=== PATIENT | female | born 1950 | race Caucasian/White ===

== ENCOUNTER → 2024-01-26 10:58 | Outpatient (REF) | payer BC, SELFPAY | LOC: HWRAD 10:58 | PROVIDERS: ATTENDING PHYSICIAN Internal Medicine Hematology & Oncology; FAMILY PHYSICIAN Family Medicine | DX: C25.0 Malignant neoplasm of head of pancreas (principal); D64.9 Anemia, unspecified; D39.11 Neoplasm of uncertain behavior of right ovary | CPT/HCPCS: 71260; 74177; Q9967 ==

== ENCOUNTER → 2024-03-03 10:49 | Outpatient (REF) | payer BC, SELFPAY | LOC: PET 10:49 | PROVIDERS: ATTENDING PHYSICIAN Internal Medicine Hematology & Oncology | DX: C25.0 Malignant neoplasm of head of pancreas (principal) | CPT/HCPCS: 78815; A9552 ==

== ENCOUNTER → 2024-04-21 10:44 | Outpatient (REF) | payer BC, SELFPAY | LOC: HWRAD 10:44 | PROVIDERS: ATTENDING PHYSICIAN Internal Medicine Hematology & Oncology; FAMILY PHYSICIAN Family Medicine | DX: C25.0 Malignant neoplasm of head of pancreas (principal); D64.9 Anemia, unspecified; C79.61 Secondary malignant neoplasm of right ovary; C79.62 Secondary malignant neoplasm of left ovary | CPT/HCPCS: 71260; 74177; Q9967 ==

== ENCOUNTER → 2024-04-29 11:05 | Outpatient (REF) | payer BC, SELFPAY | LOC: RCS 11:05 | PROVIDERS: ATTENDING PHYSICIAN Internal Medicine Critical Care Medicine; FAMILY PHYSICIAN Family Medicine | DX: R01.1 Cardiac murmur, unspecified (principal) | CPT/HCPCS: 93306 ==

== ENCOUNTER 2024-05-15 06:35 | Day surgery (SDC) | payer BC, SELFPAY ==
[2024-05-04 14:04] VITALS: BMI 19.2
[2024-05-04 14:31] LABS: Hematocrit 33.7 % (37.0-47.0); Hemoglobin 11.1 g/dL (12.0-16.0); Mean Corp Hgb Conc. 32.9 g/dL (33.0-37.0); Mean Corpuscular Hgb 28.9 pg (27.0-31.0); Mean Corpuscular Volume 87.8 fL (81.0-99.0); Mean Platelet Volume 9.3 fL (7.4-10.4); Platelet Count 352 10^3/uL (130-400); Red Blood Cell Count 3.84 10^6/uL (4.20-5.40); Red Cell Dist. Width 14.8 % (11.5-14.5); White Blood Cell Count 5.3 10^3/uL (4.8-10.8)
[2024-05-04 14:40] LABS: INR 0.91; PT 12.3 Sec (11.4-14.6)
[2024-05-04 14:41] LABS: APTT 28.2 Sec (23.4-35.0)
[2024-05-04 14:52] LABS: Blood Urea Nitrogen 22 mg/dl (7-17); Calcium 9.5 mg/dl (8.4-10.2); Carbon Dioxide 25 mmol/L (22-30); Chloride 102 mmol/L (98-107); Estimated Creatinine Clearance 43 ml/min; Glucose 71 mg/dl (70-99); Potassium 4.5 mmol/L (3.5-5.1); Sodium 139 mmol/L (135-145); eGFR > 60.00
[2024-05-15] VITALS (10 sets, daily range): BP systolic 94–140; BP diastolic 54–101; BMI 19.2
[2024-05-15] MEDS: DUONEB 3 ML INH (08:22)
--- NOTE | 2024-05-15 11:46 | SUR.PHASEI ---
comfortable, Dr Caal visits in pacu - has reviewed CXR and okay for discharge. No SOB, no hemoptysis. Phase II started in pacu
== END 2024-05-15 11:43 | disposition home or self-care (01) ==
LOC: SDS 06:35
PROVIDERS: ATTENDING PHYSICIAN Internal Medicine Critical Care Medicine; FAMILY PHYSICIAN Nurse Practitioner Family
DX: R91.1 Solitary pulmonary nodule (principal)
CPT/HCPCS: 31629; 31623; 31627; 31654; 31624; 88172; 88173; 88305; 36415; 71045; 76000; 80048; 85027; 85610; 85730; 87015; 87070; 87102; 87116; 87205; 88112; 88333; 93005; 94640; C1887

== ENCOUNTER → 2024-06-09 08:48 | Outpatient (REF) | payer BC, SELFPAY | LOC: RAD 08:48 | PROVIDERS: ATTENDING PHYSICIAN Internal Medicine Hematology & Oncology; FAMILY PHYSICIAN Family Medicine | DX: D64.9 Anemia, unspecified (principal); C79.62 Secondary malignant neoplasm of left ovary; C79.61 Secondary malignant neoplasm of right ovary | CPT/HCPCS: 71250 ==

== ENCOUNTER → 2024-06-23 07:48 | Outpatient (REF) | payer BC, SELFPAY | LOC: PET 07:48 | PROVIDERS: ATTENDING PHYSICIAN Internal Medicine Hematology & Oncology | DX: C25.0 Malignant neoplasm of head of pancreas (principal) | CPT/HCPCS: 78815; A9552 ==

== ENCOUNTER → 2024-07-05 10:38 | Outpatient (REF) | payer BC, SELFPAY | LOC: WDC 10:38 | PROVIDERS: ATTENDING PHYSICIAN Family Medicine | DX: Z12.31 Encounter for screening mammogram for malignant neoplasm of breast (principal) | CPT/HCPCS: 77063; 77067 ==

== ENCOUNTER → 2024-08-31 08:45 | Outpatient (REF) | payer BC, SELFPAY | LOC: RSP 08:45 | PROVIDERS: REFERRING PHYSICIAN Internal Medicine Hematology & Oncology | DX: R91.1 Solitary pulmonary nodule (principal) | CPT/HCPCS: 94727; 94729; 88738; 93005; 94010 ==

== ENCOUNTER → 2024-10-02 07:25 | Outpatient (REF) | payer BC, SELFPAY ==
[2024-10-02 07:46] VITALS: BP 138/71; BP_SYST 77
[2024-10-02] MEDS: VANCOCIN 200 IV (08:10)
[2024-10-02 09:20] VITALS: BP 122/66; BP_SYST 68
[2024-10-02 09:48] VITALS: BP 115/64
== END ==
LOC: RADI 07:25
PROVIDERS: ATTENDING PHYSICIAN Internal Medicine Hematology & Oncology; FAMILY PHYSICIAN Family Medicine
DX: C25.0 Malignant neoplasm of head of pancreas (principal)
CPT/HCPCS: 36561; 76937; 77001; 99152; 99153; C1788

== ENCOUNTER → 2024-10-04 07:24 | Outpatient (REF) | payer BC, SELFPAY | LOC: RAD 07:24 | PROVIDERS: ATTENDING PHYSICIAN Internal Medicine Hematology & Oncology; FAMILY PHYSICIAN Family Medicine | DX: C78.02 Secondary malignant neoplasm of left lung (principal); C25.0 Malignant neoplasm of head of pancreas; D64.9 Anemia, unspecified; C79.62 Secondary malignant neoplasm of left ovary; C79.61 Secondary malignant neoplasm of right ovary; R91.1 Solitary pulmonary nodule | CPT/HCPCS: 71260; 74177; Q9967 ==

== ENCOUNTER → 2024-11-27 08:48 | Outpatient (REF) | payer BC, SELFPAY | LOC: RAD 08:48 | PROVIDERS: ATTENDING PHYSICIAN Internal Medicine Hematology & Oncology; FAMILY PHYSICIAN Family Medicine | DX: C25.0 Malignant neoplasm of head of pancreas (principal); C79.62 Secondary malignant neoplasm of left ovary; D64.9 Anemia, unspecified; C79.61 Secondary malignant neoplasm of right ovary; R91.1 Solitary pulmonary nodule; C79.02 Secondary malignant neoplasm of left kidney and renal pelvis | CPT/HCPCS: 71260; 74177; 93306; Q9967 ==

== ENCOUNTER 2024-12-22 12:54 | Inpatient (IN) | payer BC, MEDICARE, SELFPAY ==
[2024-12-22] VITALS (9 sets, daily range): BP systolic 103–172; BP diastolic 62–80; BMI 17.8; BMI 17.7
--- NOTE | 2024-12-22 07:30 | ED.GENMED ---
History of Present Illness
General
Chief Complaint: Abdominal Pain
Source: patient and spouse (Spouse reports patient follows with oncology)
Exam Limitations: none
Time Seen by Provider: 12/22/24 07:14
Nursing documentation reviewed up to this point in time: agreed with
History of Present Illness
History of Present Illness:
74-year-old female presents to the emergency department due to severe lower abdominal cramping since 2:30 AM, as well as nausea and vomiting. She took gabapentin but vomited it. No aggravating or relieving factors. She has a history of pancreatic
cancer.
Past History
Past History
ED Past Medical History: Cancer (Pancreatic)
ED Past Surgical History: Cholecystectomy and Other
Social History
Tobacco: Former smoker
Alcohol: None
Drug: None
Personal:
Living: with family
Review of Systems
Review of Systems
Allergies reviewed?: Yes
All Other Systems: Not applicable
Constitutional: Reports no symptoms
EENT: Reports no symptoms
Respiratory: Reports no symptoms
Cardiac: Reports no symptoms
ABD/GI: Reports abdominal pain, nausea and vomiting
: Reports no symptoms
Musculoskeletal: Reports no symptoms
Skin: Reports no symptoms
Neurological: Reports no symptoms
Endocrine: Reports no symptoms
Hematologic/Lymphatic: Reports no symptoms
Psychiatric: Reports no symptoms
Phy Exam
Physical Exam
Physical Exam:
Physical Exam
General: no apparent distress, not acutely ill
Neck: supple. no meningeal signs. normal posterior pharynx
Heart: s1/s2 regular rate and rhythm, no murmur. equal radial
pulses.
HEENT: Pupils equal round reactive to light, EOMI
Lungs: no acute respiratory distress. clear bilaterally
Abdomen: normal bowel sounds. Midline abdominal scarring, diffuse tenderness no rebound or guarding.
Neuro: alert and oriented. no focal neurological deficits cranial nerves II through XII intact
Skin: no rash
Psychiatric: well kept. interactive and cooperative
Extremities: no edema. no calf tenderness. negative homans. good distal pulses
Course
Orders/Labs/Results
Orders:
Orders
12/22/24 07:29
CT Abd/Pel (IV only)-DH only Urgent
Comment:
Reason For Exam: diffuse abd pain
Cardiac Monitoring- Treatment ONCE
IV Insert/Care/Rem.- Treatment PRN
HYDROmorphone [Dilaudid] 0.5 mg IV NOW STA
Ondansetron Injectable [Zofran] 4 mg IV NOW STA
12/22/24 07:30
Lactated Ringers [Lr] 1,000 ml IV BOLUS
12/22/24 08:09
Complete Blood Count/With Diff Urgent
Comprehensive Metabolic Panel Urgent
Lipase Urgent
12/22/24 09:11
HYDROmorphone [Dilaudid] 0.5 mg IV NOW STA
12/22/24 11:17
HYDROmorphone [Dilaudid] 0.5 mg IV NOW STA
12/22/24 11:51
Admit/Transfer Patient As Directed
Co-Sign Provider:
Level of Care: Inpatient admission
Assign to:: Medical/Surgical
Physician / Group: [place]
Diagnosis: SBO
Reason for Hospitalization: NPO, surgical consult
Expected length of stay greater than two midnights?: Yes
ELOS- Estimated Length of Stay in days: 3
I certify the patient meets the requirements for IP care: Yes
PRN Pain Medication Management As Directed
May give lesser potent ordered pain med per pt: Yes
preference::
Protocol:: Medication orders for pain may be administered in a
manner that supports deferring to patient preference
when the pt is:
- Requesting an ordered lesser potent pain medication.
Least to most potent pain medications are defined
as: acetaminophen < NSAID < tramadol < opioids
(morphine, oxycodone, hydromorphone).
- Requesting a lesser dose of the same medication IF
ORDERED.
- Requesting a less intrusive route of administration
if both routes are prescribed by the provider (PO <
IV).
12/22/24 11:52
Code Status As Directed
Resuscitation Status: Full Code
Abnormal Lab Results
12/22/24
08:09
RBC 3.92 L 10^6/uL
(4.20-5.40)
Hgb 10.3 L g/dL
(12.0-16.0)
Hct 31.3 L %
(37.0-47.0)
MCV 79.8 L fL
(81.0-99.0)
MCH 26.3 L pg
(27.0-31.0)
MCHC 32.9 L g/dL
(33.0-37.0)
RDW 16.6 H %
(11.5-14.5)
Absolute Lymphs (auto) 0.3 L 10^3/uL
(1.2-3.4)
Neutrophils % 90.8 H %
(42.2-75.2)
Lymphocytes % 4.5 L %
(20.5-51.1)
Sodium 133 L mmol/L
(135-145)
Creatinine 0.4 L mg/dL
(0.6-1.0)
Glucose 169 H mg/dl
(70-99)
12/22/24 08:09
12/22/24 08:09
Vital Signs
Initial and Last Documented VS:
Initial Vital Signs
Temp Pulse Resp BP Pulse Ox
97.6 F 64 18 162/78 99
12/22/24 07:08 12/22/24 07:08 12/22/24 07:08 12/22/24 07:08 12/22/24 07:08
Last Documented Vital Signs
Temp Pulse Resp BP Pulse Ox
97.6 F 71 19 149/62 96
12/22/24 07:08 12/22/24 11:00 12/22/24 11:00 12/22/24 11:00 12/22/24 11:00
MDM/Problems Addressed
Differential Diagnosis Includes:
Bowel obstruction, diverticulitis
MDM/Problems Addressed:
74-year-old female with small bowel obstruction. Admit to hospitalist. General surgery notified
Chronic conditions affecting care: Previous abdomnial surgery (Whipple) and Cancer (Pancreatic cancer)
Acute Exacerbation and/or Progression of Chronic Illness: Previous abdomnial surgery (Whipple) and Cancer (Pancreatic cancer)
*Radiology
Radiology exam reviewed: radiology read reviewed (CT abdomen pelvis shows small bowel obstruction)
*Pulse Oximetry
Patient hypoxic: no
*Critical Care Note
Total Time (30-74mins, 75-104mins- exclusive of procedures): Not Applicable
Patient Management
Social determinants of health affecting care: Living situation and Strong social support
Discussion with other providers: Hospitalist and Leadership Development Instructor (General surgery)
Escalation/DeEscalation of care consider admission/obs:
Admission indicated
ED Attending Note
-
Portions of this chart may have been created with voice recognition software.� Occasional wrong word or��sound alike� substitutions may have occurred due to the inherent limitations of voice recognition software.
Discharge Plan
Departure
Patient Disposition: Admit
Date of Disposition: 12/22/24
Time of Disposition: 10:21
Admit to: Med/Surg
Presentation/result/management discussed w/ accepting MD/DO: Hospitalist
Patient with high blood pressure during this ER visit?: Yes
Condition: Fair
Discharge Problem:
Small bowel obstruction
Prescriptions:
No Action
Centrum 1 EACH tablet
1 ea PO DAILY
ascorbic acid (vitamin C) 500 MG capsule
500 mg PO DAILY
lansoprazole 30 mg Capsule,Delayed Release(Dr/Ec)
30 mg PO DAILY
Creon 24,000-76,000 -120,000 unit Capsule,Delayed Release(Dr/Ec)
1 cap PO TID
gabapentin 300 mg Capsule
300 mg PO BID
polyethylene glycol 3350 [Miralax] 17 gram/dose Powder
17 g PO DAILY
Prolia 60 mg/mL Syringe
60 mg SC [id number]
lorazepam 0.5 mg Tablet
0.5 mg PO HSPRN PRN (Reason: SLEEP)
ibuprofen [Advil] 200 mg Tablet
600 mg PO DAILYPRN PRN (Reason: MILD PAIN)
Referrals:
Myesha Hall MD [Family Provider] -
Interventions
Interventions:
*Risk Screen - Suicide Last Done: 12/22/24 07:08
*General Assessment Last Done: 12/22/24 07:08
*Neglect/Abuse Screening Last Done: 12/22/24 07:08
IP-Uxqxdg-Pnalmzqidv Assessment Last Done: 12/22/24 08:30
Discharge Date and Time
Print Language: GUAMANIAN
[2024-12-22] MEDS: DILAUDID 0.5 MG IV ×6 (08:11→22:33)
[2024-12-22] MEDS: ZOFRAN 4 MG IV ×2 (08:11→14:41)
[2024-12-22] MEDS: LR 1000 IV ×2 (08:15→14:32)
[2024-12-22 08:25] LABS: % Basophils 0.5 % (0-2); % Eosinophils 0.2 % (0-6); % Immature Granulocytes 0.2 % (0-0.5); % Lymphocytes 4.5 % (20.5-51.1); % Monocytes 3.8 % (1.7-9.3); % Neutrophils 90.8 % (42.2-75.2); Absolute Lymphocytes 0.3 10^3/uL (1.2-3.4); Absolute Monocytes 0.2 10^3/uL (0.1-0.6); Absolute Neutrophils 5.3 10^3/uL (1.4-6.5); Hematocrit 31.3 % (37.0-47.0); Hemoglobin 10.3 g/dL (12.0-16.0); Mean Corp Hgb Conc. 32.9 g/dL (33.0-37.0); Mean Corpuscular Hgb 26.3 pg (27.0-31.0); Mean Corpuscular Volume 79.8 fL (81.0-99.0); Mean Platelet Volume 8.8 fL (7.4-10.4); Nucleated Red Blood Cells % 0 %; Platelet Count 330 10^3/uL (130-400); Red Blood Cell Count 3.92 10^6/uL (4.20-5.40); Red Cell Dist. Width 16.6 % (11.5-14.5); White Blood Cell Count 5.8 10^3/uL (4.8-10.8)
[2024-12-22 08:41] LABS: ALT (SGPT) 18 U/L (0-35); AST (SGOT) 20 U/L (14-36); Albumin 4.3 g/dl (3.5-5.0); Alkaline Phosphatase 65 U/L (38-126); Blood Urea Nitrogen 16 mg/dl (7-17); Carbon Dioxide 24 mmol/L (22-30); Chloride 103 mmol/L (98-107); Estimated Creatinine Clearance 59 ml/min; Glucose 169 mg/dl (70-99); Lipase 42 U/L (23-300); Potassium 4.3 mmol/L (3.5-5.1); Sodium 133 mmol/L (135-145); Total Bilirubin 0.3 mg/dl (0.2-1.3); Total Protein 6.7 g/dl (6.3-8.2); eGFR > 60.00
--- NOTE | 2024-12-22 11:03 | CON.GS ---
Addendum entered and electronically signed by Harry Allen MD 12/22/24 16:15:
Patient seen and examined.
Patient is a 74 yo F with a PMH of GERD, RA, h/o DVT, and stage IV pancreatic cancer s/p open Whipple procedure with known metastases to the ovaries s/p DELMAR/BSO in 2023 and lung s/p VATS procedure in 09/2024 currently on chemotherapy. Ms. Mercado
presents with abdominal discomfort and distention. She states that her symptoms began somewhat acutely yesterday evening. Associated nausea and vomiting. Pain mostly localized to the RLQ. She did note some mild reflux in the 24 hours preceding
her symptoms. Currently she states that her symptoms are mildly improved. She denies any current nausea or vomiting. Last episode of flatus was yesterday evening. She does report passing 2 normal nonbloody stools today. She denies any prior
issues with bowel obstructions. No clear dietary indiscretion. She follows with Dr. Myesha Hall for an Oncologist, currently on chemotherapy, last dose 12/06.
Gen: NAD
Abd: soft, moderate tenderness in lower abdomen, mild distension, no diffuse peritonitis, prior incisions well healed
Labs and CT scan imaging were reviewed
Patient is a 74 yo F p/w SBO
Cause of SBO likely adhesions versus malignancy. No worrisome signs or symptoms either clinically or radiographically for bowel ischemia or perforation. No indication or need for emergent operation. Recommend medical management with bowel rest.
All questions answered.
-- NPO, IVF, NGT decompression if nausea or emesis
-- SBFT if no improvement in 24-48 hours
-- Recommend Oncology consult given history, repeat CA19-9 ordered
Original Note:
Consultation
-
Date/Time Consultation Performed: 12/22/24 1100
Medical History
-
Chief Complaint: n/v/abd pain
History of Present Illness:
Ms Mercado is a 74 yo female with a h/o pancreatic cancer initially tx with chemo followed by Whipple procedure in 2021 with negative lymph nodes at that time subsequently diagnosis with metastasis to bilateral ovaries with DELMAR/BSO in 2023 and to the
lung with VATS 09/2024 and is currently on q3week chemotherapy with her last dose on December 06. She presents today with abdominal cramping, RLQ tenderness and nausea with vomiting. She notes that this morning she had 2 BM's quite early in the day
which were formed and then subsequently began vomiting bile around 5:30am causing her to present to the ED for evaluation. She notes no further nausea at this time although abdominal cramping persists. She is tender to the RLQ without significant
distention on exam.
Past Medical History
Past Medical History: Cancer (metastatic pancreatic cancer tx with chemo and surgery, actively on chemo), GERD and Other (RA, DVT)
Past Surgical History: Bowel Resection (Whipple 2021), Cholecystectomy (at time of whipple), Gynecological (DELMAR/BSO via midline incision 09/2023), Orthopedic (trigger finger) and Other (Colonoscopy 10/2022 with polyps, VATS procedure 09/2024,
[place])
Social History
Tobacco: Former Smoker (quit 09/2022)
Personal:
Living: With Family
Family History
Family History: Reviewed & Not Pertinent
Allergies / Home Medications
Allergy/AdvReac Type Severity Reaction Status Date / Time
hydroxychloroquine Allergy Rash Verified 12/22/24 07:08
Penicillins Allergy nausea/dizz Verified 12/22/24 07:08
iness
�Medication �Instructions �Recorded �Confirmed �Type
ascorbic acid (vitamin C) 500 mg 500 mg PO DAILY 05/01/21 12/22/24 History
capsule
multivitamin-ferrous 1 ea PO DAILY 05/01/21 12/22/24 History
fumarate-folic acid 18 mg-400 mcg
tablet (Centrum)
lansoprazole 30 mg capsule,delayed 30 mg PO DAILY 12/10/22 12/22/24 History
release
[id number]-[id number] 1 cap PO TID 05/11/24 12/22/24 History
24,000-76,000-120,000 unit
capsule,delayed rel (Creon)
denosumab 60 mg/mL subcutaneous 60 mg SC [id number] 09/28/24 12/22/24 History
syringe (Prolia)
gabapentin 300 mg capsule 300 mg PO BID 09/28/24 12/22/24 History
polyethylene glycol 3350 17 17 g PO DAILY 09/28/24 12/22/24 History
gram/dose oral powder (Miralax)
ibuprofen 200 mg tablet (Advil) 600 mg PO DAILYPRN PRN MILD PAIN 12/22/24 12/22/24 History
lorazepam 0.5 mg tablet 0.5 mg PO HSPRN PRN SLEEP 12/22/24 12/22/24 History
Review of Systems
-
History Source: Patient and Family
All other systems: Negative unless noted
A 10 point review of systems was completed, and was negative except as per HPI.
Physical Exam
Vital Signs
Temp Pulse Resp BP Pulse Ox
97.6 F 79 14 156/80 96
12/22/24 07:08 12/22/24 10:30 12/22/24 10:30 12/22/24 10:00 12/22/24 10:30
12/21/24 12/22/24 12/23/24
06:59 06:59 06:59
Actual Weight 44.2 kg
Body Mass Index (BMI) 17.8
Lab Results
12/22/24 08:09
12/22/24 08:09
WBC 5.8 10^3/uL (4.8-10.8) 12/22/24 08:09
Hgb 10.3 g/dL (12.0-16.0) L 12/22/24 08:09
Hct 31.3 % (37.0-47.0) L 12/22/24 08:09
Plt Count 330 10^3/uL (130-400) 12/22/24 08:09
Abs Immat Gran (auto) 0.0 10^3/uL (0-0.05) 12/22/24 08:09
Neutrophils % 90.8 % (42.2-75.2) H 12/22/24 08:09
Physical Exam
General: No Apparent Distress
HEENT: Moist Mucous Membranes
Respiratory: Non Labored Respirations
GI: Soft, Non Distended and Tender (RLQ)
Skin: Warm and Dry
Neuro: Awake, Alert and AO x 3
Psych: Calm
Data Reviewed
-
CT Scan: Image Personally Visualized and interpreted, Report Reviewed by me, Discussed with Physician, Discussed with Patient and Discussed with Family
Labs: Labs Reviewed by me, Discussed with Physician, Discussed with Patient and Discussed with Family
Old Records: Reviewed
Assessment / Plan
-
74 yo female with a h/o metastatic pancreatic cancer tx with chemo then Whipple in 2021, delmar/bso for mets in 2023 and VATS for pulm mets early this year with port placement and resumption of chemotherapy this spring (LD 12/06) presenting with
n/v/cramping abdominal pain with focal tenderness in the RLQ which began earlier this morning. She was able to pass 2 stools this am prior to onset of symptoms. No active nausea currently after 3 episodes of emesis this am. AFVSS. No leukocytosis.
CT imaging reviewed probable soft tissue implant along the anterior margin of the left hepatic lobe (known). SBO with transition point near the TI, suspect secondary to adhesions although metastatic dz remains in the differential.
--Place NGT if n/v continues
--Strict NPO
--IVF while NPO
Will review imaging with surgical attending and update surgical recommendations
--- NOTE | 2024-12-22 11:55 | HPS.HSE ---
Family Physician
-
Family Physician: Myesha Hall
Chief Complaint
-
Abdominal pain, vomiting
History of Present Illness
74-year-old female with pancreatic cancer here complaining of severe abdominal pain that started during the night with associated vomiting.
Currently on chemotherapy for pancreatic cancer.
Was in her usual state of health yesterday and actually went to work. Denies history of bowel obstruction.
Medical History
Past Medical History
Past Medical History: Reports Other
Additional Past Medical History:
Pancreatic cancer
Rheumatoid arthritis
Hyperlipidemia
Osteoporosis
GERD
DVT
Psoriasis
Severe protein calorie malnutrition
Internal hemorrhoids
Past Surgical History: Reports Orthopedic, Tonsilectomy and Other
Additional Past Surgical History:
Whipple procedure 2021
Cholecystectomy at time of Whipple
DELMAR/BSO 2023
Social History
Tobacco: Former Smoker
Alcohol: Daily
Drug: None
Personal:
Living: With Family
Employment: Employed
Family History
Family History: Not pertinent
Allergies / Home Medications
Allergies reflects when Allergies were last updated in [facility].
Home Medications with original date entered in [facility]
Allergy/Medication List:
Allergies
Allergy/AdvReac Type Severity Reaction Status Date / Time
hydroxychloroquine Allergy Rash Verified 12/22/24 07:08
Penicillins Allergy nausea/dizz Verified 12/22/24 07:08
iness
Home Medications
ascorbic acid (vitamin C) 500 mg capsule 500 mg PO DAILY 05/01/21
multivitamin-ferrous fumarate-folic acid 18 mg-400 mcg tablet (Centrum) 1 ea PO DAILY 05/01/21
lansoprazole 30 mg capsule,delayed release 30 mg PO DAILY 12/10/22
wzkaqp-[id number]-qkuwhgu 24,000-76,000-120,000 unit capsule,delayed rel (Creon) 1 cap PO TID 05/11/24
denosumab 60 mg/mL subcutaneous syringe (Prolia) 60 mg SC [id number] 09/28/24
gabapentin 300 mg capsule 300 mg PO BID 09/28/24
polyethylene glycol 3350 17 gram/dose oral powder (Miralax) 17 g PO DAILY 09/28/24
ibuprofen 200 mg tablet (Advil) 600 mg PO DAILYPRN PRN MILD PAIN 12/22/24
lorazepam 0.5 mg tablet 0.5 mg PO HSPRN PRN SLEEP 12/22/24
Review of Systems
-
History Source: Patient and Family
A 12 point ROS was completed and negative except as noted: Yes
Abdomen/GI: Reports Abdominal Pain, Nausea and Vomiting
Physical Exam
Vital Signs
Vital Signs
Temp Pulse Resp BP Pulse Ox
97.6 F 71 19 149/62 96
12/22/24 07:08 12/22/24 11:00 12/22/24 11:00 12/22/24 11:00 12/22/24 11:00
Physical Exam
General: No Apparent Distress, Comfortable and Cachectic
HEENT: NormoCephalic, Anicteric and Moist mucous membranes
Respiratory: Clear
Cardiac: S1/S2 and Regular Rhythm
GI: Soft, Non Distended and Tender
Musculoskeletal: No Clubbing, No Cyanosis, No Edema and Other (Ulnar deviation of fingers bilaterally)
Skin: Warm and Dry
Neuro: AO x 3
Hematologic/Lymphatic: No Lymphadenopathy
Psych: Calm
Laboratory Results
-
12/22/24 08:09
12/22/24 08:09
Laboratory Results
Total Bilirubin 0.3 mg/dl (0.2-1.3) 12/22/24 08:09
AST 20 U/L (14-36) 12/22/24 08:09
ALT 18 U/L (0-35) 12/22/24 08:09
Alkaline Phosphatase 65 U/L (38-126) 12/22/24 08:09
Lipase 42 U/L (23-300) 12/22/24 08:09
Impression/Plan
-
Small bowel obstruction -onset of symptoms last night. CT scan demonstrates several mildly dilated fluid-filled small bowel loops within the pelvis with questionable transition point in the area of the terminal ileum.
Admit to MedSurg. Keep NPO. Continue IV fluids, antiemetics. Consult general surgery.
This is her first episode of SBO. Suspect related to adhesions from prior abdominal surgery.
Metastatic pancreatic cancer -on chemotherapy. Followed by Dr. Hall. Has a port in place.
Hypovolemic hyponatremia -should correct with IV fluid support.
Rheumatoid arthritis -not on active treatment.
Chronic inflammatory anemia -hemoglobin stable.
Full code
updated at the bedside.
[2024-12-22] MEDS: HEPARIN 5000 UNITS SC ×2 (15:10→22:33)
--- NOTE | 2024-12-22 19:00 | PTCARENOTE ---
Pt received from ED. Walked to bed from stretcher with minimal assistance. Pt complaining of 7/10 pain in abdomen and nausea. PRN zofran and dilaudid administered. Admission completed by this RN. strict NPO at this time. Pt still having complaints
of pain. MD made aware. Dilaudid increased to Q3 hr. Medication administered. Call mathews within reach, will continue to monitor.
[2024-12-23] MEDS: DILAUDID 0.5 MG IV ×3 (01:57→08:27)
[2024-12-23] MEDS: LR 1000 IV ×2 (03:24→16:08)
[2024-12-23 05:20] LABS: % Eosinophils 0.3 % (0-6); % Immature Granulocytes 0.3 % (0-0.5); % Lymphocytes 10.6 % (20.5-51.1); % Monocytes 14.8 % (1.7-9.3); Absolute Lymphocytes 0.3 10^3/uL (1.2-3.4); Absolute Monocytes 0.5 10^3/uL (0.1-0.6); Absolute Neutrophils 2.3 10^3/uL (1.4-6.5); Hematocrit 30.4 % (37.0-47.0); Mean Corp Hgb Conc. 32.9 g/dL (33.0-37.0); Mean Corpuscular Hgb 26.3 pg (27.0-31.0); Mean Platelet Volume 8.9 fL (7.4-10.4); Nucleated Red Blood Cells % 0 %; Platelet Count 294 10^3/uL (130-400); Red Cell Dist. Width 16.5 % (11.5-14.5); White Blood Cell Count 3.1 10^3/uL (4.8-10.8)
[2024-12-23 05:38] LABS: Blood Urea Nitrogen 19 mg/dl (7-17); Calcium 8.2 mg/dl (8.4-10.2); Carbon Dioxide 26 mmol/L (22-30); Chloride 104 mmol/L (98-107); Estimated Creatinine Clearance 57 ml/min; Glucose 108 mg/dl (70-99); Potassium 4.3 mmol/L (3.5-5.1); Sodium 133 mmol/L (135-145); eGFR > 60.00
[2024-12-23 07:00] VITALS: BP 131/68
[2024-12-23] MEDS: HEPARIN 5000 UNITS SC ×3 (08:30→22:25)
[2024-12-23] MEDS: ZOFRAN 4 MG IV (08:32)
--- NOTE | 2024-12-23 09:42 | W.PN.GS2 ---
Addendum entered and electronically signed by Harry Allen MD 12/23/24 12:27:
Patient seen and examined.
Denies worsening abdominal pain. Does report issues with nausea and vomiting earlier this AM. No fevers. No further flatus or BM.
Gen: NAD
Abd: soft, stable tenderness and distension, non-peritoneal, prior incisions well healed
Patient is a 74 yo F p/w SBO secondary to adhesions or malignancy in the setting a h/o metastatic pancreatic cancer tx with chemo then Whipple in 2021, DELMAR/BSO for mets in 2023 and VATS for pulm mets early this year with port placement and
resumption of chemotherapy this spring (LD 12/06)
CT (12/22) with SBO with likely transition in RLQ, limited by lack of PO contrast
AFVSS
Leukopenia noted, labs otherwise stable
No clinical improvement with N/V this AM with pain. No passage of flatus. Given her issues recommend NGT placement for symptomatic relief as well as a more durable way of administering contrast. Tentative plan for SBFT later today versus tomorrow.
--Place NGT to LIWS
--Check SBFT later today versus tomorrow
--Continue antiemetics/analgesics. Added nonnarcotic analgesics: Ofirmev and Toradol prn
--NPO/IVF
--DVT: SQH
--GI: PPI
Original Note:
Today's Communication / Plan
-
Place NGT
Check SBFT
Assessment / Plan
-
74 yo female with a h/o metastatic pancreatic cancer tx with chemo then Whipple in 2021, delmar/bso for mets in 2023 and VATS for pulm mets early this year with port placement and resumption of chemotherapy this spring (LD 12/06) presenting with SBO
likely adhesions versus malignancy, CT limited by lack of PO contrast
AFVSS
Leukopenia noted, labs otherwise stable
N/V this am with pain. No passage of flatus
--Place NGT to LIWS
--Check SBFT
--Continue antiemetics/analgesics. Added nonnarcotic analgesics: Ofirmev and Toradol prn
--NPO/IVF
--VTE ppx with heparin sq
Subjective Data
-
Date of Service: December 23, 2024
Patient seen and examined at bedside with Dr. Allen. N/V this am with abdominal pain; feeling better after analgesic/antiemetic. Not passing flatus or stools.
Objective Data
-
Intake and Output
12/22/24 12/23/24 12/24/24
06:59 06:59 06:59
Intake Total 0 / 0
Balance 0 / 0
Intake:
Oral fluids 0 / 0
Other:
Number of approximated MODERATE 1
amounts of urine
Vital Signs
Temp Pulse Resp BP Pulse Ox
99.1 F 72 17 131/68 94
12/23/24 07:00 12/23/24 07:00 12/23/24 07:00 12/23/24 07:00 12/23/24 07:00
Lab Results
12/23/24 04:54
12/23/24 04:54
Calcium 8.2 mg/dl (8.4-10.2) L 12/23/24 04:54
Total Bilirubin 0.3 mg/dl (0.2-1.3) 12/22/24 08:09
AST 20 U/L (14-36) 12/22/24 08:09
ALT 18 U/L (0-35) 12/22/24 08:09
Alkaline Phosphatase 65 U/L (38-126) 12/22/24 08:09
Total Protein 6.7 g/dl (6.3-8.2) 12/22/24 08:09
Albumin 4.3 g/dl (3.5-5.0) 12/22/24 08:09
Physical Exam
-
NAD
ABD softly distended, tenderness to lower abd l>r
Patient has a gauthier catheter: No
Patient has a central line: Yes (port)
--- NOTE | 2024-12-23 12:04 | W.PN.HOSP.TC ---
Today's Communication/Plan
-
Continue supportive care
Small bowel follow-through
Assessment / Plan
Assessment / Plan
Gen-AAOx3, NAD
HEENT-NC, AT, anicteric, clear oral mm
Neck-supple
CV-reg, no M, +S1/S2
Lungs-clear B/L
Abd-soft, NT, ND
Ext-no edema
Musculoskeletal-no cyanosis, clubbing
Skin-warm and dry
Neuro-grossly non-focal
Psych-calm, cooperative
Small bowel obstruction - CT scan demonstrates several mildly dilated fluid-filled small bowel loops within the pelvis with questionable transition point in the area of the terminal ileum.
NG tube placed 12/23. Waiting for return of bowel function. Continue IV fluids, antiemetics. General surgery service following.
This is her first episode of SBO. Suspect related to adhesions from prior abdominal surgery.
Await small bowel follow-through x-ray today.
Metastatic pancreatic cancer -on chemotherapy. Followed by Dr. Hall. Has a port in place.
Hypovolemic hyponatremia -sodium stable.
Rheumatoid arthritis -not on active treatment.
Chronic inflammatory anemia -hemoglobin stable.
Leukopenia -unclear etiology. Monitor for now.
Full code
updated at the bedside.
Anticipated Discharge: > 48 hours
Subjective/Interval History
-
Date of Service: December 23, 2024
Patient seen and examined. Less abdominal pain today. Not passing gas or bowels.
Objective Data
-
Labs:
Laboratory Results
12/23/24
04:54
WBC 3.1 L
Hgb 10.0 L
Hct 30.4 L
Plt Count 294
Sodium 133 L
Potassium 4.3
Chloride 104
Carbon Dioxide 26
BUN 19 H
Creatinine 0.5 L
Glucose 108 H
Calcium 8.2 L
Vital Signs:
Vital Signs
Temp Pulse Resp BP Pulse Ox
99.1 F 72 17 131/68 94
12/23/24 07:00 12/23/24 07:00 12/23/24 07:00 12/23/24 07:00 12/23/24 07:00
I&O
12/22/24 12/23/24 12/24/24
06:59 06:59 06:59
Intake Total 0 / 0
Balance 0 / 0
Review of Systems
-
History Source: Patient
All other systems: Reviewed and negative
[2024-12-23] MEDS: COMPAZINE 10 MG IV (13:12)
[2024-12-23 15:00] VITALS: BP 139/81
--- NOTE | 2024-12-23 15:39 | CON.ONC ---
Consultation
-
Date Consultation Requested: 12/22/24
Date Consultation Performed: 12/23/24
Requesting Provider: pool
Performing Provider: guille hansen
Reason for Consultation: metastatic pancreatic cancer, SBO
Impression
Impression
- Small bowel obstruction
- stage IV pancreatic cancer
Plan
Plan
# SBO
- presenting with acute onset abdominal pain, n/v. imaging suspicious for small bowel obstruction with transition point at terminal ileum. no obvious metastatic disease in this region. high risk for adhesions with multiple prior bowel surgeries.
- surgery following, no plan for surgery at this time. NGT placed with improvement in symptoms. apprec recs.
- repeat CA19-9 ordered, last prior to starting this tx in sep was 76. Unclear if bowel obstruction will impact reliability of this study.
# Stage IV pancreatic cancer
- recurrence after whipple with ovarian lesion sp resection, lung lesions and possible peritoneal lesion near liver.
- on Enhertu since sep with HER2 expression 3+. recent restaging CT showed positive response with decrease of several lung lesions. no new disease. CT AP on this admission without obvious new disease, new pelvic ascites in setting of obstruction.
- follows with Dr mccarthy.
- next cycle 12/27. will adjust as needed.
will continue to follow
Patient History
History of Present Illness
- stage IV pancreatic adenocarcinoma
- lung metastases
- ovarian metastasis s/p resection
Past-Medical/Surgical History
Mariah is a 74-year-old female with hx of localized pancreatic cancer s/p neoadjuvant chemotherapy followed by whipple procedure with recurrence involving ovary, lungs not on Enhertu for HER2+ disease ( last 12/06) who presented to ER complaining of
severe abdominal pain that started during the night with associated vomiting. Her last bowel movement was last night. CT A/P showed several mildly dilated, fluid-filled small bowel loops within the pelvis with questionable transitional point in the
area of the terminal ileum, suspicious for small bowel obstruction. No pneumatosis. New small amount of pelvic ascites. Small amount of perihepatic and perisplenic fluid. NGT placed to suction. She notes improvement in pain however still with
nausea. Of note, she recently had restaging CT CAP 11/27 that showed positive response with decrease size of several lung lesions, stable lesion anterior to left hepatic lobe, no new disease.
Patient Medication
�Medication �Instructions �Recorded �Confirmed �Last Taken �Type
ascorbic acid (vitamin C) 500 mg 500 mg PO DAILY Supplement 05/01/21 12/22/24 12/21/24 History
capsule
multivitamin-ferrous 1 ea PO DAILY Supplement 05/01/21 12/22/24 12/21/24 History
fumarate-folic acid 18 mg-400 mcg
tablet (Centrum)
lansoprazole 30 mg capsule,delayed 30 mg PO DAILY Gastrointestinal 12/10/22 12/22/24 12/21/24 History
release Issue
ciccml-rvmqcyim-epnlyvq 1 cap PO TID Gastrointestinal Issue 05/11/24 12/22/24 12/21/24 History
24,000-76,000-120,000 unit
capsule,delayed rel (Creon)
denosumab 60 mg/mL subcutaneous 60 mg SC [id number] Anti-Inflammatory 09/28/24 12/22/24 08/16/24 History
syringe (Prolia)
gabapentin 300 mg capsule 300 mg PO BID Neurological 09/28/24 12/22/24 12/21/24 History
Condition
polyethylene glycol 3350 17 17 g PO DAILY Gastrointestinal 09/28/24 12/22/24 12/21/24 History
gram/dose oral powder (Miralax) Issue
ibuprofen 200 mg tablet (Advil) 600 mg PO DAILYPRN PRN MILD PAIN 12/22/24 12/22/24 12/21/24 History
lorazepam 0.5 mg tablet 0.5 mg PO HSPRN PRN SLEEP 12/22/24 12/22/24 Unknown History
Active Medications
Generic Name Dose Route Start Last Admin
Trade Name Freq PRN Reason Stop Dose Admin
Heparin Sodium 5,000 units 12/22/24 16:00 12/23/24 08:30
Heparin 5,000 Units/Ml 1 Ml Vial SC 01/19/25 15:59 5,000 units
Q8 GEOFF Administration
Hydromorphone HCl 0.5 mg 12/22/24 18:46 12/23/24 08:27
Hydromorphone 0.5 Mg/0.5 Ml Syringe IV 01/05/25 18:45 0.5 mg
Q3HPRN PRN Administration
severe pain
Acetaminophen 1,000 mg in 100 mls @ 400 mls/hr 12/23/24 09:46
Ofirmev IV 12/25/24 09:45
Q6HPRN PRN
mild pain
Protocol
Lactated Ringer's 1,000 mls @ 80 mls/hr 12/23/24 14:00
Lr IV 12/24/24 14:59
.[id number] GEOFF
Ketorolac Tromethamine 10 mg 12/23/24 09:46
Ketorolac 15 Mg/Ml Injection IV
Q6HPRN PRN
moderate pain
Ondansetron HCl 4 mg 12/22/24 14:05 12/23/24 08:32
Ondansetron 4 Mg/2 Ml Vial IV 01/19/25 14:04 4 mg
Q6HPRN PRN Administration
NAUSEA/VOMITING
Pantoprazole Sodium 40 mg 12/24/24 08:00
Pantoprazole Sodium 40 Mg/10 Ml Vial IV 01/21/25 07:59
DAILY GEOFF
Prochlorperazine Edisylate 10 mg 12/23/24 13:02 12/23/24 13:12
Prochlorperazine 10 Mg/2 Ml Vial IV 01/20/25 13:01 10 mg
Q6HPRN PRN Administration
nausea
Sodium Chloride 0 flush 12/22/24 15:00
Sodium Chloride 0.9% (Flush) Syringe IV 01/19/25 14:59
PER PROTOCOL GEOFF
Review of Systems
-
History Source: Patient
Constitutional: Reports Fatigue; Denies Fever
Respiratory: Denies Trouble Breathing
GI: Reports Abdominal Pain, Nausea and Constipated; Denies Vomiting or Hemetemesis
Physical Exam
-
General: No Apparent Distress and Cachetic
HEENT: Other (NGT to suction ); Negative Jaundice
Cardiology: Normal Sinus Rhythm
Pulmonary: Clear
GI: Soft and Distended; Negative Normal Bowel Sounds (decreased BS)
Musculoskeletal: No Edema
Extremities: Negative Edema
Neurology: Non Focal and No Lateralizing Symptoms
Psych: Calm
Labs
Lab Results
WBC 3.1 10^3/uL (4.8-10.8) L 12/23/24 04:54
RBC 3.80 10^6/uL (4.20-5.40) L 12/23/24 04:54
Hgb 10.0 g/dL (12.0-16.0) L 12/23/24 04:54
Hct 30.4 % (37.0-47.0) L 12/23/24 04:54
MCV 80.0 fL (81.0-99.0) L 12/23/24 04:54
MCH 26.3 pg (27.0-31.0) L 12/23/24 04:54
MCHC 32.9 g/dL (33.0-37.0) L 12/23/24 04:54
RDW 16.5 % (11.5-14.5) H 12/23/24 04:54
Plt Count 294 10^3/uL (130-400) 12/23/24 04:54
MPV 8.9 fL (7.4-10.4) 12/23/24 04:54
Abs Immat Gran (auto) 0.0 10^3/uL (0-0.05) 12/23/24 04:54
Absolute Neuts (auto) 2.3 10^3/uL (1.4-6.5) 12/23/24 04:54
Absolute Lymphs (auto) 0.3 10^3/uL (1.2-3.4) L 12/23/24 04:54
Absolute Monos (auto) 0.5 10^3/uL (0.1-0.6) 12/23/24 04:54
Absolute Eos (auto) 0.0 10^3/uL (0-0.7) 12/23/24 04:54
Absolute Basos (auto) 0.0 10^3/uL (0-0.2) 12/23/24 04:54
Immature Gran % 0.3 % (0-0.5) 12/23/24 04:54
Neutrophils % 73.0 % (42.2-75.2) 12/23/24 04:54
Lymphocytes % 10.6 % (20.5-51.1) L 12/23/24 04:54
Monocytes % 14.8 % (1.7-9.3) H 12/23/24 04:54
Eosinophils % 0.3 % (0-6) 12/23/24 04:54
Basophils % 1.0 % (0-2) 12/23/24 04:54
Creatinine 0.5 mg/dL (0.6-1.0) L 12/23/24 04:54
Vital Signs
Vital Signs
Temp Pulse Resp BP Pulse Ox
99.1 F 72 17 131/68 94
12/23/24 07:00 12/23/24 07:00 12/23/24 07:00 12/23/24 07:00 12/23/24 07:00
[2024-12-23 23:00] VITALS: BP 147/86
[2024-12-24] MEDS: LR 1000 IV ×2 (03:05→18:11)
[2024-12-24 07:15] VITALS: BP 142/89
[2024-12-24 08:14] LABS: Hematocrit 31.4 % (37.0-47.0); Hemoglobin 10.1 g/dL (12.0-16.0); Mean Corp Hgb Conc. 32.2 g/dL (33.0-37.0); Mean Corpuscular Hgb 26.4 pg (27.0-31.0); Mean Platelet Volume 8.8 fL (7.4-10.4); Platelet Count 315 10^3/uL (130-400); Red Blood Cell Count 3.83 10^6/uL (4.20-5.40); Red Cell Dist. Width 16.6 % (11.5-14.5); White Blood Cell Count 3.4 10^3/uL (4.8-10.8)
[2024-12-24 08:45] LABS: Blood Urea Nitrogen 18 mg/dl (7-17); Calcium 8.3 mg/dl (8.4-10.2); Carbon Dioxide 27 mmol/L (22-30); Chloride 103 mmol/L (98-107); Estimated Creatinine Clearance 57 ml/min; Glucose 97 mg/dl (70-99); Potassium 3.7 mmol/L (3.5-5.1); Sodium 136 mmol/L (135-145); eGFR > 60.00
--- NOTE | 2024-12-24 09:27 | W.PN.GS2 ---
Addendum entered and electronically signed by Harry Allen MD 12/24/24 13:40:
Patient seen and examined.
Feels improved - less pain. No flatus or BM. No nausea or vomiting. Afebrile.
Gen: NAD
Abd: soft, tender to palpation, distended, tympanitic, non-peritoneal, prior incisions well healed
Patient is a 74 yo F p/w SBO secondary to adhesions or malignancy in the setting a h/o metastatic pancreatic cancer tx with chemo then Whipple in 2021, DELMAR/BSO for mets in 2023 and VATS for pulm mets early this year with port placement and
resumption of chemotherapy this spring (LD 12/06)
CT (12/22) with SBO with likely transition in RLQ, limited by lack of PO contrast
AFVSS
Leukopenia noted, labs otherwise stable
Clinically patient feels improved, however no bowel movements or flatus and continued distention. Plan for SBFT later today.
--SBFT
--NPO, NGT to LIWS
--IVF
--Pain control: Ofirmev and Toradol prn
--DVT: SQH
--GI: PPI
Original Note:
Today's Communication / Plan
-
SBFT
NPO/NGT
Assessment / Plan
-
74 yo female with a h/o metastatic pancreatic cancer tx with chemo then Whipple in 2021, delmar/bso for mets in 2023 and VATS for pulm mets early this year with port placement and resumption of chemotherapy this spring (LD 12/06) presenting with SBO
likely adhesions versus malignancy, CT limited by lack of PO contrast
AFVSS
Leukopenia noted, labs otherwise stable
NGT placed on 12/23 given N/V
--Continue NGT to LIWS
--Check SBFT (discussed with radiology, will hopefully be able to do this today)
--Continue antiemetics/analgesics
--NPO with ice chips for comfort/IVF
--VTE ppx with heparin sq
Subjective Data
-
Date of Service: December 24, 2024
Patient seen and examined at bedside with Dr. Allen. No further nausea/vomiting since NGT placed. Pain still present and stable. No passage of flatus or stools.
Objective Data
-
Intake and Output
12/23/24 12/24/24 12/25/24
06:59 06:59 06:59
Intake Total 0 / 0
Output Total 1350 / 1350
Balance 0 / 0 -1350 / -1350
Intake:
Oral fluids 0 / 0
Output:
Gastrointestinal tube output ( 1350 / 1350
Total)
[place] Sump 1350 / 1350
Other:
Number of approximated MODERATE 1 1
amounts of urine
Number of approximated LARGE 3
amounts of urine
Vital Signs
Temp Pulse Resp BP Pulse Ox
98.5 F 95 18 142/89 94
12/24/24 07:15 12/24/24 07:15 12/24/24 07:15 12/24/24 07:15 12/24/24 07:15
Lab Results
12/24/24 07:54
12/24/24 07:54
Calcium 8.3 mg/dl (8.4-10.2) L 12/24/24 07:54
Total Bilirubin 0.3 mg/dl (0.2-1.3) 12/22/24 08:09
AST 20 U/L (14-36) 12/22/24 08:09
ALT 18 U/L (0-35) 12/22/24 08:09
Alkaline Phosphatase 65 U/L (38-126) 12/22/24 08:09
Total Protein 6.7 g/dl (6.3-8.2) 12/22/24 08:09
Albumin 4.3 g/dl (3.5-5.0) 12/22/24 08:09
Physical Exam
-
NAD
ABD, softly distended, tenderness to lower abd l>r
Patient has a gauthier catheter: No
Patient has a central line: Yes (port)
[2024-12-24] MEDS: PROTONIX IV 40 MG IV (09:41)
[2024-12-24] MEDS: HEPARIN 5000 UNITS SC ×3 (09:42→23:09)
--- NOTE | 2024-12-24 11:25 | W.PN.HOSP.TC ---
Today's Communication/Plan
-
Continue IV fluids
Small bowel follow-through x-ray
Assessment / Plan
Assessment / Plan
Gen-AAOx3, NAD
HEENT-NC, AT, anicteric, clear oral mm
Neck-supple
CV-reg, no M, +S1/S2
Lungs-clear B/L
Abd-soft, NT, ND
Ext-no edema
Musculoskeletal-no cyanosis, clubbing
Skin-warm and dry
Neuro-grossly non-focal
Psych-calm, cooperative
Small bowel obstruction - CT scan demonstrates several mildly dilated fluid-filled small bowel loops within the pelvis with questionable transition point in the area of the terminal ileum.
NG tube placed 12/23. Waiting for return of bowel function. Continue IV fluids, antiemetics. General surgery service following.
This is her first episode of SBO. Suspect related to adhesions from prior abdominal surgery.
Await small bowel follow-through x-ray.
Metastatic pancreatic cancer -on chemotherapy. Followed by Dr. Hall. Has a port in place.
Hypovolemic hyponatremia -sodium improved.
Rheumatoid arthritis -not on active treatment.
Chronic inflammatory anemia -hemoglobin stable.
Leukopenia -unclear etiology. Monitor for now.
Full code
updated at the bedside.
Anticipated Discharge: > 48 hours
Subjective/Interval History
-
Date of Service: December 24, 2024
Patient seen and examined. Still not passing gas or bowels. Pain controlled.
Objective Data
-
Labs:
Laboratory Results
12/24/24
07:54
WBC 3.4 L
Hgb 10.1 L
Hct 31.4 L
Plt Count 315
Sodium 136
Potassium 3.7
Chloride 103
Carbon Dioxide 27
BUN 18 H
Creatinine 0.5 L
Glucose 97
Calcium 8.3 L
Vital Signs:
Vital Signs
Temp Pulse Resp BP Pulse Ox
98.5 F 95 18 142/89 94
12/24/24 07:15 12/24/24 07:15 12/24/24 07:15 12/24/24 07:15 12/24/24 07:15
I&O
12/23/24 12/24/24 12/25/24
06:59 06:59 06:59
Intake Total 0 / 0
Output Total 1350 / 1350
Balance 0 / 0 -1350 / -1350
Review of Systems
-
History Source: Patient
All other systems: Reviewed and negative
--- NOTE | 2024-12-24 12:07 | W.PN.ONC2 ---
Today's Communication / Plan
-
- NGT to suction, slow improvement in symptoms.
- apprec surgery recs.
Impression
Impression
- Small bowel obstruction
- stage IV pancreatic cancer
Plan
Plan
# SBO
- presenting with acute onset abdominal pain, n/v. imaging suspicious for small bowel obstruction with transition point at terminal ileum. no obvious metastatic disease in this region. high risk for adhesions with multiple prior bowel surgeries.
- surgery following, no plan for surgery at this time. NGT placed with improvement in symptoms. apprec recs.
- repeat CA19-9 pending, last prior to starting this tx in sep was 76. Unclear if bowel obstruction will impact reliability of this study.
# Stage IV pancreatic cancer
- recurrence after whipple with ovarian lesion sp resection, lung lesions and possible peritoneal lesion near liver.
- on Enhertu since sep with HER2 expression 3+. recent restaging CT showed positive response with decrease of several lung lesions. no new disease. CT AP on this admission without obvious new disease, new pelvic ascites in setting of obstruction.
- follows with Dr mccarthy.
- next cycle 12/27. will adjust as needed.
will continue to follow
Subjective/Objective
Chief Complaint
SBO
Subjective
pt still with NGT to suction, pain still present but stable. She still has not had BM but feels bowel sounds picking up.
Vital Signs:
Vital Signs
Temp Pulse Resp BP Pulse Ox
98.5 F 95 18 142/89 94
12/24/24 07:15 12/24/24 07:15 12/24/24 07:15 12/24/24 07:15 12/24/24 07:15
Lab Results:
Laboratory Data
WBC 3.4 10^3/uL (4.8-10.8) L 12/24/24 07:54
Hgb 10.1 g/dL (12.0-16.0) L 12/24/24 07:54
Plt Count 315 10^3/uL (130-400) 12/24/24 07:54
eGFR > 60.00 12/24/24 07:54
Physical Exam
HEENT: Other (cachectic ); No Jaundice
Cardiology: Normal Sinus Rhythm
Pulmonary: Clear
GI: Distended and Other (tender to palpation in lower quadrants. ); No Normal Bowel Sounds (decreased)
Extremities: No Edema
Neuro: Non Focal
Review of Systems
Review of Systems
Constitutional: Denies Fever
Gastrointestinal: Reports Other (obstipation, abdominal distention ); Denies Nausea/Vomiting
[2024-12-24] MEDS: DILAUDID 0.5 MG IV (12:29)
[2024-12-24 17:29] VITALS: BP 128/84
[2024-12-24 18:45] LABS: CA 19-9 46 U/mL (<=35)
[2024-12-24 23:47] VITALS: BP 155/95
[2024-12-25] MEDS: TORADOL 10 MG IV (04:25)
[2024-12-25] MEDS: ZOFRAN 4 MG IV ×2 (04:25→16:36)
[2024-12-25 06:30] LABS: Mean Corp Hgb Conc. 32.3 g/dL (33.0-37.0); Mean Corpuscular Hgb 26.1 pg (27.0-31.0); Mean Corpuscular Volume 80.9 fL (81.0-99.0); Mean Platelet Volume 8.8 fL (7.4-10.4); Platelet Count 352 10^3/uL (130-400); Red Blood Cell Count 3.83 10^6/uL (4.20-5.40); Red Cell Dist. Width 16.9 % (11.5-14.5); White Blood Cell Count 4.5 10^3/uL (4.8-10.8)
[2024-12-25 06:47] LABS: Blood Urea Nitrogen 26 mg/dl (7-17); Calcium 8.8 mg/dl (8.4-10.2); Carbon Dioxide 31 mmol/L (22-30); Chloride 103 mmol/L (98-107); Estimated Creatinine Clearance 57 ml/min; Glucose 105 mg/dl (70-99); Potassium 3.6 mmol/L (3.5-5.1); Sodium 140 mmol/L (135-145); eGFR > 60.00
[2024-12-25 07:45] VITALS: BP 148/79
--- NOTE | 2024-12-25 10:07 | W.PN.ONC2 ---
Today's Communication / Plan
-
Continue NGT
Impression
Impression
74-year-old female with past medical history of stage IV pancreatic cancer presenting to [facility] for small bowel obstruction.
Plan
Plan
� Continue NGT for suction.
� No plan for surgery, surgical team following.
� CA 19-9 on 12/23 was 46. Down from 76 in September.
� Currently on Enhertu since sep with HER2 expression 3+. recent restaging CT showed positive response with decrease of several lung lesions. no new disease. CT AP on this admission without obvious new disease, new pelvic ascites in setting of
obstruction. Follows with Dr. Hall. Neck cycle will begin 12/27
� All other medical care per primary team
Subjective/Objective
Subjective
Patient has no acute complaints overnight. She states that she is feeling 'okay' and less anxious. She states she has no headaches, nausea, vomiting, chest pain, shortness of breath, abdominal pain or numbness and tingling in extremities. She
currently has an NG tube placed.
Vital Signs:
Vital Signs
Temp Pulse Resp BP Pulse Ox
97.9 F 90 17 148/79 94
12/25/24 07:45 12/25/24 07:45 12/25/24 07:45 12/25/24 07:45 12/25/24 07:45
Lab Results:
Laboratory Data
WBC 4.5 10^3/uL (4.8-10.8) L 12/25/24 06:12
Hgb 10.0 g/dL (12.0-16.0) L 12/25/24 06:12
Plt Count 352 10^3/uL (130-400) 12/25/24 06:12
eGFR > 60.00 12/25/24 06:11
Physical Exam
General: Alert and orientedx3, conversant, resting comfortably in bed
GI: Soft
Extremities: No C/C/E
Review of Systems
Review of Systems
All reviewed and negative unless otherwise stated
Psychiatric: Reports Other (Mild anxiety)
[2024-12-25] MEDS: LR 1000 IV (10:28)
[2024-12-25] MEDS: HEPARIN 5000 UNITS SC ×3 (10:29→23:20)
[2024-12-25] MEDS: PROTONIX IV 40 MG IV (10:30)
[2024-12-25] MEDS: DILAUDID 0.5 MG IV ×3 (10:32→23:20)
--- NOTE | 2024-12-25 10:44 | W.PN.GS2 ---
Today's Communication / Plan
-
OR for diagnostic laparoscopy, lysis of adhesions possible open, possible small bowel resection versus loop ileostomy versus venting PEG.
Assessment / Plan
-
74 yo female with a h/o metastatic pancreatic cancer tx with chemo then Whipple in 2021, ko/bso for mets in 2023 and VATS for pulm mets early this year with port placement and resumption of chemotherapy this spring (LD 12/06) presenting with SBO
likely adhesions versus malignancy, CT limited by lack of PO contrast but follow-up small bowel follow-through and plain films demonstrated persistent obstruction.
Given overall picture while this could be simply adhesive disease, I am concerned for a malignant small bowel obstruction.
Will plan to move forward with surgery. Potentially today, though most likely tomorrow given OR availability.
We discussed the surgical approach and options pending her intraoperative findings. Briefly we will plan to start laparoscopically though given her bowel distention and prior surgery it is highly likely that we will have to convert to an open
procedure. If her adhesions are minimal we will plan to simply perform a lysis however I did explain sometimes there is significant amount of bowel involvement which may preclude adhesiolysis and given her recent chemotherapy a bypass
(enteroenterostomy) is not always feasible. We may perform loop ileostomy if there is sufficient amount of bowel upstream to warrant this. This would allow her to resume oral intake and she is okay with this if there is no other option.
Will plan for a diagnostic laparoscopy, possible diverting loop ileostomy. Tentatively added on for today, though anticipate this case going tomorrow.
Stoma consult for marking
Antibiotics on-call to the OR.
Continue NG tube to low intermittent wall suction, okay for sips and chips as needed for comfort.
DVT prophylaxis.
Up and out of bed, ambulate as able.
Risks/Benefits/Alternatives, expected postoperative course and possible complications (bleeding, infection, injury to surrounding structures, acute/chronic pain) discussed at length. Patient wishes to proceed with surgery. All questions answered.
Consent obtained.
I spent 60 minutes in total for the care of this patient today including direct patient care and counseling, reviewing labs, imaging, coordination of care, as well as documentation.
Time Spent
Total Time Spent with Patient (in minutes): 20
Subjective Data
-
Date of Service: December 25, 2024
Interval Events:
No acute events overnight. Slept ok. Pain Controlled. Denies Nausea/Vomiting, -bowel function. Repeat x-ray today demonstrates persistent small bowel obstruction, high-grade with a likely transition point in the pelvis
Objective Data
-
Intake and Output
12/24/24 12/25/24 12/26/24
06:59 06:59 06:59
Intake Total 960 / 960
Output Total 1350 / 1350 850 / 850
Balance -1350 / -1350 110 / 110
Intake:
IV fluids (Total) 960 / 960
Output:
Gastrointestinal tube output ( 1350 / 1350 850 / 850
Total)
Gastrostomy 850 / 850
[place] Sump 1350 / 1350
Other:
Number of approximated MODERATE 1
amounts of urine
Number of approximated LARGE 3
amounts of urine
Vital Signs
Temp Pulse Resp BP Pulse Ox
97.9 F 90 17 148/79 94
12/25/24 07:45 12/25/24 07:45 12/25/24 07:45 12/25/24 07:45 12/25/24 07:45
Lab Results
12/25/24 06:12
12/25/24 06:11
Calcium 8.8 mg/dl (8.4-10.2) 12/25/24 06:11
Total Bilirubin 0.3 mg/dl (0.2-1.3) 12/22/24 08:09
AST 20 U/L (14-36) 12/22/24 08:09
ALT 18 U/L (0-35) 12/22/24 08:09
Alkaline Phosphatase 65 U/L (38-126) 12/22/24 08:09
Total Protein 6.7 g/dl (6.3-8.2) 12/22/24 08:09
Albumin 4.3 g/dl (3.5-5.0) 12/22/24 08:09
Physical Exam
-
GENERAL/NEURO: Awake, Alert, no distress, thin
CHEST: Unlabored breathing on RA
ABDOMEN: Soft, Non-Tender, distended. NG tube to low intermittent wall suction with bilious output.
Patient has a gauthier catheter: No
Patient has a central line: Yes (Has a port)
--- NOTE | 2024-12-25 12:42 | WOUNDNOTE ---
[facility] RN note: Patient stoma marked LLQ and RLQ (less scars/skin creases in LLQ) for possible ileostomy today. RLQ stoma yulisa 6.2cm to R of midline and 3.5cm distal to umbilical line. LLQ stoma yulisa 6.5cm to L of midline and 3.2cm distal to the
umbilical line. Stoma marked patient in lying, sitting and standing positions. Stoma marked over the rectus muscle avoiding scars/skin creases. Patient instructed surgeon makes the final decision with stoma placement. [place] texted Evy Cagle,
general surgical RESOURCE FORESTER re: stoma marked LLQ and RLQ incase the LLQ can be used d/t less scars on LLQ. Patient lives with her . Sacral and heel skin intact.
[2024-12-25 13:03] VITALS: BMI 17.7
--- NOTE | 2024-12-25 13:06 | W.PN.HOSP.TC ---
Today's Communication/Plan
-
Maintain NGT to low wall suction
Strict n.p.o.
OR either today or early tomorrow for exploratory laparoscopy
Assessment / Plan
Assessment / Plan
#Small bowel obstruction -likely related to adhesive disease versus malignant obstruction. CT scan demonstrates several mildly dilated fluid-filled small bowel loops within the pelvis with questionable transition point in the area of the terminal
ileum. NG tube placed 12/23. Waiting for return of bowel function though small bowel follow-through on 12/24 with persistent obstruction. Continue IV fluids, antiemetics. General surgery service following, recommending exploratory laparoscopy
either this afternoon or tomorrow. Maintain NGT to low wall suction pending OR
#Metastatic pancreatic cancer -on chemotherapy. Followed by Dr. Hall. Has a port in place.
#Hypovolemic hyponatremia -sodium improved.
#Rheumatoid arthritis -not on active treatment.
#Chronic inflammatory anemia -hemoglobin stable.
#Leukopenia -unclear etiology. Monitor for now.
N.p.o.
SQ heparin
Full code
Anticipated Discharge: > 48 hours
Subjective/Interval History
-
Date of Service: December 25, 2024
Seen and examined at the bedside. No acute events reported overnight. AFVSS this morning
NGT remains in place. 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
Patient denies any complaints, states she feels better knowing what the plan is
Objective Data
-
Labs:
Laboratory Results
12/25/24 12/25/24
06:11 06:12
WBC 4.5 L
Hgb 10.0 L
Hct 31.0 L
Plt Count 352
Sodium 140
Potassium 3.6
Chloride 103
Carbon Dioxide 31 H
BUN 26 H
Creatinine 0.6
Glucose 105 H
Calcium 8.8
Vital Signs:
Vital Signs
Temp Pulse Resp BP Pulse Ox
97.9 F 90 17 148/79 94
12/25/24 07:45 12/25/24 07:45 12/25/24 07:45 12/25/24 07:45 12/25/24 07:45
I&O
12/24/24 12/25/24 12/26/24
06:59 06:59 06:59
Intake Total 960 / 960
Output Total 1350 / 1350 850 / 850
Balance -1350 / -1350 110 / 110
Review of Systems
-
History Source: Patient
All other systems: Reviewed and negative
Physical Exam
-
General: Well Developed, No Apparent Distress, Appears Chronically Ill and Cachectic
HEENT: Normocephalic, Atraumatic, Moist Mucous Membranes, Anicteric and Other (NGT in place)
Respiratory: Clear to Auscultation and Non Labored Respirations
Cardiac: Regular Rhythm and S1/S2; Negative Murmur, Rub or Gallop
GI: Soft, Nondistended, Normal Bowel Sounds and Tender
Musculoskeletal: No Clubbing, No Cyanosis and No Edema
Skin: Warm, Dry and Normal Turgor; Negative Rash
Neuro: AO x 3 and Nonfocal/Grossly Intact
Psych: Calm
Data Reviewed
-
Labs: Labs Reviewed by me, Discussed with Physician (Surgery) and Discussed with Patient
[2024-12-25 15:32] VITALS: BP 151/79
[2024-12-25 23:00] VITALS: BP 138/80
[2024-12-26] VITALS (10 sets, daily range): BP systolic 118–152; BP diastolic 61–80
[2024-12-26 05:25] LABS: % Basophils 0.2 % (0-2); % Eosinophils 0.2 % (0-6); % Immature Granulocytes 0.5 % (0-0.5); % Lymphocytes 8.5 % (20.5-51.1); % Monocytes 13.9 % (1.7-9.3); % Neutrophils 76.7 % (42.2-75.2); Absolute Lymphocytes 0.3 10^3/uL (1.2-3.4); Absolute Monocytes 0.6 10^3/uL (0.1-0.6); Absolute Neutrophils 3.1 10^3/uL (1.4-6.5); Hematocrit 31.5 % (37.0-47.0); Hemoglobin 9.7 g/dL (12.0-16.0); Mean Corp Hgb Conc. 30.8 g/dL (33.0-37.0); Mean Corpuscular Hgb 25.9 pg (27.0-31.0); Nucleated Red Blood Cells % 0 %; Platelet Count 376 10^3/uL (130-400); Red Blood Cell Count 3.75 10^6/uL (4.20-5.40); Red Cell Dist. Width 17.1 % (11.5-14.5)
[2024-12-26 05:43] LABS: Blood Urea Nitrogen 25 mg/dl (7-17); Calcium 8.4 mg/dl (8.4-10.2); Carbon Dioxide 28 mmol/L (22-30); Chloride 106 mmol/L (98-107); Estimated Creatinine Clearance 57 ml/min; Glucose 101 mg/dl (70-99); Potassium 3.5 mmol/L (3.5-5.1); Sodium 142 mmol/L (135-145); eGFR > 60.00
[2024-12-26] MEDS: PROTONIX IV 40 MG IV (09:06)
[2024-12-26] MEDS: HEPARIN SC ×2 (09:09→14:36)
--- NOTE | 2024-12-26 09:32 | W.PN.ONC2 ---
Today's Communication / Plan
-
Diagnostic lap today
Impression
Impression
74-year-old female with past medical history of stage IV pancreatic cancer presenting to [place] for small bowel obstruction.
Plan
Plan
� Continue NGT for suction.
� Diagnostic laparoscopy, lysis of adhesions, possible small bowel resection versus loop ileostomy versus venting PEG
� Currently on Enhertu since sep with HER2 expression 3+. recent restaging CT showed positive response with decrease of several lung lesions. no new disease. CT AP on this admission without obvious new disease, new pelvic ascites in setting of
obstruction. Follows with Dr. Hall. Will have to reschedule next cycle
� All other medical care per primary team
Subjective/Objective
Subjective
74-year-old female with past medical history of stage IV pancreatic cancer presenting to [place] for small bowel obstruction.
Vital Signs:
Vital Signs
Temp Pulse Resp BP Pulse Ox
98.0 F 79 18 152/79 96
12/26/24 07:30 12/26/24 07:30 12/26/24 07:30 12/26/24 07:30 12/26/24 07:30
Lab Results:
Laboratory Data
WBC 4.0 10^3/uL (4.8-10.8) L 12/26/24 05:06
Hgb 9.7 g/dL (12.0-16.0) L 12/26/24 05:06
Plt Count 376 10^3/uL (130-400) 12/26/24 05:06
eGFR > 60.00 12/26/24 05:06
--- NOTE | 2024-12-26 10:42 | W.PN.GS2 ---
Today's Communication / Plan
-
-- Diagnostic laparoscopy, laparoscopic possible open lysis of adhesions, possible bowel resection, possible diverting ileostomy, possible gastrostomy tube
-- NPO, IVF, NGT decompression
-- [employer] server to OR
Assessment / Plan
-
74 yo female p/w SBO likely adhesions versus malignancy,
H/o metastatic pancreatic cancer tx with chemo then [facility] in 2021, DELMAR/BSO for mets in 2023 and VATS for pulm mets early this year with port placement and resumption of chemotherapy this spring (LD 12/06)
CT limited by lack of PO contrast but follow-up small bowel follow-through and plain films demonstrated persistent obstruction.
AVSS
Labs notable for leukopenia, normal ANC
NGT with 700 cc output
In-depth discussion with patient regarding options for management especially in light of her clinical improvement over the past 24 hours. Specifically we reviewed options for continued medical management with NGT decompression versus surgical
management. Unclear exactly what her surgical intervention will entail; this is largely dependent on the degree of adhesions and ultimate cause of her obstruction (adhesive versus malignancy related). We discussed the pros and cons of both
approaches including avoiding surgical risks of bowel injury wound complications, and life with an ileostomy or gastrostomy tube versus medical management risks of persistent obstruction with delays in care and recurrent symptoms. Ms. Mercado would
like to proceed with surgical management.
Plan for a diagnostic laparoscopy, laparoscopic possible open lysis of adhesions, possible bowel resection, possible diverting ileostomy, possible gastrostomy tube. The procedure itself, as well as the risks, benefits, and alternatives was
discussed. Specifically, we discussed the risks of bleeding, infection, injury to surrounding structures (bowel, bladder), wound complications, anastomotic and ileostomy and G-tube complications, hernia formation, recurrence of symptoms and general
anesthetic complications. Typical postprocedural recovery including need for continued hospitalization, potential delays in bowel recovery, pain control and activity limitations were discussed. We specifically discussed nutrition issues and the
potential need for TPN. All questions answered. Consent signed.
-- Diagnostic laparoscopy, laparoscopic possible open lysis of adhesions, possible bowel resection, possible diverting ileostomy, possible gastrostomy tube
-- NPO, IVF, NGT decompression
-- [employer] server to OR
Subjective Data
-
Date of Service: December 26, 2024
Feels improved, past some flatus and small amounts of stool. No nausea or vomiting. Continues to have some abdominal distention and crampy abdominal discomfort. No fevers.
Objective Data
-
Intake and Output
12/25/24 12/26/24 12/27/24
06:59 06:59 06:59
Intake Total 960 / 960 300 / 300
Output Total 850 / 850 700 / 700
Balance 110 / 110 -400 / -400
Intake:
Oral fluids 240 / 240
IV fluids (Total) 960 / 960
Amount instilled into GI Tube ( 60 / 60
Total)
[place] Sump 60 / 60
Output:
Gastrointestinal tube output ( 850 / 850 700 / 700
Total)
Gastrostomy 850 / 850
[place] Sump 700 / 700
Other:
Number of approximated MODERATE 2
amounts of urine
Number of approximated LARGE 2
amounts of urine
Vital Signs
Temp Pulse Resp BP Pulse Ox
98.0 F 79 18 152/79 96
12/26/24 07:30 12/26/24 07:30 12/26/24 07:30 12/26/24 07:30 12/26/24 07:30
Lab Results
12/26/24 05:06
12/26/24 05:06
Calcium 8.4 mg/dl (8.4-10.2) 12/26/24 05:06
Total Bilirubin 0.3 mg/dl (0.2-1.3) 12/22/24 08:09
AST 20 U/L (14-36) 12/22/24 08:09
ALT 18 U/L (0-35) 12/22/24 08:09
Alkaline Phosphatase 65 U/L (38-126) 12/22/24 08:09
Total Protein 6.7 g/dl (6.3-8.2) 12/22/24 08:09
Albumin 4.3 g/dl (3.5-5.0) 12/22/24 08:09
Physical Exam
-
Gen: NAD
HEENT: NGT with non-bilious output
Abd: soft, mild tenderness, mild/moderate distension, non-peritoneal, prior incisions well healed
Patient has a gauthier catheter: No
Patient has a central line: No
[2024-12-26] MEDS: LR 1000 IV ×2 (13:13)
--- NOTE | 2024-12-26 15:08 | W.PN.HOSP.TC ---
Today's Communication/Plan
-
ex lap today
Assessment / Plan
Assessment / Plan
#Small bowel obstruction -likely related to adhesive disease versus malignant obstruction. CT scan demonstrates several mildly dilated fluid-filled small bowel loops within the pelvis with questionable transition point in the area of the terminal
ileum. NG tube placed 12/23. Waiting for return of bowel function though small bowel follow-through on 12/24 with persistent obstruction. Continue IV fluids, antiemetics. General surgery service following, recommending exploratory laparoscopy
today. Maintain NGT to low wall suction pending OR
#Metastatic pancreatic cancer -on chemotherapy. Followed by Dr. Hall. Has a port in place.
#Hypovolemic hyponatremia -sodium improved.
#Rheumatoid arthritis -not on active treatment.
#Chronic inflammatory anemia -hemoglobin stable.
#pancytopenia - likely 2/2 to malignancy/chemo
N.p.o.
SQ heparin
Full code
Total time spent on today's encounter was 50 minutes which included time spent in counseling the patient/family regarding diagnosis and treatment plan as listed above, goals of care, and symptom management. Case was discussed with nursing staff,
specialists, and care coordinators/case management. All labs and imaging personally reviewed by me. Remainder the time spent in detailed review of previous records, lab data, imaging, and other medical provider documentation.
Anticipated Discharge: > 48 hours
Subjective/Interval History
-
Date of Service: December 26, 2024
Had bowel movement this morning
Objective Data
-
Labs:
Laboratory Results
12/26/24
05:06
WBC 4.0 L
Hgb 9.7 L
Hct 31.5 L
Plt Count 376
Sodium 142
Potassium 3.5
Chloride 106
Carbon Dioxide 28
BUN 25 H
Creatinine 0.6
Glucose 101 H
Calcium 8.4
Vital Signs:
Vital Signs
Temp Pulse Resp BP Pulse Ox
98.0 F 79 18 152/79 96
12/26/24 07:30 12/26/24 07:30 12/26/24 07:30 12/26/24 07:30 12/26/24 07:30
I&O
12/25/24 12/26/24 12/27/24
06:59 06:59 06:59
Intake Total 960 / 960 300 / 300
Output Total 850 / 850 700 / 700
Balance 110 / 110 -400 / -400
Review of Systems
-
History Source: Patient
All other systems: Not reviewed unless documented
Physical Exam
-
General: Well Developed, No Apparent Distress, Appears Chronically Ill and Cachectic
HEENT: Normocephalic, Atraumatic, Moist Mucous Membranes, Anicteric and Other (NGT in place)
Respiratory: Clear to Auscultation and Non Labored Respirations
Cardiac: Regular Rhythm and S1/S2; Negative Murmur, Rub or Gallop
GI: Soft, Nondistended, Normal Bowel Sounds and Tender
Musculoskeletal: No Clubbing, No Cyanosis and No Edema
Skin: Warm, Dry and Normal Turgor; Negative Rash
Neuro: AO x 3 and Nonfocal/Grossly Intact
Psych: Calm
--- NOTE | 2024-12-26 15:09 | W.SUR.PREOP ---
Pre-Operative Surgical Note
-
I have examined this patient prior to the performance of the scheduled procedure.
The patient's condition is unchanged from the time of the current History and
Physical and the patient is able to undergo the scheduled procedure.
--- NOTE | 2024-12-26 17:26 | W.IMMPOSTOP ---
Surgical Immed Post Op Note
-
Primary Surgeon: Tiffany
Assisting Surgeon: FREEDOM Escobar
Pre-op Diagnosis: SBO
Post-op Diagnosis: SBO
Procedure Performed: Laparoscopic assisted small bowel resection, lysis of adhesions
Anesthesia Type: General
Specimen / Cultures:
1. Small bowel
Estimated Blood Loss: 3 cc
Complications: None
Operative Findings:
1. Dense band adhesion causing small bowel obstruction in the proximal ileum, lysis with bowel able to be run from proximal dilated to decompressed TI
2. Stricturing of small bowel at adhesive site --> small bowel resection with [id number] stapled anastomosis ([place])
3. Palpated widely patent, mesenteric window closed
[2024-12-26] MEDS: DILAUDID 0.5 MG IV (22:07)
[2024-12-27] MEDS: DILAUDID 0.5 MG IV ×6 (02:13→23:06)
[2024-12-27] MEDS: LR 1000 IV ×2 (04:27→16:50)
[2024-12-27 04:35] LABS: Hematocrit 27.7 % (37.0-47.0); Hemoglobin 8.6 g/dL (12.0-16.0); Mean Corpuscular Hgb 26.3 pg (27.0-31.0); Mean Corpuscular Volume 84.7 fL (81.0-99.0); Mean Platelet Volume 9.2 fL (7.4-10.4); Platelet Count 318 10^3/uL (130-400); Red Blood Cell Count 3.27 10^6/uL (4.20-5.40); Red Cell Dist. Width 17.2 % (11.5-14.5); White Blood Cell Count 3.7 10^3/uL (4.8-10.8)
[2024-12-27 05:02] LABS: ALT (SGPT) 11 U/L (0-35); AST (SGOT) 21 U/L (14-36); Albumin 3.2 g/dl (3.5-5.0); Alkaline Phosphatase 46 U/L (38-126); Blood Urea Nitrogen 14 mg/dl (7-17); Calcium 7.5 mg/dl (8.4-10.2); Carbon Dioxide 26 mmol/L (22-30); Chloride 108 mmol/L (98-107); Estimated Creatinine Clearance 57 ml/min; Glucose 109 mg/dl (70-99); Magnesium 2.1 mg/dl (1.6-2.3); Potassium 3.5 mmol/L (3.5-5.1); Sodium 141 mmol/L (135-145); Total Bilirubin 0.5 mg/dl (0.2-1.3); Total Protein 5.2 g/dl (6.3-8.2); eGFR > 60.00
--- NOTE | 2024-12-27 07:16 | W.PN.GS2 ---
Today's Communication / Plan
-
-- NPO, NGT, awaiting ROBF
Assessment / Plan
-
74 yo female p/w SBO secondary to adhesions
POD#1 s/p laparoscopic lysis of adhesions and SBR
AVSS
Labs with stable leukopenia, slight drift in Hb, normal renal function
Recovering well overall. Await return of bowel function prior to removing NGT given prolonged period of obstruction pre-op. May need to consider TPN if no ROBF in 24 hrs. Anemia likely due to operative blood loss from hemorrhagic ascites and
dilution, recheck ordered for this afternoon, may need to hold DVT ppx and Toradol if continued decline.
-- NPO, NGT
-- IVF, would start TPN tomorrow if no ROBF
-- Pain control: Tylenol IV, Toradol, IV Dilaudid PRN
-- OOB/ambulate
-- DVT: SQH
-- GI: Protonix
Subjective Data
-
Date of Service: December 27, 2024
No complaints. Abd feels improved, but sore. Admits to eating ice chips. No nausea or emesis. No flatus or BMs.
Objective Data
-
Intake and Output
12/26/24 12/27/24 12/28/24
06:59 06:59 06:59
Intake Total 300 / 300 400 / 880 480 / 480
Output Total 700 / 700 470 / 470
Balance -400 / -400 -70 / 410 480 / 480
Intake:
Oral fluids 240 / 240 480 / 480
IV fluids (Total) 340 / 340
Normosal 100 / 100
Amount instilled into GI Tube ( 60 / 60 60 / 60
Total)
[place] Sump 60 / 60 60 / 60
Output:
Gastrointestinal tube output ( 700 / 700 / 20
Total)
[place] Sump 700 / 700 20 / 20
Urine, Gauthier 200 / 200
Urine, Voided 250 / 250
Other:
Number of approximated SMALL 1
amounts of urine
Number of approximated MODERATE 2
amounts of urine
Number of approximated LARGE 2
amounts of urine
Vital Signs
Temp Pulse Resp BP Pulse Ox
97.4 F 75 14 140/76 99
12/26/24 23:00 12/26/24 23:00 12/26/24 23:00 12/26/24 23:00 12/26/24 23:00
Lab Results
12/27/24 03:59
12/27/24 03:59
Calcium 7.5 mg/dl (8.4-10.2) L 12/27/24 03:59
Magnesium 2.1 mg/dl (1.6-2.3) 12/27/24 03:59
Total Bilirubin 0.5 mg/dl (0.2-1.3) 12/27/24 03:59
AST 21 U/L (14-36) 12/27/24 03:59
ALT 11 U/L (0-35) 12/27/24 03:59
Alkaline Phosphatase 46 U/L (38-126) 12/27/24 03:59
Total Protein 5.2 g/dl (6.3-8.2) L 12/27/24 03:59
Albumin 3.2 g/dl (3.5-5.0) L 12/27/24 03:59
Physical Exam
-
Gen: NAD
HEENT: large volume clear output
Abd: soft, mild tenderness, mild distension, non-peritoneal, incisions c/d/i - no erythema, ecchymosis or drainage, midline dressing with some shadowing
Patient has a gauthier catheter: Yes
Patient has a central line: No
--- NOTE | 2024-12-27 07:33 | W.PN.ONC2 ---
Today's Communication / Plan
-
Postoperative care. Will push back neck cycle of chemotherapy approximately 3 weeks. Office has been notified.
Impression
Impression
Small bowel obstruction secondary to adhesions
stage IV pancreatic cancer
Plan
Plan
Surgical outcome noted. Status post small bowel resection with lysis of adhesions without evidence of intra-abdominal malignancy. Routine postoperative care.
Currently on Enhertu since sep with HER2 expression 3+. recent restaging CT showed positive response with decrease of several lung lesions. no new disease. CT AP on this admission without obvious new disease, new pelvic ascites in setting of
obstruction. Follows with Dr. Hall. Will have to reschedule next cycle. Office notified
� All other medical care per primary team
Subjective/Objective
Chief Complaint
ACS hematology oncology progress
Subjective
Surgical results noted. Appears to have benign adhesion related small bowel obstruction status post DON yesterday 12/26. Patient is very happy that no malignancy was identified.
Vital Signs:
Vital Signs
Temp Pulse Resp BP Pulse Ox
97.4 F 75 14 140/76 99
12/26/24 23:00 12/26/24 23:00 12/26/24 23:00 12/26/24 23:00 12/26/24 23:00
Lab Results:
Laboratory Data
WBC 3.7 10^3/uL (4.8-10.8) L 12/27/24 03:59
Hgb 8.6 g/dL (12.0-16.0) L 12/27/24 03:59
Plt Count 318 10^3/uL (130-400) 12/27/24 03:59
eGFR > 60.00 12/27/24 03:59
Physical Exam
HEENT: Other (NG tube); No Jaundice
Cardiology: S1 and S2
Pulmonary: Clear
[2024-12-27 07:45] VITALS: BP 148/67
[2024-12-27] MEDS: PROTONIX IV 40 MG IV (08:04)
[2024-12-27] MEDS: HEPARIN 5000 UNITS SC ×3 (08:11→23:07)
[2024-12-27] MEDS: HEPARIN SC (08:22)
[2024-12-27 12:34] LABS: Hematocrit 27.9 % (37.0-47.0)
--- NOTE | 2024-12-27 13:03 | W.PN.HOSP.TC ---
Today's Communication/Plan
-
monitor hgb
await return of bowel function
Assessment / Plan
Assessment / Plan
#Small bowel obstruction -likely related to adhesive disease versus malignant obstruction. CT scan demonstrates several mildly dilated fluid-filled small bowel loops within the pelvis with questionable transition point in the area of the terminal
ileum. NG tube placed 12/23. S/p laparoscopic lysis of adhesions and SBR 12/26. Awaiting return of bowel function; NGT; NPO
#Metastatic pancreatic cancer -on chemotherapy. Followed by Dr. Hall. Has a port in place. treatment pushed 3 weeks
#Hypovolemic hyponatremia -sodium improved.
#Rheumatoid arthritis -not on active treatment.
#Chronic inflammatory anemia -hemoglobin stable.
#pancytopenia - likely 2/2 to malignancy/chemo
N.p.o.
SQ heparin
Full code
Anticipated Discharge: > 48 hours
Subjective/Interval History
-
Date of Service: December 27, 2024
s/p laparoscopic lysis of adhesions and SBR
Objective Data
-
Labs:
Laboratory Results
12/27/24 12/27/24
03:59 12:25
WBC 3.7 L
Hgb 8.6 L 9.0 L
Hct 27.7 L 27.9 L
Plt Count 318
Sodium 141
Potassium 3.5
Chloride 108 H
Carbon Dioxide 26
BUN 14
Creatinine 0.5 L
Glucose 109 H
Calcium 7.5 L
Total Bilirubin 0.5
AST 21
ALT 11
Alkaline Phosphatase 46
Vital Signs:
Vital Signs
Temp Pulse Resp BP Pulse Ox
97.6 F 73 16 148/67 96
12/27/24 07:45 12/27/24 07:45 12/27/24 07:45 12/27/24 07:45 12/27/24 10:00
I&O
12/26/24 12/27/24 12/28/24
06:59 06:59 06:59
Intake Total 300 / 300 400 / 880 480 / 480
Output Total 700 / 700 470 / 470
Balance -400 / -400 -70 / 410 480 / 480
Review of Systems
-
History Source: Patient
All other systems: Not reviewed unless documented
Physical Exam
-
General: Well Developed, No Apparent Distress, Appears Chronically Ill and Cachectic
HEENT: Normocephalic, Atraumatic, Moist Mucous Membranes, Anicteric and Other (NGT in place)
Respiratory: Clear to Auscultation and Non Labored Respirations
Cardiac: Regular Rhythm and S1/S2; Negative Murmur, Rub or Gallop
GI: Soft, Nondistended, Normal Bowel Sounds and Tender
Musculoskeletal: No Clubbing, No Cyanosis and No Edema
Skin: Warm, Dry and Normal Turgor; Negative Rash
Neuro: AO x 3 and Nonfocal/Grossly Intact
Psych: Calm
Data Reviewed
-
Diagnostic Radiology: Report Reviewed by me
CT Scan: Report Reviewed by me
Labs: Labs Reviewed by me
--- NOTE | 2024-12-27 14:57 | PN.CDI ---
CDI
- -
CDI:
Physician Documentation Request
Admit Date: 12/22/24 12:54
Dear Doctor Tiffany,
Please review the following and provide your response in the progress notes.
Clinical Indicators:
12/27 Progress Note: 'Anemia likely due to operative blood loss from hemorrhagic ascites and dilution,..'
Clarify which of the following accurately represents the acuity of the operative blood loss anemia. Possible options might include:
Acute
Acute on Chronic
Other
Use of terms such as suspected, likely, concern for, or probable (associated with a specific diagnosis that is being evaluated, monitored, or treated as if it exists) are acceptable and can be coded in the inpatient setting, when documented at the
time of discharge.
Thank you,
Marcie Gruber RN, BSN
CDI Specialist
[facility]
Please use your independent medical judgment in providing your response.
[2024-12-27 15:45] VITALS: BP 148/81
[2024-12-27 23:45] VITALS: BP 149/73
[2024-12-28] MEDS: LR 1000 IV (04:35)
[2024-12-28] MEDS: DILAUDID 0.5 MG IV (05:02)
[2024-12-28 05:54] LABS: Mean Corpuscular Hgb 26.4 pg (27.0-31.0); Mean Platelet Volume 8.9 fL (7.4-10.4); Platelet Count 325 10^3/uL (130-400); Red Blood Cell Count 3.41 10^6/uL (4.20-5.40); Red Cell Dist. Width 17.1 % (11.5-14.5); White Blood Cell Count 5.5 10^3/uL (4.8-10.8)
[2024-12-28 06:06] LABS: ALT (SGPT) 13 U/L (0-35); AST (SGOT) 24 U/L (14-36); Albumin 3.2 g/dl (3.5-5.0); Alkaline Phosphatase 49 U/L (38-126); Blood Urea Nitrogen 9 mg/dl (7-17); Calcium 7.6 mg/dl (8.4-10.2); Carbon Dioxide 25 mmol/L (22-30); Chloride 103 mmol/L (98-107); Estimated Creatinine Clearance 57 ml/min; Glucose 72 mg/dl (70-99); Sodium 135 mmol/L (135-145); Total Bilirubin 0.6 mg/dl (0.2-1.3); Total Protein 5.3 g/dl (6.3-8.2); eGFR > 60.00
[2024-12-28 07:53] VITALS: BP 149/77
--- NOTE | 2024-12-28 08:43 | W.PN.GS2 ---
Today's Communication / Plan
-
-- NPO, NGT
-- TPN
Assessment / Plan
-
74 yo female p/w SBO secondary to adhesions
POD#2 s/p laparoscopic lysis of adhesions and SBR
AVSS
Labs with normalized WBC, anemia stable, normal renal function
Recovering well overall. Await return of bowel function prior to removing NGT given prolonged period of obstruction pre-op. Start TPN today. Anemia likely due to operative blood loss from hemorrhagic ascites and dilution, stable, no concerns for
active bleeding.
-- NPO, NGT
-- TPN
-- Pain control: Tylenol IV, Toradol, IV Dilaudid PRN
-- OOB/ambulate
-- DVT: SQH
-- GI: Protonix
Subjective Data
-
Date of Service: December 28, 2024
No complaints. Pain well controlled. No flatus or BM. No nausea or emesis. Voiding.
Objective Data
-
Intake and Output
12/27/24 12/28/24 12/29/24
06:59 06:59 06:59
Intake Total 400 / 880 690 / 690
Output Total 470 / 470 1850 / 1850
Balance -70 / 410 -1160 / -1160
Intake:
Oral fluids 540 / 540
IV fluids (Total) 340 / 340
Normosal 100 / 100
Amount instilled into GI Tube ( 60 / 60 150 / 150
Total)
[place] Sump 60 / 60 150 / 150
Output:
Gastrointestinal tube output ( 5 / 1075
Total)
[place] Sump 5 / 1075
Urine, Gauthier 200 / 200
Urine, Voided 250 / 250 775 / 775
Other:
Number of approximated SMALL 1
amounts of urine
Number of approximated MODERATE 2 1
amounts of urine
Vital Signs
Temp Pulse Resp BP Pulse Ox
98.0 F 68 17 149/77 95
12/28/24 07:53 12/28/24 07:53 12/28/24 07:53 12/28/24 07:53 12/28/24 07:53
Lab Results
12/28/24 05:28
12/28/24 05:28
Calcium 7.6 mg/dl (8.4-10.2) L 12/28/24 05:28
Magnesium 2.0 mg/dl (1.6-2.3) 12/28/24 05:28
Total Bilirubin 0.6 mg/dl (0.2-1.3) 12/28/24 05:28
AST 24 U/L (14-36) 12/28/24 05:28
ALT 13 U/L (0-35) 12/28/24 05:28
Alkaline Phosphatase 49 U/L (38-126) 12/28/24 05:28
Total Protein 5.3 g/dl (6.3-8.2) L 12/28/24 05:28
Albumin 3.2 g/dl (3.5-5.0) L 12/28/24 05:28
Physical Exam
-
Gen: NAD
HEENT: light bilious output
Abd: soft, mild tenerness (incisional), mild distension, non-peritoneal, incisions c/d/i, midline with some shadowing
Patient has a gauthier catheter: No
Patient has a central line: Yes
[2024-12-28] MEDS: HEPARIN 5000 UNITS SC ×3 (08:57→23:37)
[2024-12-28] MEDS: PROTONIX IV 40 MG IV (08:58)
[2024-12-28 09:35] LABS: ALT (SGPT) 14 U/L (0-35); AST (SGOT) 25 U/L (14-36); Albumin 3.2 g/dl (3.5-5.0); Alkaline Phosphatase 51 U/L (38-126); Blood Urea Nitrogen 8 mg/dl (7-17); Calcium 7.7 mg/dl (8.4-10.2); Carbon Dioxide 26 mmol/L (22-30); Chloride 101 mmol/L (98-107); Estimated Creatinine Clearance 57 ml/min; Glucose 67 mg/dl (70-99); Phosphorus 2.2 mg/dl (2.5-4.5); Potassium 2.9 mmol/L (3.5-5.1); Sodium 135 mmol/L (135-145); Total Bilirubin 0.5 mg/dl (0.2-1.3); Total Protein 5.4 g/dl (6.3-8.2); Triglycerides 130 mg/dl (10-149); eGFR > 60.00
[2024-12-28] MEDS: KCL 270 MEQ IV (10:12)
--- NOTE | 2024-12-28 12:00 | PTCARENOTE ---
Verbal reports provided to Harlan Schilling.
[2024-12-28 12:25] LABS: Glucose - Point of Care 51 mg/dl (70-99)
[2024-12-28] MEDS: NOVOLOG FLEXPEN-LOW RESISTANCE SC ×2 (12:28→18:11)
[2024-12-28] MEDS: DEXTROSE 50% SYRINGE 12.5 GRAMS IV (12:28)
--- NOTE | 2024-12-28 12:49 | W.PN.ONC2 ---
Today's Communication / Plan
-
.
Impression
Impression
Small bowel obstruction secondary to adhesions
stage IV pancreatic cancer
Plan
Plan
Surgical outcome noted. Status post small bowel resection with lysis of adhesions without evidence of intra-abdominal malignancy. Routine postoperative care.
Currently on Enhertu since sep with HER2 expression 3+. recent restaging CT showed positive response with decrease of several lung lesions. no new disease. CT AP on this admission without obvious new disease, new pelvic ascites in setting of
obstruction. Follows with Dr. Hall. Will have to reschedule next cycle. Office notified
� All other medical care per primary team
Subjective/Objective
Subjective
no new complaints
denies pain or bleeding
No BM, No flatus
ambulating to bathroom
Vital Signs:
Vital Signs
Temp Pulse Resp BP Pulse Ox
98.0 F 68 17 149/77 95
12/28/24 07:53 12/28/24 07:53 12/28/24 07:53 12/28/24 07:53 12/28/24 07:53
Lab Results:
Laboratory Data
WBC 5.5 10^3/uL (4.8-10.8) 12/28/24 05:28
Hgb 9.0 g/dL (12.0-16.0) L 12/28/24 05:28
Plt Count 325 10^3/uL (130-400) 12/28/24 05:28
eGFR > 60.00 12/28/24 09:01
Physical Exam
HEENT: Moist Mucous Membranes and Other (NGT); No Jaundice
Cardiology: Normal Sinus Rhythm
Pulmonary: Clear
GI: Soft
Extremities: Pulses Present; No Edema
[2024-12-28 12:59] LABS: Glucose - Point of Care 134 mg/dl (70-99)
--- NOTE | 2024-12-28 13:38 | W.PN.HOSP.TC ---
Today's Communication/Plan
-
Electrolyte repletion
TPN
NPO
Assessment / Plan
Assessment / Plan
#Small bowel obstruction -likely related to adhesive disease versus malignant obstruction. CT scan demonstrates several mildly dilated fluid-filled small bowel loops within the pelvis with questionable transition point in the area of the terminal
ileum. NG tube placed 12/23. S/p laparoscopic lysis of adhesions and SBR 12/26. Awaiting return of bowel function; NGT; NPO; start TPN
#Metastatic pancreatic cancer -on chemotherapy. Followed by Dr. Hall. Has a port in place. treatment pushed 3 weeks
#Hypokalemia, Hypophosphatemia - monitor and replete; TPN
#Hypovolemic hyponatremia -sodium improved.
#Rheumatoid arthritis -not on active treatment.
#Chronic inflammatory anemia -hemoglobin stable.
#pancytopenia - likely 2/2 to malignancy/chemo
N.p.o.
SQ heparin
Full code
Anticipated Discharge: > 48 hours
Subjective/Interval History
-
Date of Service: December 28, 2024
No acute events overnight, no bowel movements or Flatus
Objective Data
-
Labs:
Laboratory Results
12/28/24 12/28/24
05:28 09:01
WBC 5.5
Hgb 9.0 L
Hct 29.0 L
Plt Count 325
Sodium 135 135
Potassium 3.0 L 2.9 L
Chloride 103 101
Carbon Dioxide 25 26
BUN 9 8
Creatinine 0.4 L 0.4 L
Glucose 72 67 L
Calcium 7.6 L 7.7 L
Total Bilirubin 0.6 0.5
AST 24 25
ALT 13 14
Alkaline Phosphatase 49 51
Vital Signs:
Vital Signs
Temp Pulse Resp BP Pulse Ox
98.0 F 68 17 149/77 95
12/28/24 07:53 12/28/24 07:53 12/28/24 07:53 12/28/24 07:53 12/28/24 07:53
I&O
12/27/24 12/28/24 12/29/24
06:59 06:59 06:59
Intake Total 400 / 880 690 / 690
Output Total 470 / 470 1850 / 1850
Balance -70 / 410 -1160 / -1160
Review of Systems
-
History Source: Patient
All other systems: Not reviewed unless documented
Physical Exam
-
General: Well Developed, No Apparent Distress, Appears Chronically Ill and Cachectic
HEENT: Normocephalic, Atraumatic, Moist Mucous Membranes, Anicteric and Other (NGT in place)
Respiratory: Clear to Auscultation and Non Labored Respirations
Cardiac: Regular Rhythm and S1/S2; Negative Murmur, Rub or Gallop
GI: Soft, Nondistended, Normal Bowel Sounds and Tender
Musculoskeletal: No Clubbing, No Cyanosis and No Edema
Skin: Warm, Dry and Normal Turgor; Negative Rash
Neuro: AO x 3 and Nonfocal/Grossly Intact
Psych: Calm
Data Reviewed
-
Diagnostic Radiology: Report Reviewed by me
CT Scan: Report Reviewed by me
Labs: Labs Reviewed by me
--- NOTE | 2024-12-28 14:42 | CM ---
CM met with Mariah to complete IA.
Mariah was admitted for SBO with small bowel resection. Pt also being treated for stage IV pancreatic cancer; on chemotherapy. With current post-op condition, oncology has pushed back her next chemo treatment for 3 weeks.
Mariah lives with her in a split level home with 3 entry steps; no steps to enter through the garage.
Mariah is (I) amb and adls, anticipates discharge to home at discharge with no needs.
PCP: Myesha Hall
Pharmacy: [facility]
Plan: CM to follow for discharge planning needs as identified during post-op recovery
[2024-12-28] MEDS: SODIUM PHOSPHATE 255 MEQ IV (14:44)
[2024-12-28 15:24] VITALS: BP 162/81
[2024-12-28 18:03] LABS: Glucose - Point of Care 93 mg/dl (70-99)
[2024-12-28] MEDS: Parenteral Nutrition, Central 700 IV (20:48)
[2024-12-28] MEDS: LR IV (23:36)
[2024-12-29 00:22] LABS: Glucose - Point of Care 132 mg/dl (70-99)
[2024-12-29 00:31] VITALS: BP 142/71
[2024-12-29] MEDS: NOVOLOG FLEXPEN-LOW RESISTANCE SC (01:22)
[2024-12-29 03:41] LABS: Glucose - Point of Care 192 mg/dl (70-99)
[2024-12-29 06:21] LABS: Glucose - Point of Care 210 mg/dl (70-99)
[2024-12-29 06:35] LABS: Hematocrit 30.6 % (37.0-47.0); Hemoglobin 10.1 g/dL (12.0-16.0); Mean Corpuscular Hgb 26.4 pg (27.0-31.0); Mean Corpuscular Volume 79.9 fL (81.0-99.0); Mean Platelet Volume 9.6 fL (7.4-10.4); Platelet Count 394 10^3/uL (130-400); Red Blood Cell Count 3.83 10^6/uL (4.20-5.40); Red Cell Dist. Width 16.4 % (11.5-14.5); White Blood Cell Count 7.1 10^3/uL (4.8-10.8)
[2024-12-29 06:44] LABS: ALT (SGPT) 14 U/L (0-35); AST (SGOT) 23 U/L (14-36); Albumin 3.2 g/dl (3.5-5.0); Alkaline Phosphatase 54 U/L (38-126); Blood Urea Nitrogen 7 mg/dl (7-17); Calcium 8.2 mg/dl (8.4-10.2); Carbon Dioxide 27 mmol/L (22-30); Chloride 100 mmol/L (98-107); Estimated Creatinine Clearance 57 ml/min; Glucose 197 mg/dl (70-99); Phosphorus 2.4 mg/dl (2.5-4.5); Potassium 3.2 mmol/L (3.5-5.1); Sodium 130 mmol/L (135-145); Total Bilirubin 0.4 mg/dl (0.2-1.3); Total Protein 5.5 g/dl (6.3-8.2); eGFR > 60.00
[2024-12-29 07:57] VITALS: BP 139/83
[2024-12-29] MEDS: NOVOLOG FLEXPEN-LOW RESISTANCE 2 UNITS SC ×2 (08:01→13:21)
[2024-12-29] MEDS: HEPARIN 5000 UNITS SC ×3 (08:02→23:54)
[2024-12-29] MEDS: PROTONIX IV 40 MG IV (08:02)
[2024-12-29] MEDS: NSS (PRESERVATIVE FREE) 10 ML IV (08:09)
--- NOTE | 2024-12-29 09:00 | VATNOTE ---
Pt's port needs to be reaccessed today per protocol. PCN asked to please have weight shifter RN coordinate with VAT port reaccess with TPN change at approx 2100. Pt educated to make sure port is reaccessed before new TPN bag hung. Verbalizes
understanding.
--- NOTE | 2024-12-29 09:23 | W.PN.ONC2 ---
Documented by User: Princess Engel DO, Resident 12/29/24 09:27
Today's Communication / Plan
-
.
Impression
Impression
Small bowel obstruction secondary to adhesions
stage IV pancreatic cancer
Plan
Plan
- FU with Dr. Hall OP. Reschedule missed cycle of enhertu.
- continue NGT, fluids, tpn
- progress diet as prescribed by surgical team.
� All other medical care per primary team
Subjective/Objective
Subjective
No complaints overnight. She states she still has mild nausea, but otherwise no significant abdominal pain or vomitting. She missed her cycle of chemo this week and would like to just wait until next cycle 01/17 to resume. She sees Dr. Hall at
the [place] office. Recent restaging CT showed positive response with decrease of several lung lesions. no new disease. CT AP on this admission without obvious new disease, new pelvic ascites in setting of obstruction.
Vital Signs:
Vital Signs
Temp Pulse Resp BP Pulse Ox
97.9 F 75 16 139/83 95
12/29/24 07:57 12/29/24 07:57 12/29/24 07:57 12/29/24 07:57 12/29/24 07:57
Lab Results:
Laboratory Data
WBC 7.1 10^3/uL (4.8-10.8) 12/29/24 05:39
Hgb 10.1 g/dL (12.0-16.0) L 12/29/24 05:39
Plt Count 394 10^3/uL (130-400) D 12/29/24 05:39
eGFR > 60.00 12/29/24 05:39
Physical Exam
General: AAOx3, conversant, resting comfortably in bed
GI: Soft
Extremities: No C/C/E
Review of Systems
Review of Systems
Reviewed and negative unless otherwise stated
Gastrointestinal: Reports Nausea/Vomiting

Documented by User: Emanuel Moore MD 12/29/24 13:00
Today's Communication / Plan
-
. Agree with plans as stated by biomedical engineering internship.
--- NOTE | 2024-12-29 09:38 | W.PN.GS2 ---
Addendum entered and electronically signed by Yogesh Andrew MD 12/29/24 12:07:
I saw and examined the patient independently.
The Crm Marketing Analyst's note was reviewed and I agree with the note, assessment and plan except where noted below.
Comment: This is a 74-year-old female with history of pancreatic cancer status post abdominal mets status post total abdominal hysterectomy now postoperative day 3 from a laparoscopic lysis of adhesions and SBR for a small bowel stricture. Doing
well, now with return of bowel function however still mildly distended on exam.
Will do a NG tube clamp trial today. If she passes okay to start clears
TPN until on a LRD p.o. diet
Pain control
Surgery will continue to follow
Original Note:
Today's Communication / Plan
-
NGT clamp trial
Assessment / Plan
-
74 yo female p/w SBO secondary to adhesions
POD#3 s/p laparoscopic lysis of adhesions and SBR
AVSS
Labs with normalized WBC, anemia stable/improved, normal renal function
Hyponatremia, hypokalemia, hypophosphatemia
Recovering well overall and beginning to have signs of bowel recovery
-- Clamp trial of NGT
-- Replace electrolytes and trend labs
-- TPN renewed, appreciate nutrition recs. Thiamine 100mg daily x5
-- Pain control: Tylenol IV, Toradol, IV Dilaudid PRN
-- OOB/ambulate
-- DVT: SQH
-- GI: Protonix
Subjective Data
-
Date of Service: December 29, 2024
Patient seen and examined at bedside with Dr. Andrew. Denies n/v. NGT currently clamped. Passing flatus and several stools. Denies pain. Feeling overall much better.
Objective Data
-
Intake and Output
12/28/24 12/29/24 12/30/24
06:59 06:59 06:59
Intake Total 690 / 690 270 / 270 214 / 214
Output Total 1850 / 1850 450 / 450
Balance -1160 / -1160 270 / 270 -236 / -236
Intake:
Oral fluids 540 / 540
IV piggybacks 270 / 270
TPN/PPN 174 / 174
Amount instilled into GI Tube ( 150 / 150 40 / 40
Total)
Harlan Sump 150 / 150 40 / 40
Output:
Gastrointestinal tube output ( 1075 / 1075 450 / 450
Total)
Harlan Sump 1075 / 1075 450 / 450
Urine, Voided 775 / 775
Other:
Number of approximated SMALL 1
amounts of urine
Number of approximated MODERATE 1 3
amounts of urine
Number of approximated LARGE 2
amounts of urine
Vital Signs
Temp Pulse Resp BP Pulse Ox
97.9 F 75 16 139/83 95
12/29/24 07:57 12/29/24 07:57 12/29/24 07:57 12/29/24 07:57 12/29/24 07:57
Lab Results
12/29/24 05:39
12/29/24 05:39
Calcium 8.2 mg/dl (8.4-10.2) L 12/29/24 05:39
Phosphorus 2.4 mg/dl (2.5-4.5) L 12/29/24 05:39
Magnesium 2.0 mg/dl (1.6-2.3) 12/29/24 05:39
Total Bilirubin 0.4 mg/dl (0.2-1.3) 12/29/24 05:39
AST 23 U/L (14-36) 12/29/24 05:39
ALT 14 U/L (0-35) 12/29/24 05:39
Alkaline Phosphatase 54 U/L (38-126) 12/29/24 05:39
Total Protein 5.5 g/dl (6.3-8.2) L 12/29/24 05:39
Albumin 3.2 g/dl (3.5-5.0) L 12/29/24 05:39
Physical Exam
-
Gen: NAD
HEENT: NGT clamped
Abd: soft, mild tenderness (incisional), ND, non-peritoneal, incisions c/d/i, midline with some shadowing
Patient has a gauthier catheter: No
Patient has a central line: Yes (port)
[2024-12-29] MEDS: THIAMINE INJECTION 100 MG IV (10:25)
--- NOTE | 2024-12-29 11:33 | PTCARENOTE ---
patient's ng tube clamped from 9:30 to 11 as ordered and then placed back to low intermittent suction at 11am as ordered and drained 50mls of green drainage. per order NG tube could then be removed if drainage less than 150mls. ng tube to be
removed per order. Evy Cagle and Dr. Garza updated and patient to start on sips of clear liquids, will continue to monitor.
--- NOTE | 2024-12-29 11:33 | W.PN.HOSP.TC ---
Today's Communication/Plan
-
clamping trial
K repletion once cleared for PO
monitor Na
Assessment / Plan
Assessment / Plan
#Small bowel obstruction -likely related to adhesive disease versus malignant obstruction. CT scan demonstrates several mildly dilated fluid-filled small bowel loops within the pelvis with questionable transition point in the area of the terminal
ileum. NG tube placed 12/23. S/p laparoscopic lysis of adhesions and SBR 12/26. 3 BMs and passing flatus 12/28; clam NGT; NPO; anticipate stopping TPN if passed clamping trial
#Metastatic pancreatic cancer -on chemotherapy. Followed by Dr. Hall. Has a port in place. treatment pushed 3 weeks
#Hypokalemia, Hypophosphatemia - monitor and replete; TPN
#Hypovolemic hyponatremia -monitor
#Rheumatoid arthritis -not on active treatment.
#Chronic inflammatory anemia -hemoglobin stable.
#pancytopenia - likely 2/2 to malignancy/chemo
N.p.o.
SQ heparin
Full code
Anticipated Discharge: 24 - 48 hours
Subjective/Interval History
-
Date of Service: December 29, 2024
had 3 bms, passing flatus since yesterday
Objective Data
-
Labs:
Laboratory Results
12/29/24
05:39
WBC 7.1
Hgb 10.1 L
Hct 30.6 L
Plt Count 394 D
Sodium 130 L
Potassium 3.2 L
Chloride 100
Carbon Dioxide 27
BUN 7
Creatinine 0.4 L
Glucose 197 H
Calcium 8.2 L
Total Bilirubin 0.4
AST 23
ALT 14
Alkaline Phosphatase 54
Vital Signs:
Vital Signs
Temp Pulse Resp BP Pulse Ox
97.9 F 75 16 139/83 95
12/29/24 07:57 12/29/24 07:57 12/29/24 07:57 12/29/24 07:57 12/29/24 07:57
I&O
12/28/24 12/29/24 12/30/24
06:59 06:59 06:59
Intake Total 690 / 690 270 / 270 214 / 214
Output Total 1850 / 1850 450 / 450
Balance -1160 / -1160 270 / 270 -236 / -236
Review of Systems
-
History Source: Patient
All other systems: Not reviewed unless documented
Physical Exam
-
General: Well Developed, No Apparent Distress, Appears Chronically Ill and Cachectic
HEENT: Normocephalic, Atraumatic, Moist Mucous Membranes, Anicteric and Other (NGT in place)
Respiratory: Clear to Auscultation and Non Labored Respirations
Cardiac: Regular Rhythm and S1/S2; Negative Murmur, Rub or Gallop
GI: Soft, Nondistended, Normal Bowel Sounds and Tender
Musculoskeletal: No Clubbing, No Cyanosis and No Edema
Skin: Warm, Dry and Normal Turgor; Negative Rash
Neuro: AO x 3 and Nonfocal/Grossly Intact
Psych: Calm
Data Reviewed
-
Diagnostic Radiology: Report Reviewed by me
CT Scan: Report Reviewed by me
Labs: Labs Reviewed by me
[2024-12-29 12:08] LABS: Glucose - Point of Care 200 mg/dl (70-99)
[2024-12-29] MEDS: KCL 40 MEQ PO (14:52)
[2024-12-29 15:23] VITALS: BP 147/77
--- NOTE | 2024-12-29 15:34 | PTCARENOTE ---
this am, patient refusing potassium Phosphate rider. she verbalized that she didn't want a peripheral IV. rosa isela texted both Evy Cagle and Dr. Garza multiple times as out policy is nothing should be ran with TPN and when checking
compatibility, it says incompatible or not tested. Also, spoke with pharmacist Padmini. at 1333, Diallo Cagle placed order for oral potassium (see new orders) and patient was changed to sips of clear liquids. will continue to monitor.
[2024-12-29 17:04] LABS: Glucose - Point of Care 177 mg/dl (70-99)
[2024-12-29] MEDS: NOVOLOG FLEXPEN-LOW RESISTANCE 1 UNITS SC (17:30)
[2024-12-29] MEDS: Parenteral Nutrition, Central 820 IV (21:08)
[2024-12-29 23:00] VITALS: BP 142/80
[2024-12-30 00:01] LABS: Glucose - Point of Care 185 mg/dl (70-99)
[2024-12-30] MEDS: TORADOL 10 MG IV (04:30)
[2024-12-30 04:57] LABS: Hematocrit 30.1 % (37.0-47.0); Hemoglobin 9.6 g/dL (12.0-16.0); Mean Corp Hgb Conc. 31.9 g/dL (33.0-37.0); Mean Corpuscular Hgb 26.1 pg (27.0-31.0); Mean Corpuscular Volume 81.8 fL (81.0-99.0); Platelet Count 366 10^3/uL (130-400); Red Blood Cell Count 3.68 10^6/uL (4.20-5.40); Red Cell Dist. Width 16.8 % (11.5-14.5); White Blood Cell Count 7.3 10^3/uL (4.8-10.8)
[2024-12-30 05:28] LABS: ALT (SGPT) 14 U/L (0-35); AST (SGOT) 20 U/L (14-36); Albumin 3.2 g/dl (3.5-5.0); Alkaline Phosphatase 49 U/L (38-126); Blood Urea Nitrogen 13 mg/dl (7-17); Calcium 8.4 mg/dl (8.4-10.2); Carbon Dioxide 26 mmol/L (22-30); Chloride 106 mmol/L (98-107); Estimated Creatinine Clearance 57 ml/min; Glucose 165 mg/dl (70-99); Magnesium 2.1 mg/dl (1.6-2.3); Phosphorus 2.7 mg/dl (2.5-4.5); Potassium 4.1 mmol/L (3.5-5.1); Sodium 135 mmol/L (135-145); Total Bilirubin 0.4 mg/dl (0.2-1.3); Total Protein 5.5 g/dl (6.3-8.2); eGFR > 60.00
[2024-12-30 06:00] VITALS: BMI 17.5
[2024-12-30 06:56] LABS: Glucose - Point of Care 167 mg/dl (70-99)
[2024-12-30 07:00] VITALS: BP 130/78
[2024-12-30] MEDS: NOVOLOG FLEXPEN-LOW RESISTANCE 1 UNITS SC ×3 (07:10→12:31)
[2024-12-30] MEDS: HEPARIN 5000 UNITS SC ×3 (08:21→23:19)
[2024-12-30] MEDS: THIAMINE INJECTION 100 MG IV (08:23)
[2024-12-30] MEDS: NSS (PRESERVATIVE FREE) 10 ML IV (08:23)
[2024-12-30] MEDS: PROTONIX IV 40 MG IV (08:23)
--- NOTE | 2024-12-30 10:52 | W.PN.ONC ---
Today's Communication / Plan
-
Post-op mgmt per general surgery
I'll see her in the office on 01/10 to plan next chemo, likely 01/17/25
will sign off, please call w/ questions
Impression
Impression
Small bowel obstruction secondary to adhesions (path benign)
stage IV pancreatic cancer
Plan
Plan
Post-op mgmt per general surgery
I'll see her in the office on 01/10 to plan next chemo, likely 01/17/25
will sign off, please call w/ questions
Subjective/Objective
Subjective/Objective
drinking juice, feeling pretty good, just bored
Vital Signs:
Vital Signs
Temp Pulse Resp BP Pulse Ox
98.8 F 77 16 130/78 97
12/30/24 07:00 12/30/24 07:00 12/30/24 07:00 12/30/24 07:00 12/30/24 07:00
Lab Results:
Laboratory Data
WBC 7.3 10^3/uL (4.8-10.8) 12/30/24 04:48
Hgb 9.6 g/dL (12.0-16.0) L 12/30/24 04:48
Plt Count 366 10^3/uL (130-400) 12/30/24 04:48
eGFR > 60.00 12/30/24 04:48
--- NOTE | 2024-12-30 12:03 | W.PN.HOSP.TC ---
Today's Communication/Plan
-
ADAT as per surgery
Assessment / Plan
Assessment / Plan
#Small bowel obstruction -likely related to adhesive disease versus malignant obstruction. CT scan demonstrates several mildly dilated fluid-filled small bowel loops within the pelvis with questionable transition point in the area of the terminal
ileum. NG tube placed 12/23. S/p laparoscopic lysis of adhesions and SBR 12/26. 3 BMs and passing flatus 12/28; tolerating CLD. anticipate stopping TPN if passed clamping trial and tolerating LRD.
#Metastatic pancreatic cancer -on chemotherapy. Followed by Dr. Hall. Has a port in place. treatment pushed 3 weeks. Onc: office on 01/10 to plan next chemo, likely 01/17/25
#Hypokalemia, Hypophosphatemia - monitor and replete; TPN
#Hypovolemic hyponatremia -monitor
#Rheumatoid arthritis -not on active treatment.
#Chronic inflammatory anemia -hemoglobin stable.
#pancytopenia - likely 2/2 to malignancy/chemo
N.p.o.
SQ heparin
Full code
Anticipated Discharge: 24 - 48 hours
Subjective/Interval History
-
Date of Service: December 30, 2024
Continues to have bowel movements
Objective Data
-
Labs:
Laboratory Results
12/30/24
04:48
WBC 7.3
Hgb 9.6 L
Hct 30.1 L
Plt Count 366
Sodium 135
Potassium 4.1 D
Chloride 106
Carbon Dioxide 26
BUN 13
Creatinine 0.3 L
Glucose 165 H
Calcium 8.4
Total Bilirubin 0.4
AST 20
ALT 14
Alkaline Phosphatase 49
Vital Signs:
Vital Signs
Temp Pulse Resp BP Pulse Ox
98.8 F 77 16 130/78 97
12/30/24 07:00 12/30/24 07:00 12/30/24 07:00 12/30/24 07:00 12/30/24 07:00
I&O
12/29/24 12/30/24 12/31/24
06:59 06:59 06:59
Intake Total 270 / 270 1380 / 1380
Output Total 500 / 500
Balance 270 / 270 880 / 880
Review of Systems
-
History Source: Patient
All other systems: Not reviewed unless documented
Physical Exam
-
General: Well Developed, No Apparent Distress, Appears Chronically Ill and Cachectic
HEENT: Normocephalic, Atraumatic, Moist Mucous Membranes and Anicteric
Respiratory: Clear to Auscultation and Non Labored Respirations
Cardiac: Regular Rhythm and S1/S2; Negative Murmur, Rub or Gallop
GI: Soft, Nondistended, Normal Bowel Sounds and Tender (soft, mild tenderness (incisional), ND, non-peritoneal, incisions c/d/i, midline with some shadowing)
Musculoskeletal: No Clubbing, No Cyanosis and No Edema
Skin: Warm, Dry and Normal Turgor; Negative Rash
Neuro: AO x 3 and Nonfocal/Grossly Intact
Psych: Calm
Data Reviewed
-
Diagnostic Radiology: Report Reviewed by me
CT Scan: Report Reviewed by me
Labs: Labs Reviewed by me
[2024-12-30 12:04] LABS: Glucose - Point of Care 170 mg/dl (70-99)
--- NOTE | 2024-12-30 13:10 | W.PN.GS2 ---
Today's Communication / Plan
-
Full liquid diet, complete TPN
Assessment / Plan
-
74 yo female p/w SBO secondary to adhesions
POD#4 s/p laparoscopic lysis of adhesions and SBR
AVSS
Labs with normalized WBC, anemia stable/improved, normal renal function
Electrolytes within range
Recovering well overall, pain resolved and passing flatus/stools
NGT removed 12/29 and pt tolerating clears
-- Advance to FLD, anticipate will be able to advance to LRD in AM
-- Replace electrolytes and trend labs
-- Complete this bag of TPN then discontinue
-- Pain control: Tylenol PO, Toradol, IV Dilaudid PRN
-- OOB/ambulate
-- DVT: SQH
-- GI: Protonix
Subjective Data
-
Date of Service: December 30, 2024
Patient seen and examined at bedside with Dr. Landeros. Denies n/v. Feels better than she has in a long time and has more energy. Denies pain.
Objective Data
-
Intake and Output
12/29/24 12/30/24 12/31/24
06:59 06:59 06:59
Intake Total 270 / 270 1380 / 1380
Output Total 500 / 500
Balance 270 / 270 880 / 880
Intake:
Oral fluids 420 / 420
IV piggybacks 270 / 270
TPN/PPN 920 / 920
Amount instilled into GI Tube ( 40 / 40
Total)
Rains Sump 40 / 40
Output:
Gastrointestinal tube output ( 500 / 500
Total)
Rains Sump 500 / 500
Other:
Number of approximated MODERATE 3 2
amounts of urine
Number of approximated LARGE 2 2
amounts of urine
Vital Signs
Temp Pulse Resp BP Pulse Ox
98.8 F 77 16 130/78 97
12/30/24 07:00 12/30/24 07:00 12/30/24 07:00 12/30/24 07:00 12/30/24 07:00
Lab Results
12/30/24 04:48
12/30/24 04:48
Calcium 8.4 mg/dl (8.4-10.2) 12/30/24 04:48
Phosphorus 2.7 mg/dl (2.5-4.5) 12/30/24 04:48
Magnesium 2.1 mg/dl (1.6-2.3) 12/30/24 04:48
Total Bilirubin 0.4 mg/dl (0.2-1.3) 12/30/24 04:48
AST 20 U/L (14-36) 12/30/24 04:48
ALT 14 U/L (0-35) 12/30/24 04:48
Alkaline Phosphatase 49 U/L (38-126) 12/30/24 04:48
Total Protein 5.5 g/dl (6.3-8.2) L 12/30/24 04:48
Albumin 3.2 g/dl (3.5-5.0) L 12/30/24 04:48
Physical Exam
-
Gen: NAD
Abd: soft, NT, ND, non-peritoneal, incisions c/d/i
Patient has a gauthier catheter: No
Patient has a central line: Yes (port)
[2024-12-30 15:00] VITALS: BP 129/84
[2024-12-30 17:40] LABS: Glucose - Point of Care 158 mg/dl (70-99)
[2024-12-30] MEDS: NOVOLOG FLEXPEN-LOW RESISTANCE SC (17:41)
[2024-12-30 20:38] LABS: Glucose - Point of Care 143 mg/dl (70-99)
[2024-12-30 23:39] VITALS: BP 122/72
[2024-12-31] MEDS: TYLENOL 1000 MG PO (03:16)
[2024-12-31 06:12] LABS: Hematocrit 30.1 % (37.0-47.0); Hemoglobin 9.9 g/dL (12.0-16.0); Mean Corp Hgb Conc. 32.9 g/dL (33.0-37.0); Mean Corpuscular Hgb 26.6 pg (27.0-31.0); Mean Corpuscular Volume 80.9 fL (81.0-99.0); Platelet Count 360 10^3/uL (130-400); Red Blood Cell Count 3.72 10^6/uL (4.20-5.40); Red Cell Dist. Width 17.4 % (11.5-14.5); White Blood Cell Count 8.1 10^3/uL (4.8-10.8)
[2024-12-31 06:52] LABS: ALT (SGPT) 20 U/L (0-35); AST (SGOT) 24 U/L (14-36); Albumin 3.3 g/dl (3.5-5.0); Alkaline Phosphatase 64 U/L (38-126); Blood Urea Nitrogen 15 mg/dl (7-17); Calcium 8.4 mg/dl (8.4-10.2); Carbon Dioxide 23 mmol/L (22-30); Chloride 106 mmol/L (98-107); Estimated Creatinine Clearance 56 ml/min; Glucose 118 mg/dl (70-99); Magnesium 1.9 mg/dl (1.6-2.3); Phosphorus 3.6 mg/dl (2.5-4.5); Potassium 4.5 mmol/L (3.5-5.1); Sodium 134 mmol/L (135-145); Total Bilirubin 0.4 mg/dl (0.2-1.3); Total Protein 5.6 g/dl (6.3-8.2); eGFR > 60.00
[2024-12-31 07:00] VITALS: BP 114/64
[2024-12-31 07:53] LABS: Glucose - Point of Care 113 mg/dl (70-99)
[2024-12-31] MEDS: NSS (PRESERVATIVE FREE) 10 ML IV (09:00)
[2024-12-31] MEDS: PROTONIX IV 40 MG IV (09:00)
[2024-12-31] MEDS: ZENPEP DELAYED RELEASE CAPSULE 1 CAPSULE PO (09:00)
[2024-12-31] MEDS: HEPARIN 5000 UNITS SC (09:01)
[2024-12-31] MEDS: NEURONTIN 300 MG PO (09:01)
[2024-12-31] MEDS: THIAMINE INJECTION 100 MG IV (09:01)
--- NOTE | 2024-12-31 10:01 | W.PN.GS2 ---
Today's Communication / Plan
-
dispo planning
Assessment / Plan
-
74 yo female p/w SBO secondary to adhesions
POD#5 s/p laparoscopic lysis of adhesions and SBR
AVSS
Labs stable
Recovering well overall, pain resolved and passing flatus/stools. Tolerating dietary advancements
-- Low residue diet
-- Pain control; has just been taking PO tylenol
-- OOB/ambulate
-- DVT: SQH
-- GI: Protonix
Ok for d/c if tolerating diet
Subjective Data
-
Date of Service: December 31, 2024
Patient seen and examined at bedside with Dr. Landeros. Denies n/v. Tolerating diet. OOB ambulating. Abdominal cramping has improved. Passing flatus/stools. Feeling better everyday
Objective Data
-
Intake and Output
12/30/24 12/31/24 01/01/25
06:59 06:59 06:59
Intake Total 1380 / 1380 1200 / 1200
Output Total 500 / 500
Balance 880 / 880 1200 / 1200
Intake:
Oral fluids 420 / 420 1200 / 1200
TPN/PPN 920 / 920
Amount instilled into GI Tube ( 40 / 40
Total)
Flathead Sump 40 / 40
Output:
Gastrointestinal tube output ( 500 / 500
Total)
Flathead Sump 500 / 500
Other:
Number of approximated MODERATE 2 3
amounts of urine
Number of approximated LARGE 2
amounts of urine
Vital Signs
Temp Pulse Resp BP Pulse Ox
97.6 F 69 16 114/64 100
12/31/24 07:00 12/31/24 07:00 12/31/24 07:00 12/31/24 07:00 12/31/24 07:00
Lab Results
12/31/24 06:03
12/31/24 06:03
Calcium 8.4 mg/dl (8.4-10.2) 12/31/24 06:03
Phosphorus 3.6 mg/dl (2.5-4.5) 12/31/24 06:03
Magnesium 1.9 mg/dl (1.6-2.3) 12/31/24 06:03
Total Bilirubin 0.4 mg/dl (0.2-1.3) 12/31/24 06:03
AST 24 U/L (14-36) 12/31/24 06:03
ALT 20 U/L (0-35) 12/31/24 06:03
Alkaline Phosphatase 64 U/L (38-126) 12/31/24 06:03
Total Protein 5.6 g/dl (6.3-8.2) L 12/31/24 06:03
Albumin 3.3 g/dl (3.5-5.0) L 12/31/24 06:03
Physical Exam
-
Gen: NAD
Abd: soft, NT, ND, non-peritoneal, incisions c/d/i
Patient has a gauthier catheter: No
Patient has a central line: Yes (port)
--- NOTE | 2024-12-31 10:22 | W.PN.HOSP.TC ---
Addendum entered and electronically signed by Zac Garza MD 12/31/24 13:27:
[id number]
Original Note:
Today's Communication/Plan
-
LRD
pain control
F/u Onc, Surg, pcp outpt
Assessment / Plan
Assessment / Plan
#Small bowel obstruction -likely related to adhesive disease versus malignant obstruction. CT scan demonstrates several mildly dilated fluid-filled small bowel loops within the pelvis with questionable transition point in the area of the terminal
ileum. NG tube placed 12/23. S/p laparoscopic lysis of adhesions and SBR 12/26. passing BMs and passing flatus 12/28; tolerating LRD; TPN off
#Metastatic pancreatic cancer -on chemotherapy. Followed by Dr. Hall. Has a port in place. treatment pushed 3 weeks. Onc: office on 01/10 to plan next chemo, likely 01/17/25
#Hypokalemia, Hypophosphatemia - monitor and replete; TPN
#Hypovolemic hyponatremia -monitor
#Hyponatremia - - monitor outpt
#Rheumatoid arthritis -not on active treatment.
#Chronic inflammatory anemia -hemoglobin stable.
#pancytopenia - likely 2/2 to malignancy/chemo
SQ heparin
Full code
More than 30 minutes spent in discharge including
Final examination of the patient
Summarizing hospital stay
Instructions for continuing care to all relevant caregivers
Preparation of discharge records, prescriptions, and referral forms
Total time spent (in minutes): 36
Anticipated Discharge: Today
Subjective/Interval History
-
Date of Service: December 31, 2024
tolerating diet
Objective Data
-
Labs:
Laboratory Results
12/31/24
06:03
WBC 8.1
Hgb 9.9 L
Hct 30.1 L
Plt Count 360
Sodium 134 L
Potassium 4.5
Chloride 106
Carbon Dioxide 23
BUN 15
Creatinine 0.4 L
Glucose 118 H
Calcium 8.4
Total Bilirubin 0.4
AST 24
ALT 20
Alkaline Phosphatase 64
Vital Signs:
Vital Signs
Temp Pulse Resp BP Pulse Ox
97.6 F 69 16 114/64 100
12/31/24 07:00 12/31/24 07:00 12/31/24 07:00 12/31/24 07:00 12/31/24 07:00
I&O
12/30/24 12/31/24 01/01/25
06:59 06:59 06:59
Intake Total 1380 / 1380 1200 / 1200
Output Total 500 / 500
Balance 880 / 880 1200 / 1200
Review of Systems
-
History Source: Patient
All other systems: Not reviewed unless documented
Physical Exam
-
General: Well Developed, No Apparent Distress, Appears Chronically Ill and Cachectic
HEENT: Normocephalic, Atraumatic, Moist Mucous Membranes and Anicteric
Respiratory: Clear to Auscultation and Non Labored Respirations
Cardiac: Regular Rhythm and S1/S2; Negative Murmur, Rub or Gallop
GI: Soft, Nondistended, Normal Bowel Sounds and Tender (soft, mild tenderness (incisional), ND, non-peritoneal, incisions c/d/i, midline with some shadowing)
Musculoskeletal: No Clubbing, No Cyanosis and No Edema
Skin: Warm, Dry and Normal Turgor; Negative Rash
Neuro: AO x 3 and Nonfocal/Grossly Intact
Psych: Calm
Data Reviewed
-
Diagnostic Radiology: Report Reviewed by me
CT Scan: Report Reviewed by me
Labs: Labs Reviewed by me
--- NOTE | 2024-12-31 10:36 | W.DS.TRANS ---
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
-
Discharge Instructions:
Discharge Diagnosis/Procedures Small bowel obstruction status post laparoscopic
assisted lysis of adhesions and SBR
Diet Low Fiber,As tolerated
Additional Diets Low fiber for approximately 2-3 weeks
Activity No strenuous activity
Additional Activity do not lift over 15lbs for the next 3-4 weeks
Driving Restrictions Wait until not too sore/comfortable twisting
Bathing Restrictions OK to Shower
Blood Work cbc and cmp in 1 week with pcp
Wound Care Allow the glue to flake off your incisions on
its own over the next 2-3 weeks. Avoid scrubbing
or picking it off. Do not soak or submerge in
tubs or pools for the next 2 weeks. Beneath the
glue are dissolving sutures.
Instructions: Low-fiber diet
Stand-Alone Forms:
Changes to Home Medications: Yes
Discharge Medications:
DC Medications w/original date entered in [facility]
ascorbic acid (vitamin C) 500 mg capsule 500 mg PO DAILY Supplement 05/01/21
multivitamin-ferrous fumarate-folic acid 18 mg-400 mcg tablet (Centrum) 1 ea PO DAILY Supplement 05/01/21
lansoprazole 30 mg capsule,delayed release 30 mg PO DAILY Gastrointestinal Issue 12/10/22
[id number] 24,000-76,000-120,000 unit capsule,delayed rel (Creon) 1 cap PO TID Gastrointestinal Issue 05/11/24
denosumab 60 mg/mL subcutaneous syringe (Prolia) 60 mg SC [id number] Bone Health 09/28/24
gabapentin 300 mg capsule 300 mg PO BID Neurological Condition 09/28/24
polyethylene glycol 3350 17 gram/dose oral powder (Miralax) 17 g PO DAILY Gastrointestinal Issue 09/28/24
ibuprofen 200 mg tablet (Advil) 600 mg PO DAILYPRN PRN MILD PAIN 12/22/24
lorazepam 0.5 mg tablet 0.5 mg PO HSPRN PRN SLEEP 12/22/24
acetaminophen 500 mg tablet (Tylenol Extra Strength) 1,000 mg (2 x 500 mg) PO Q6HPRN PRN mild pain #30 tabs 12/31/24
Home Medication Changes
acetaminophen 500 mg tablet (Tylenol Extra Strength) 1,000 mg (2 x 500 mg) PO Q6HPRN PRN mild pain #30 tabs 12/31/24
Pending Results: No
--- NOTE | 2024-12-31 10:46 | CM ---
Met with patient at bedside
IMM benefit explained; form signed @ 104
Plan: Discharge to home today; no services needed; will transport home
[2024-12-31 11:45] VITALS: BP 122/68
== END 2024-12-31 11:57 | disposition home or self-care (01) | DRG 329 ==
LOC: 3 WEST ACU 12:54
PROVIDERS: Internal Medicine; Registered Nurse; ADMITTING PHYSICIAN Hospitalist; ATTENDING PHYSICIAN Internal Medicine; CONSULT PHYSICIAN Surgery; EMERGENCY PHYSICIAN Emergency Medicine; FAMILY PHYSICIAN Internal Medicine Hematology & Oncology; OTHER PHYSICIAN Internal Medicine Hematology & Oncology
PROC: 0DB84ZZ Excision of Small Intestine, Percutaneous Endoscopic Approach (ICD-10-PCS; 2024-12-26)
PROC: 0DN84ZZ Release Small Intestine, Percutaneous Endoscopic Approach (ICD-10-PCS; 2024-12-26)
DX: K56.50 Intestinal adhesions [bands], unspecified as to partial versus complete obstruction (principal); D61.810 Antineoplastic chemotherapy induced pancytopenia; E43 Unspecified severe protein-calorie malnutrition; C25.9 Malignant neoplasm of pancreas, unspecified; E87.1 Hypo-osmolality and hyponatremia; Z68.1 Body mass index [BMI] 19.9 or less, adult; C79.60 Secondary malignant neoplasm of unspecified ovary; C78.00 Secondary malignant neoplasm of unspecified lung; R18.8 Other ascites; R64 Cachexia; E86.1 Hypovolemia; M06.9 Rheumatoid arthritis, unspecified; E78.5 Hyperlipidemia, unspecified; M81.0 Age-related osteoporosis without current pathological fracture; K21.9 Gastro-esophageal reflux disease without esophagitis; L40.9 Psoriasis, unspecified; K64.8 Other hemorrhoids; Z87.891 Personal history of nicotine dependence; Z88.0 Allergy status to penicillin; Z95.828 Presence of other vascular implants and grafts; E87.6 Hypokalemia; E83.39 Other disorders of phosphorus metabolism; D63.0 Anemia in neoplastic disease; Z79.899 Other long term (current) drug therapy; Z90.411 Acquired partial absence of pancreas; Z90.710 Acquired absence of both cervix and uterus; Z92.21 Personal history of antineoplastic chemotherapy
CPT/HCPCS: 88305; 88307; 71045; 74018; 74177; 74250; 80048; 80053; 82962; 83690; 83735; 84100; 84478; 85014; 85018; 85025; 85027; 86301; 88112; 99284; C1776; J1335; Q9967

== ENCOUNTER → 2025-01-29 07:48 | Outpatient (REF) | payer BC, SELFPAY | LOC: HWRAD 07:48 | PROVIDERS: ATTENDING PHYSICIAN Internal Medicine Rheumatology; FAMILY PHYSICIAN Family Medicine | DX: M81.0 Age-related osteoporosis without current pathological fracture (principal) | CPT/HCPCS: 77080 ==

== ENCOUNTER → 2025-02-28 07:36 | Outpatient (REF) | payer BC, SELFPAY | LOC: HWRAD 07:36 | PROVIDERS: ATTENDING PHYSICIAN Internal Medicine Hematology & Oncology; FAMILY PHYSICIAN Family Medicine | DX: C25.0 Malignant neoplasm of head of pancreas (principal); D64.9 Anemia, unspecified; C79.62 Secondary malignant neoplasm of left ovary; C79.61 Secondary malignant neoplasm of right ovary; R91.1 Solitary pulmonary nodule; C78.02 Secondary malignant neoplasm of left lung | CPT/HCPCS: 71250 ==

== ENCOUNTER → 2025-03-06 14:00 | Outpatient (REF) | payer BC, SELFPAY | LOC: RCS 14:00 | PROVIDERS: ATTENDING PHYSICIAN Internal Medicine Hematology & Oncology; FAMILY PHYSICIAN Family Medicine | DX: C25.0 Malignant neoplasm of head of pancreas (principal); D64.9 Anemia, unspecified; C79.62 Secondary malignant neoplasm of left ovary; C79.61 Secondary malignant neoplasm of right ovary; R91.1 Solitary pulmonary nodule; C78.02 Secondary malignant neoplasm of left lung | CPT/HCPCS: 93306; 93356 ==

== ENCOUNTER → 2025-03-14 08:06 | Outpatient (REF) | payer BC, SELFPAY | LOC: PET 08:06 | PROVIDERS: ATTENDING PHYSICIAN Internal Medicine Hematology & Oncology | DX: C25.0 Malignant neoplasm of head of pancreas (principal) | CPT/HCPCS: 78815; A9552 ==

== ENCOUNTER → 2025-03-22 09:10 | Outpatient (REF) | payer BC, SELFPAY ==
[2025-03-22 09:35] VITALS: BP 130/78; BP_SYST 80
[2025-03-22 09:40] VITALS: BP 130/78
[2025-03-22 09:49] VITALS: BP 143/77; BP_SYST 77
== END ==
LOC: RADI 09:10
PROVIDERS: ATTENDING PHYSICIAN Internal Medicine Hematology & Oncology; FAMILY PHYSICIAN Family Medicine
DX: C25.0 Malignant neoplasm of head of pancreas (principal); J91.0 Malignant pleural effusion; R06.02 Shortness of breath; D63.0 Anemia in neoplastic disease; C69.61 Malignant neoplasm of right orbit; C79.61 Secondary malignant neoplasm of right ovary; C79.62 Secondary malignant neoplasm of left ovary; R91.1 Solitary pulmonary nodule; C78.02 Secondary malignant neoplasm of left lung
CPT/HCPCS: 32555; 71045; 88112; 88305; 88341; 88342

== ENCOUNTER → 2025-04-10 07:17 | Outpatient (REF) | payer BC, SELFPAY ==
[2025-04-10 08:05] LABS: Hematocrit 37.6 % (37.0-47.0); Hemoglobin 11.9 g/dL (12.0-16.0); Mean Corp Hgb Conc. 31.6 g/dL (33.0-37.0); Mean Corpuscular Volume 88.3 fL (81.0-99.0); Nucleated Red Blood Cells % 0 %; Platelet Count 315 10^3/uL (130-400); Red Cell Dist. Width 22.5 % (11.5-14.5)
[2025-04-10 08:34] LABS: ALT (SGPT) 20 U/L (0-35); AST (SGOT) 22 U/L (14-36); Albumin 4.6 g/dl (3.5-5.0); Alkaline Phosphatase 140 U/L (38-126); Blood Urea Nitrogen 12 mg/dl (7-17); Calcium 9.1 mg/dl (8.4-10.2); Carbon Dioxide 25 mmol/L (22-30); Chloride 103 mmol/L (98-107); Glucose 86 mg/dl (70-99); Potassium 4.8 mmol/L (3.5-5.1); Sodium 135 mmol/L (135-145); Total Protein 7.1 g/dl (6.3-8.2); eGFR > 60.00
[2025-04-10 08:43] LABS: Anisocytosis Slight; Normal RBC Morphology No; Ovalocytes Slight
== END ==
LOC: REG 07:17
PROVIDERS: ATTENDING PHYSICIAN Internal Medicine Hematology & Oncology; FAMILY PHYSICIAN Family Medicine
DX: C25.0 Malignant neoplasm of head of pancreas (principal); D64.9 Anemia, unspecified; C79.62 Secondary malignant neoplasm of left ovary; C79.61 Secondary malignant neoplasm of right ovary; R91.1 Solitary pulmonary nodule; C78.02 Secondary malignant neoplasm of left lung; K56.691 Other complete intestinal obstruction; D50.9 Iron deficiency anemia, unspecified
CPT/HCPCS: 36415; 80053; 85025

== ENCOUNTER → 2025-06-13 11:02 | Outpatient (REF) | payer BC, SELFPAY | LOC: RAD 11:02 | PROVIDERS: ATTENDING PHYSICIAN Internal Medicine Hematology & Oncology; FAMILY PHYSICIAN Family Medicine | DX: C25.0 Malignant neoplasm of head of pancreas (principal); C78.02 Secondary malignant neoplasm of left lung; K56.691 Other complete intestinal obstruction; D64.9 Anemia, unspecified | CPT/HCPCS: 71260; 74177; Q9967 ==

== ENCOUNTER → 2025-07-09 10:22 | Outpatient (REF) | payer BC, SELFPAY ==
[2025-07-09 11:00] LABS: Hematocrit 31.1 % (37.0-47.0); Hemoglobin 10.2 g/dL (12.0-16.0); Mean Corp Hgb Conc. 32.8 g/dL (33.0-37.0); Mean Corpuscular Volume 92.8 fL (81.0-99.0); Nucleated Red Blood Cells % 0 %; Platelet Count 373 10^3/uL (130-400); Red Cell Dist. Width 14.9 % (11.5-14.5)
[2025-07-09 11:12] LABS: D-Dimer 1.19 ug/mlFEU (0.00-0.50)
[2025-07-09 11:31] LABS: ALT (SGPT) 38 U/L (0-35); AST (SGOT) 29 U/L (14-36); Albumin 3.9 g/dl (3.5-5.0); Alkaline Phosphatase 129 U/L (38-126); Blood Urea Nitrogen 12 mg/dl (7-17); Calcium 9.0 mg/dl (8.4-10.2); Carbon Dioxide 27 mmol/L (22-30); Chloride 100 mmol/L (98-107); Glucose 117 mg/dl (70-99); Potassium 4.8 mmol/L (3.5-5.1); Sodium 131 mmol/L (135-145); Total Protein 6.6 g/dl (6.3-8.2); eGFR > 60.00
== END ==
LOC: REG 10:22
PROVIDERS: ATTENDING PHYSICIAN Nurse Practitioner Adult Health
DX: C25.0 Malignant neoplasm of head of pancreas (principal); D64.9 Anemia, unspecified; C79.62 Secondary malignant neoplasm of left ovary; C79.61 Secondary malignant neoplasm of right ovary; R91.1 Solitary pulmonary nodule; C78.2 Secondary malignant neoplasm of pleura; K56.691 Other complete intestinal obstruction; D50.9 Iron deficiency anemia, unspecified
CPT/HCPCS: 36415; 71046; 80053; 85025; 85379

== ENCOUNTER 2025-07-20 21:47 | Inpatient (IN) | payer BC, MEDICARE, SELFPAY ==
[2025-07-20 14:15] VITALS: BP 118/80
[2025-07-20 14:41] LABS: Hematocrit 33.9 % (37.0-47.0); Hemoglobin 11.5 g/dL (12.0-16.0); Mean Corp Hgb Conc. 33.9 g/dL (33.0-37.0); Mean Corpuscular Volume 88.1 fL (81.0-99.0); Nucleated Red Blood Cells % 0 %; Platelet Count 479 10^3/uL (130-400); Red Cell Dist. Width 14.6 % (11.5-14.5)
[2025-07-20 14:55] LABS: ALT (SGPT) 35 U/L (0-35); AST (SGOT) 45 U/L (14-36); Albumin 4.2 g/dl (3.5-5.0); Alkaline Phosphatase 128 U/L (38-126); Blood Urea Nitrogen 16 mg/dl (7-17); Calcium 8.9 mg/dl (8.4-10.2); Carbon Dioxide 23 mmol/L (22-30); Chloride 94 mmol/L (98-107); Glucose 134 mg/dl (70-99); Potassium 5.0 mmol/L (3.5-5.1); Sodium 127 mmol/L (135-145); Total Protein 6.8 g/dl (6.3-8.2); eGFR > 60.00
[2025-07-20 14:58] LABS: COVID-19 Antigen Negative (Negative)
--- NOTE | 2025-07-20 16:25 | ED.GENMED ---
History of Present Illness
General
Chief Complaint: Fever
Source: patient
Exam Limitations: none
Time Seen by Provider: 07/20/25 16:14
History of Present Illness
History of Present Illness:
Patient with a history of pancreatic CA on chemotherapy presents with myalgias fever some shortness of breath and mild twitching pain to her left lateral chest. She received chemotherapy days ago. Had a steroid injection at that time. Typically
has some nausea and vomiting after these treatments. Feels better now than she did earlier today.
Past History
Past History
ED Past Medical History: Cancer (Pancreatic) and GERD
ED Past Surgical History: Cholecystectomy, Gynecological, Orthopedic and Other (Whipple)
Social History
Tobacco: Former smoker
Alcohol: None
Drug: None
Personal:
Living: with family
Phy Exam
Physical Exam
Physical Exam:
GENERAL: Alert and oriented. Somewhat frail but nontoxic slight erythema to both cheeks
EYE: Orbits normal.
NECK: Supple, no significant adenopathy.
ENT: Pharynx without erythema
CARDIAC: Regular rate and rhythm without any obvious murmurs. Port in place and appears well
LUNGS: Clear breath sounds,normal
ABDOMEN: Soft, without focal tenderness or distention. Old scar
NEUROLOGICAL: Alert and oriented , grossly non-focal
SKIN: Warm and dry, no rash or lesion, no discoloration, skin intact.
MUSCULOSKELETAL: No edema,no deformity.Good color
PSYCH: Normal and appropriate interaction.
Sepsis
Sepsis Screening
Sepsis Assessment: Sepsis Ruled Out
Sepsis Screen
Sepsis Screen: Sepsis Ruled Out
Date: 07/22/25
Time: 06:09
Course
Orders/Labs/Results
Orders:
Orders
07/20/25 14:29
COVID-19 Antigen Urgent
Source: Nasal Swab
Complete Blood Count/With Diff Urgent
Comprehensive Metabolic Panel Urgent
Lactic Acid Q4H
Comment: ON ICE, CANCEL 2ND ORDER IF FIRST LACTIC ACID LEVEL <2
Blood Culture Q20M
VANESSA Source: Blood/Venous
Specimen Description:
Comment: Urgent from separate sites. If patient screens positive for possible sepsis
INF RAPID [Influenza A+B Rapid Molecular] Urgent
VANESSA Source: Nasal Swab
Specimen Description:
07/20/25 16:25
CT Chest PE Study Urgent
Comment:
Reason For Exam: Pancreatic CA/short of breath
IV Insert/Care/Rem.- Treatment PRN
0.9% Sodium Chloride 500 ml [Nss] 500 ml IV BOLUS
07/20/25 17:11
Blood Culture Q20M
VANESSA Source: Blood/Venous
Specimen Description:
Comment: Urgent from separate sites. If patient screens positive for possible sepsis
07/20/25 17:26
Urinalysis Reflex To Culture Urgent
Date Specimen was Collected: 07/20/25
Time Specimen was Collected: 17:19
Urine Microscopic Reflex Cult Urgent
Urine Culture Urgent
VANESSA Source: U
Specimen Description:
Date Specimen was Collected: 07/20/25
Time Specimen was Collected: 17:19
07/20/25 18:10
Acetaminophen [Tylenol] 650 mg PO NOW STA
07/20/25 20:10
Aztreonam [Azactam] 2,000 mg IV NOW STA
07/20/25 20:12
Vancomycin 1 Gram/200 ml [Vancocin] 1 gram in 200 ml IV NOW
07/20/25 20:22
Sterile Water [Sterile Water For Injection] 10 ml .ROUTE .[facility]
07/20/25 20:57
Admit/Transfer Patient As Directed
Co-Sign Provider:
Level of Care: Inpatient admission
Assign to:: Telemetry
Physician / Group: Kurt
Diagnosis: Fever
Reason for Telemetry: Arrhythmia
Date to Stop Telemetry: 07/23/25
Time to Stop Telemetry: 11:00
Reason for Hospitalization: Fever
Expected length of stay greater than two midnights?: Yes
ELOS- Estimated Length of Stay in days: 4
I certify the patient meets the requirements for IP care: Yes
PRN Pain Medication Management As Directed
May give lesser potent ordered pain med per pt: Yes
preference::
Protocol:: Medication orders for pain may be administered in a
manner that supports deferring to patient preference
when the pt is:
- Requesting an ordered lesser potent pain medication.
Least to most potent pain medications are defined
as: acetaminophen < NSAID < tramadol < opioids
(morphine, oxycodone, hydromorphone).
- Requesting a lesser dose of the same medication IF
ORDERED.
- Requesting a less intrusive route of administration
if both routes are prescribed by the provider (PO <
IV).
07/20/25 20:59
Code Status As Directed
Resuscitation Status: Full Code
07/21/25 00:09
0.9% Sodium Chloride 1000 ml [Nss] 1,000 ml IV 100 mls/hr
Acetaminophen [Tylenol] 650 mg PO Q4HPRN PRN
Albuterol Nebs [Ventolin Nebules] 2.5 mg INH R Q4HPRN PRN
Ondansetron Injectable [Zofran] 4 mg IV Q6HPRN PRN
VANCOMYCIN Pharmacy to Dose [VANCOCIN Pharmacy to Dose] 1 each Pharmacy To Prepare [Call Pharmacy To Prepare] 0 ml IV PER PROTOCOL
07/21/25 00:09
Activity As Directed
Activity Level: Ambulate
With Assistance
Bladder Scan As Directed
Follow Bladder Retention/Intermittent Cath Algorithm?: Yes
PRN if no void in __ hours: 6
Frequency: Per Retention Algorithm
If Bladder Scan Result >: 400
then:: Straight cath
EKG with chest pain [ECG as needed] As Directed
ECG as needed for:: Chest Pain
I/O [Intake/ Output] As Directed
Frequency: Per unit guidelines
Straight Cath As Directed
Frequency: Per Retention Algorithm
Additional Instructions: straight cath as needed per acute urinary retention algorithm for 24 hrs
Additional Instructions: for bladder scan greater than 400 mL
Vital Signs As Directed
Frequency: Per unit guidelines
Weight As Directed
Frequency: Daily
Oxygen Therapy [O2 Therapy] [RESP] Routine
Titrate/Wean O2 to maintain O2 sat greater than (%): 94
DX Deep Vein Thrombosis Video Routine
07/21/25 02:00
Cefepime HCl [Maxipime] 1,000 mg IV Q6H
07/21/25 Breakfast
Regular
At Your Request: Limited Participation
07/21/25 07:30
Pancrelipase [Zenpep Delayed Release Capsule] 1 capsule PO AC
07/21/25 08:00
Gabapentin [Neurontin] 300 mg PO DAILY
Pantoprazole [Protonix] 40 mg PO DAILY
Polyethylene Glycol 3350 [Gavilax] 17 gm PO DAILY
07/21/25 08:18
Complete Blood Count/No Diff IN AM
07/21/25 18:00
Enoxaparin Sodium [Lovenox] 40 mg SC QPM
07/23/25 11:00
DC Protocol for Telemetry ONCE
Abnormal Lab Results
07/20/25 07/20/25
14:29 17:26
RBC 3.85 L 10^6/uL
(4.20-5.40)
Hgb 11.5 L g/dL
(12.0-16.0)
Hct 33.9 L %
(37.0-47.0)
RDW 14.6 H %
(11.5-14.5)
Plt Count 479 H 10^3/uL
(130-400)
Absolute Neuts (auto) 9.3 H 10^3/uL
(1.4-6.5)
Absolute Lymphs (auto) 0.2 L 10^3/uL
(1.2-3.4)
Neutrophils % 95.4 H %
(42.2-75.2)
Lymphocytes % 2.3 L %
(20.5-51.1)
Monocytes % 1.5 L %
(1.7-9.3)
Sodium 127 L mmol/L
(135-145)
Chloride 94 L mmol/L
(98-107)
Glucose 134 H mg/dl
(70-99)
AST 45 H U/L
(14-36)
Alkaline Phosphatase 128 H U/L
(38-126)
Urine Bacteria (Reflex) Few A
(Negative)
Urine Albumin (Reflex) 1+ A
(Neg - Trace)
07/20/25 14:29
07/20/25 14:29
Vital Signs
Initial and Last Documented VS:
Initial Vital Signs
Temp Pulse Resp BP Pulse Ox
99.8 F 127 24 118/80 94
07/20/25 14:15 07/20/25 14:15 07/20/25 14:15 07/20/25 14:15 07/20/25 14:15
Last Documented Vital Signs
Temp Pulse Resp BP Pulse Ox
97.8 F 82 16 112/66 96
07/22/25 03:46 07/22/25 03:46 07/22/25 03:46 07/22/25 03:46 07/22/25 03:46
MDM/Problems Addressed
Differential Diagnosis Includes:
Large differential from viral syndrome to bacteremia to pulmonary emboli to pneumonia or UTI. Workup in progress
*Radiology
Radiology exam reviewed: radiology read reviewed (Progressive left hemothorax pleural thickening and nodularity. Atelectasis in the base.)
*Pulse Oximetry
SaO2: 94
Oxygen Mode of Delivery: Room air
Patient hypoxic: no
*Critical Care Note
Total Time (30-74mins, 75-104mins- exclusive of procedures): Not Applicable
Update Note
Update Note:
Patient with some changes in the left lung base but do not necessarily explain her fever. She has still has a port. Temperature 101.6 here. Given her chemotherapy immunocompromise state warrants antibiotic coverage pending cultures
ED Attending Note
-
Portions of this chart may have been created with voice recognition software.� Occasional wrong word or��sound alike� substitutions may have occurred due to the inherent limitations of voice recognition software.
Discharge Plan
Departure
Patient Disposition: Admit
Date of Disposition: 07/20/25
Time of Disposition: 20:15
Presentation/result/management discussed w/ accepting MD/DO: Hospitalist
Discharge Problem:
Fever on chemotherapy, Hyponatremia, History of pancreatic CA
Interventions
Interventions:
*Risk Screen - Suicide Last Done: 07/20/25 14:15
*General Assessment Last Done: 07/21/25 00:09
*Neglect/Abuse Screening Last Done: 07/21/25 00:09
*ED COVID-19 Vaccine History Last Done: 07/20/25 14:15
*ED Influenza Vaccine History Last Done: 07/20/25 14:15
*Nursing Disposition Last Done: 07/21/25 00:09
ED- Neurological Assessment Last Done: 07/20/25 18:10
ED-Skin Assessment Last Done: 07/20/25 18:10
Discharge Date and Time
Discharge Date/Time: 07/21/25 00:12
[2025-07-20] MEDS: NSS 500 IV (17:19)
[2025-07-20 18:01] LABS: Urine Character Clear (Clear)
[2025-07-20] MEDS: TYLENOL 650 MG PO (18:12)
[2025-07-20 19:28] LABS: Urine Red Blood Cell 0-2 /HPF (0-2); Urine Squamous Cell 0-2 /LPF (Few); Urine White Cell 0-2 /HPF (0-5)
[2025-07-20] MEDS: AZACTAM 2000 MG IV (20:26)
[2025-07-20] MEDS: VANCOCIN 200 IV (21:00)
[2025-07-20 21:02] VITALS: BMI 19.4
--- NOTE | 2025-07-20 21:07 | HPS.HSE ---
Family Physician
-
Family Physician: Myesha Hall
Chief Complaint
-
Fever, SOB
History of Present Illness
Patient is a 75y F with PMH significant for pancreatic cancer metastatic to the L lung / pleura who presents to ED complaining of fever and SOB. Patient states that she had fever and respiratory symptoms about 2 weeks ago. Diagnosed with viral
URI at that time and her symptoms seemed to be improving. She had chemotherapy this past Wednesday and - following that - her symptoms recurred. Today she felt very fatigued with increased SOB, mild headache and noted fever. She presented to the
ED for further evaluation.
Patient complains of L lateral chest discomfort that is worse with cough or deep breathing. She has a mild / occasional non-productive cough. No GI or complaints.
Medical History
Past Medical History
Past Medical History: Reports Other
Additional Past Medical History:
Pancreatic cancer
Rheumatoid arthritis
Hyperlipidemia
Osteoporosis
GERD
DVT
Psoriasis
Severe protein calorie malnutrition
Internal hemorrhoids
Past Surgical History: Reports Other
Additional Past Surgical History:
Whipple procedure 2021
Cholecystectomy at time of Whipple
DELMAR/BSO 2023
T&A
Social History
Tobacco: Former Smoker
Alcohol: Daily
Drug: None
Personal:
Living: With Family
Employment: Employed
Family History
Family History: Not pertinent
Allergies / Home Medications
Allergies reflects when Allergies were last updated in [employer].
Home Medications with original date entered in [employer]
Allergy/Medication List:
Allergies
Allergy/AdvReac Type Severity Reaction Status Date / Time
hydroxychloroquine Allergy Rash Verified 07/20/25 14:15
Penicillins Allergy nausea/dizz Verified 07/20/25 14:15
iness
Home Medications
lansoprazole 30 mg capsule,delayed release 30 mg PO DAILY Gastrointestinal Issue 12/10/22
cdepet-dyboddgo-oyhqqf(pork)24,000-76,000-120,000 unit capsule,del rel (Creon) 1 cap PO AC Gastrointestinal Issue 05/11/24
denosumab 60 mg/mL subcutaneous syringe (Prolia) 60 mg SC [id number] [facility] 09/28/24
gabapentin 300 mg capsule 300 mg PO DAILY Neurological Condition 09/28/24
polyethylene glycol 3350 17 gram/dose oral powder (Miralax) 17 g PO DAILY Gastrointestinal Issue 09/28/24
lorazepam 0.5 mg tablet 0.5 mg PO HSPRN PRN anxiety 12/22/24
ascorbic acid (vitamin C) 500 mg tablet (Vitamin C) 500 mg PO DAILY Supplement 07/20/25
therapeutic multivitamin 1 tab PO DAILY Supplement 07/20/25
Review of Systems
-
History Source: Patient
A 12 point ROS was completed and negative except as noted: Yes
Constitutional: Reports Fever and Fatigue; Denies Chills
EENT: Denies Sore Throat or Runny Nose
Respiratory: Reports Cough and Trouble Breathing; Denies Hemoptysis
Cardiac: Reports Chest Pain (L lateral); Denies Diaphoresis or Palpitations
Abdomen/GI: Denies Abdominal Pain, Nausea, Vomiting or Diarrhea
: Denies Dysuria, Frequency or Flank Pain
Musculoskeletal: Denies Joint Pain or Edema
Neurological: Reports Headache; Denies Dizzy, Weakness or Numbness
Psych: Denies Depression or Anxiety
Physical Exam
Vital Signs
Vital Signs
Temp Pulse Resp BP Pulse Ox
101.6 F H 127 24 118/80 94
07/20/25 18:08 07/20/25 14:15 07/20/25 14:15 07/20/25 14:15 07/20/25 16:25
Physical Exam
General: Other (75y F in no acute distress.)
HEENT: Moist mucous membranes and PERRLA
Respiratory: Other (Decreased BS > 1/2 up on the L. No focal rales / rhonchi.)
Cardiac: S1/S2, Regular Rhythm and Murmur (II/ PROSPER)
GI: Soft, Non Tender, Non Distended and Normal Bowel Sounds
Musculoskeletal: No Clubbing, No Cyanosis and No Edema
Neuro: AO x 3
Laboratory Results
-
07/20/25 14:29
07/20/25 14:29
Laboratory Results
Lactic Acid Cancelled 07/20/25 18:30
Total Bilirubin 0.8 mg/dl (0.2-1.3) 07/20/25 14:29
AST 45 U/L (14-36) H 07/20/25 14:29
ALT 35 U/L (0-35) 07/20/25 14:29
Alkaline Phosphatase 128 U/L (38-126) H 07/20/25 14:29
Impression/Plan
-
A/P: Patient is a 75y F with PMH significant for pancreatic cancer on chemotherapy who presents to ED complaining of fever, fatigue and SOB.
Fever
- Admit for further evaluation and treatment.
- No currently neutropenic despite malignancy / chemo.
- Only recent focal complaints are respiratory in nature and ? secondary to malignancy / pleural changes > infection.
- Continue empiric abx for now.
- Follow fever curve. Monitor for any new / focal symptoms.
- Follow-up culture data.
- ID evaluation for additional recommendations.
Left Pleural Effusion
- Increased pleural thickening / fluid / etc from most recent images.
- Given fever, will ask IR for repeat thoracentesis to do culture / rule out infection.
- Supportive care including O2 support, pain control if needed, etc.
Acute on Chronic Hyponatremia
- Seems most likely SIADH due to malignancy / lung changes.
- Baseline appears to be in the low 130s.
- NSS overnight given fever / tachycardia. Follow for changes.
- Consider Nephrology evaluation if no significant improvement.
Metastatic Pancreatic Cancer
- Currently on chemotherapy with most recent dose on Wednesday.
- Not currently neutropenic. Follow for changes.
- L sided pleural changes / effusion felt to be metastatic / malignant in origin.
- Follow-up with Oncology after discharge.
DVT Prophylaxis: Lovenox
Code Status: Full
[2025-07-20 22:00] VITALS: BP 92/56
[2025-07-20 23:00] VITALS: BP 90/56
[2025-07-21] VITALS (9 sets, daily range): BP systolic 92–127; BP diastolic 55–66; BMI 18.6
--- NOTE | 2025-07-21 00:10 | PTCARENOTE ---
Pt received from ED to 417-1. Pt oriented to room and call mathews.
--- NOTE | 2025-07-21 00:41 | PHA.VAN.IN ---
Assessment
- Assessment
Renal Function: SCR Appears Elevated from baseline (BASELINE SCR ~0.4 MG/DL)
Maximum Temperature: 101.6 F
Concomitant Antimicrobials: CEFEPIME
Plan
- Plan
Initial / Loading Dose: VANCO 1000MG X1
Monitoring: RANDOM 07/21 @0600
MRSA Screen: Ordered per protocol
Pharmacokinetics Vancomycin I
- -
Patient Age: 75
Patient Sex: Female
Vancomycin Day #: 1
Indication: Pulmonary/Respiratory
Requesting Provider: DR. ALVAREZ
Pertinent Antimicrobial Allergies:
PENICILLIN (NAUSEA/DIZZINESS)
Height / Weight:
Height 5 ft 1 in
Actual Weight 44.537 kg
Pertinent Past Medical History: BMI 18, METASTATIC PANCREATIC CANCER
- Vital Signs / Lab Results
Temp Pulse Resp BP Pulse Ox
98.4 F 92 18 102/63 97
07/21/25 00:23 07/21/25 00:23 07/21/25 00:23 07/21/25 00:23 07/21/25 00:23
Lab Results - Hematology
07/20/25
14:29
WBC 9.8
Lab Results - Chemistry
07/20/25
14:29
BUN 16
Creatinine 0.6
Albumin 4.2
07/20/25 07/20/25
14:29 18:30
Lactic Acid 1.1 Cancelled
Lab Results - Urine
07/20/25
17:26
Urine Nitrite (Reflex) Negative
Leukocyte Esterase Rfl Negative
Urine WBC (Reflex) 0-2
Ur Squamous Epith Cells 0-2
Urine Bacteria (Reflex) Few A
Microbiology Results
07/20/25 14:29 Influenza Types A & B (KEISHA) - Final
Nasal Swab Negative for Influenza A & B, NAAT
Negative results must be combined with clinical observations
and patient history.
Nucleic Acid Amplification test (NAAT)performed on the
[employer] platform.
[2025-07-21] MEDS: NSS 1000 IV ×3 (00:46→21:21)
[2025-07-21] MEDS: MAXIPIME 1000 MG IV ×4 (01:03→21:20)
[2025-07-21] MEDS: STERILE WATER FOR INJECTION 10 ML IV ×4 (01:03→21:21)
--- NOTE | 2025-07-21 07:34 | CON.ONC ---
Consultation
-
Date Consultation Requested: 07/21/25
Date Consultation Performed: 07/21/25
Requesting Provider: Ximena
Performing Provider: Aleksandr
Reason for Consultation: non-neutropenic fever/ st 4 pancreatic caner
Impression
Impression
Nonneutropenic fever status post cycle 9 salvage Abraxane gemcitabine for progressive stage IV pancreatic carcinoma with pleural involvement left lung
Plan
Plan
Currently she looks well without hemodynamic instability. We discussed the need to exclude bacteremia. Blood cultures were obtained at 14:29 and 17:11 on 07/20. Would continue current antibiotic therapy with plans for discharge to tomorrow
evening if at 48 hours there is no evidence of bacteremia of any source. She has an appointment with Dr. Hall scheduled for Wednesday the day following tentative discharge.
Patient History
History of Present Illness
Fever and chills 0348 hrs. following cycle 9 chemotherapy Abraxane Gemzar
75-year-old white female first diagnosed with painless jaundice April 2021 a with a mass in the head of the pancreas for which fine-needle biopsy noted T3 N0 pancreatic carcinoma requiring placement of a covered metal stent initial staging
showed no evidence of metastatic disease she received FOLFIRINOX therapy completing August 2021 in the neoadjuvant setting followed by Whipple procedure 10/02/2021 for which a complete pathologic response was noted for which she was then opted
observation due to poor tolerance to chemotherapy Enhertu therapy was initiated due to HER2 positivity of the prior specimen of 2022 2023 therapy was initiated 10/04/2024. There was a break in therapy in December 2024 for hospitalization with resection
of small bowel due to obstruction from adhesions she underwent thoracentesis in March 2025 for which adenocarcinoma was noted on fluid analysis. She currently is receiving Abraxane gemcitabine for which she received her ninth treatment 07/18/2025.
She notes sudden onset of the fever with about a clear sign of infection insofar as she does not have discolored sputum production, dysuria, diarrhea or rash/open wound.
Past-Medical/Surgical History
Cataract extraction 04/28/2020; removal of a right hand cyst 2017; acquired pancreatic insufficiency; GERD; anxiety
Patient Medication
�Medication �Instructions �Recorded �Confirmed �Last Taken �Type
lansoprazole 30 mg capsule,delayed 30 mg PO DAILY Gastrointestinal 12/10/22 07/21/25 07/20/25 History
release Issue
tdfdlv-pisnlole-autpid(pork)24,000-76,000-120,000 1 cap PO AC Gastrointestinal Issue 05/11/24 07/21/25 07/20/25 History
unit capsule,del rel (Creon)
denosumab 60 mg/mL subcutaneous 60 mg SC [id number] [facility] 09/28/24 07/21/25 08/16/24 History
syringe (Prolia)
gabapentin 300 mg capsule 300 mg PO DAILY Neurological 09/28/24 07/21/25 07/20/25 History
Condition
polyethylene glycol 3350 17 17 g PO DAILY Gastrointestinal 09/28/24 07/21/25 01/08/25 History
gram/dose oral powder (Miralax) Issue
lorazepam 0.5 mg tablet 0.5 mg PO HSPRN PRN anxiety 12/22/24 07/21/25 Unknown History
ascorbic acid (vitamin C) 500 mg 500 mg PO DAILY Supplement 07/20/25 07/21/25 07/20/25 History
tablet (Vitamin C)
therapeutic multivitamin 1 tab PO DAILY Supplement 07/20/25 07/21/25 07/20/25 History
Active Medications
Generic Name Dose Route Start Last Admin
Trade Name Freq PRN Reason Stop Dose Admin
Acetaminophen 650 mg 07/21/25 00:09
Acetaminophen 325 Mg Tablet PO 08/18/25 00:08
Q4HPRN PRN
Mild Pain / Temp > 101
Albuterol Sulfate 2.5 mg 07/21/25 00:09
Albuterol Nebs 2.5 Mg/3 Ml Ampul INH
R Q4HPRN PRN
SOB
Protocol
Cefepime HCl 1,000 mg 07/21/25 02:00 07/21/25 01:03
Cefepime Hcl 1,000 Mg/11.3 Ml Vial IV 1,000 mg
Q6H GEOFF Administration
Enoxaparin Sodium 40 mg 07/21/25 18:00
Enoxaparin Sodium 40 Mg/0.4 Ml Syringe SC 08/18/25 17:59
QPM GEOFF
Gabapentin 300 mg 07/21/25 08:00
Gabapentin 300 Mg Capsule PO 08/18/25 07:59
DAILY GEOFF
Sodium Chloride 1,000 mls @ 100 mls/hr 07/21/25 00:09 07/21/25 00:46
Nss IV 1,000 mls
.Q10H GEOFF Administration
Vancomycin HCl 1 each/ Device 0 mls @ 0 mls/hr 07/21/25 00:09
IV
PER PROTOCOL GEOFF
As Directed
Ondansetron HCl 4 mg 07/21/25 00:09
Ondansetron 4 Mg/2 Ml Vial IV 08/18/25 00:08
Q6HPRN PRN
nausea and vomiting
Pancrelipase 1 capsule 07/21/25 07:30
Pancrelipase (Zenpep) Delayed Release Capsule PO 08/18/25 07:29
AC GEOFF
Pantoprazole Sodium 40 mg 07/21/25 08:00
Pantoprazole 40 Mg Delayed Release Tablet PO 08/18/25 07:59
DAILY GEOFF
Polyethylene Glycol 17 grams 07/21/25 08:00
Polyethylene Glycol Powder 17 Grams Packet PO 08/18/25 07:59
DAILY GEOFF
Sodium Chloride 0 flush 07/21/25 01:00
Sodium Chloride 0.9% (Flush) Syringe IV 08/18/25 00:59
PER PROTOCOL GEOFF
Sterile Water 10 ml 07/21/25 02:00 07/21/25 01:03
Sterile Water For Injection 10 Ml Vial IV 08/18/25 01:59 10 ml
Q6H GEOFF Administration
Review of Systems
-
History Source: Patient and Family
All Other Systems: Reviewed and Negative
Physical Exam
-
General: Well Developed
HEENT: Moist Mucous Membranes
Cardiology: Normal Sinus Rhythm
Pulmonary: Clear
GI: Soft and Normal Bowel Sounds
Extremities: Pulses Present
Neurology: Non Focal
Psych: Calm
Labs
Lab Results
WBC 9.8 10^3/uL (4.8-10.8) 07/20/25 14:
RBC 3.85 10^6/uL (4.20-5.40) L 07/20/25 14:
Hgb 11.5 g/dL (12.0-16.0) L 07/20/25 14:
Hct 33.9 % (37.0-47.0) L 07/20/25 14:
MCV 88.1 fL (81.0-99.0) 07/20/25 14:
MCH 29.9 pg (27.0-31.0) 07/20/25 14:
MCHC 33.9 g/dL (33.0-37.0) 07/20/25 14:
RDW 14.6 % (11.5-14.5) H 07/20/25 14:
Plt Count 479 10^3/uL (130-400) H 07/20/25 14:
MPV 8.8 fL (7.4-10.4) 07/20/25 14:
Abs Immat Gran (auto) 0.0 10^3/uL (0-0.05) 07/20/25 14:
Absolute Neuts (auto) 9.3 10^3/uL (1.4-6.5) H 07/20/25 14:
Absolute Lymphs (auto) 0.2 10^3/uL (1.2-3.4) L 07/20/25 14:29
Absolute Monos (auto) 0.2 10^3/uL (0.1-0.6) 07/20/25 14:29
Absolute Eos (auto) 0.0 10^3/uL (0-0.7) 07/20/25 14:29
Absolute Basos (auto) 0.0 10^3/uL (0-0.2) 07/20/25 14:29
Immature Gran % 0.4 % (0-0.5) 07/20/25 14:29
Neutrophils % 95.4 % (42.2-75.2) H 07/20/25 14:
Lymphocytes % 2.3 % (20.5-51.1) L 07/20/25 14:29
Monocytes % 1.5 % (1.7-9.3) L 07/20/25 14:29
Eosinophils % 0.2 % (0-6) 07/20/25 14:
Basophils % 0.2 % (0-2) 07/20/25 14:29
Creatinine 0.6 mg/dL (0.6-1.0) 07/20/25 14:29
Vital Signs
Vital Signs
Temp Pulse Resp BP Pulse Ox
98.7 F 84 18 95/57 94
07/21/25 03:18 07/21/25 03:18 07/21/25 03:18 07/21/25 03:18 07/21/25 03:18
[2025-07-21] MEDS: MIRALAX 17 GRAMS PO (07:56)
[2025-07-21] MEDS: ZENPEP DELAYED RELEASE CAPSULE 1 CAPSULE PO ×3 (07:56→17:36)
[2025-07-21] MEDS: PROTONIX 40 MG PO (07:56)
[2025-07-21] MEDS: NEURONTIN 300 MG PO (07:56)
[2025-07-21 08:42] LABS: Hematocrit 30.9 % (37.0-47.0); Hemoglobin 10.3 g/dL (12.0-16.0); Mean Corp Hgb Conc. 33.3 g/dL (33.0-37.0); Mean Corpuscular Volume 90.6 fL (81.0-99.0); Platelet Count 404 10^3/uL (130-400); Red Cell Dist. Width 14.6 % (11.5-14.5)
[2025-07-21 09:21] LABS: ALT (SGPT) 34 U/L (0-35); AST (SGOT) 41 U/L (14-36); Albumin 3.3 g/dl (3.5-5.0); Alkaline Phosphatase 106 U/L (38-126); Blood Urea Nitrogen 11 mg/dl (7-17); Calcium 7.9 mg/dl (8.4-10.2); Carbon Dioxide 23 mmol/L (22-30); Chloride 100 mmol/L (98-107); Estimated Creatinine Clearance 59 ml/min; Glucose 81 mg/dl (70-99); LDH 283 U/L (120-246); Potassium 4.9 mmol/L (3.5-5.1); Sodium 128 mmol/L (135-145); Total Protein 5.8 g/dl (6.3-8.2); eGFR > 60.00
--- NOTE | 2025-07-21 11:08 | PHA.VAN.FU ---
Vancomycin Assessment / Plan
- Assessment
Renal Function: Stable
WBC's are: WNL
Concomitant Antimicrobials: cefepime
- Assessment - Therapeutic Drug Monitoring
Random Level: 5.9 - drawn ~9H after 1000mg loading dose
- Dosing Plan
Adjust Regimen to: Vanc 1000mg Q24H - first dose today then 0600
New Regimen Predicts: AUC (542), Peak (40.2), Trough (10.9)
- Monitoring Plan
No level(s) ordered at this time: consider levels in next few days
- Follow Up
Pharmacy will continue to follow.
Vancomycin Follow UP
- -
Patient Age: 75
Patient Sex: Female
Vancomycin Day #: 2
Indication: Pulmonary/Respiratory
Requesting Provider: Dr. Hicks
Pertinent Antimicrobial Allergies:
penicillin - nausea / dizziness
Height / Weight:
Height 5 ft 1 in
Actual Weight 44.537 kg
IBW in k.8
Pertinent Past Medical History: BMI 18.6, metastatic pancreatic cancer
- Vital Signs / Lab Results
Temp Pulse Resp BP Pulse Ox
99.2 F 94 18 94/55 95
07/21/25 07:31 07/21/25 07:31 07/21/25 07:31 07/21/25 07:31 07/21/25 07:31
Lab Results - Hematology
07/20/25 07/21/25
14:29 08:18
WBC 9.8 5.6
Lab Results - Chemistry
07/20/25 07/21/25
14:29 08:18
BUN 16 11
Creatinine 0.6 0.5 L
Estimated Creat Clear 59
Albumin 4.2 3.3 L
07/20/25 07/20/25
14:29 18:30
Lactic Acid 1.1 Cancelled
Lab Results - Urine
07/20/25
17:26
Urine Nitrite (Reflex) Negative
Leukocyte Esterase Rfl Negative
Ur Squamous Epith Cells 0-2
Microbiology Results
07/21/25 01:30 Nasal Screen MRSA (PCR) - Final
Nose MRSA not detected - performed by PCR methodology.
07/20/25 14:29 Influenza Types A & B (KEISHA) - Final
Nasal Swab Negative for Influenza A & B, NAAT
Negative results must be combined with clinical observations
and patient history.
Nucleic Acid Amplification test (NAAT)performed on the
[employer] platform.
Therapeutic Drug Monitoring
Random Vancomycin 5.9 ug/ml 07/21/25 08:18
--- NOTE | 2025-07-21 11:27 | W.PN.HOSP.TC ---
Today's Communication/Plan
-
see plan
Assessment / Plan
Assessment / Plan
75y F with PMH significant for pancreatic cancer on chemotherapy who presents to ED complaining of fever, fatigue and SOB.
Gen: NAD, AAOx3.
Eyes: EOMI, PERRLA, no scleral icterus.
Neck: supple.
CV: RRR, +S1/S2, no m/r/g.
Resp: dec BS in L hemithorax
Abd: +BS, soft, NT, ND
Skin: No rashes.
Neuro: CN 2-12 intact, non-focal.
Psych: Normal mood and affect.
CTA chest: No PE. Progressive left hemithorax pleural thickening and nodularity as well as progressive left pleural effusion, suspicious for progressive metastatic disease. Mild atelectasis in the left lung base. Slightly more prominent 4.5 mm
pleural-based nodule in the superior segment of the right lower lobe: 2 small metastatic focus.
Fever:
-Not currently neutropenic despite malignancy/chemo
-only recent focal complaints are respiratory in nature and ? secondary to malignancy / pleural changes > infection.
-last fever 07/20/25PM
-currently on empiric Vanco/Cefepime
-ID c/s placed on admission
-follow BCxs
-unclear why UCx was sent as pt without urinary symptoms and U/A unremarkable
Left Pleural Effusion:
-imaging above
-IR c/s placed for Dx thoracentesis
Acute on Chronic Hyponatremia:
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
-has been on IVFs (would not give for SIADH), Na 128 from 127
-currently hypotensive
Metastatic Pancreatic Cancer:
-currently on chemotherapy with most recent dose on 07/18/25
-ONC c/s
Pt's updated at bedside.
FULL/Lovenox
Total time spent on today's encounter was 50 minutes which included time spent in counseling the patient/family regarding diagnosis and treatment plan as listed above, goals of care, and symptom management. Case was discussed with nursing staff,
specialists, and care coordinators/case management. All labs and imaging personally reviewed by me. Remainder the time spent in detailed review of previous records, lab data, imaging, and other medical provider documentation.
Anticipated Discharge: 24 - 48 hours
Subjective/Interval History
-
Date of Service: July 21, 2025
No new complaint.s
Objective Data
-
Labs:
Laboratory Results
07/21/25
08:18
WBC 5.6
Hgb 10.3 L
Hct 30.9 L
Plt Count 404 H
Sodium 128 L
Potassium 4.9
Chloride 100
Carbon Dioxide 23
BUN 11
Creatinine 0.5 L
Glucose 81
Calcium 7.9 L
Total Bilirubin 0.9
AST 41 H
ALT 34
Alkaline Phosphatase 106
Vital Signs:
Vital Signs
Temp Pulse Resp BP Pulse Ox
97.4 F 93 18 105/59 93
07/21/25 11:24 07/21/25 11:24 07/21/25 11:24 07/21/25 11:24 07/21/25 11:24
I&O
07/20/25 07/21/25 07/22/25
06:59 06:59 06:59
Intake Total 840 / 840
Balance 840 / 840
[2025-07-21] MEDS: VANCOCIN 200 IV (13:14)
--- NOTE | 2025-07-21 13:33 | CON.ID ---
Consultation
-
Date/Time Consultation Requested: 07/21/2025 00:09
Date/Time Consultation Performed: 07/21/2025 1330
Requesting Provider: Dr. Hicks
Performing Provider: Dr. Kee
Reason for Consultation: Fever; Hx pancreatic CA on chemo
Chief Complaint / Past History
History of Present Illness
Mariah Raines is a 75-year-old female with a significant past medical history of pancreatic cancer being evaluated at the request of Dr. Hicks regarding fever. History is obtained from chart review, along with patient interview.
The patient presented to [facility] yesterday afternoon secondary to myalgias, fever that had spiked to 102 degrees and SOB. She recently received chemotherapy (Abraxane, gemcitabine) on 07/18/2025. In the ER, the patient was found to
spike a temp to 101.6 degrees, although patient has been afebrile since admission.
Prior to admission she reported labored breathing and a slight cough with a small amount of sputum production. Since admission she notes that her temperature down although she still is quite fatigued. She admits to mild headache, but no neck
discomfort or stiffness. She denies any pharyngitis. She denies any chest pain. She denies any nausea, vomiting or diarrhea.
Past History
Additional Past Medical History:
Pancreatic cancer
Rheumatoid arthritis
Hyperlipidemia
Osteoporosis
GERD
DVT
Psoriasis
Severe protein calorie malnutrition
Internal hemorrhoids
Additional Past Surgical History:
Whipple procedure 2021
Cholecystectomy at time of Whipple
DELMAR/BSO 2023
T&A
Allergy History:
hydroxychloroquine Allergy (Verified 07/20/25 14:15)
Rash
Penicillins Allergy (Verified 07/20/25 14:15)
nausea/dizziness
Medications Reviewed: Yes
Current Antibiotics:
Vancomycin (dosing per pharmacy)
Cefepime 1 gm IV q.6 hours
Social History
Tobacco: Non-Smoker
Alcohol: None
Drug: None
Personal:
Living: With Family
Employment: Employed
Family History
Family History: Not Pertinent
Review of Systems
Vital Signs
Temp Pulse Resp BP Pulse Ox
97.4 F 93 18 105/59 93
07/21/25 11:24 07/21/25 11:24 07/21/25 11:24 07/21/25 11:24 07/21/25 11:24
Physical Exam
Physical Exam
Constitutional: No Acute Distress, Comfortable, Chronically Ill and Non-toxic
Head: Normocephalic
Eyes: Pupils Equal, Pupils Round, No Conjunctival Hemorrhage and Sclera Anicteric
Oral: No Thrush and No Ulcers
Cardiovascular: Regular Rate and S1/S2; Negative S3/S4
Pulmonary: Clear; Negative Wheezes or Rales
Gastrointestinal: Soft, Non Tender, Non Distended, Normal Bowel Sounds, No Rebound and No Guarding
Extremities: Negative Edema, Cyanosis or Erythema
Neurological: Awake, Alert and Oriented
Psychological: Calm
Lab / Diagnostic Study Results
07/21/25 08:18
07/21/25 08:18
Abs Immat Gran (auto) 0.0 10^3/uL (0-0.05) 07/20/25 14:29
Absolute Neuts (auto) 9.3 10^3/uL (1.4-6.5) H 07/20/25 14:29
Absolute Lymphs (auto) 0.2 10^3/uL (1.2-3.4) L 07/20/25 14:29
Absolute Monos (auto) 0.2 10^3/uL (0.1-0.6) 07/20/25 14:29
Absolute Basos (auto) 0.0 10^3/uL (0-0.2) 07/20/25 14:29
Immature Gran % 0.4 % (0-0.5) 07/20/25 14:29
Neutrophils % 95.4 % (42.2-75.2) H 07/20/25 14:29
Lymphocytes % 2.3 % (20.5-51.1) L 07/20/25 14:29
Monocytes % 1.5 % (1.7-9.3) L 07/20/25 14:29
Eosinophils % 0.2 % (0-6) 07/20/25 14:29
Basophils % 0.2 % (0-2) 07/20/25 14:29
Lactic Acid Cancelled 07/20/25 18:30
Ur Squamous Epith Cells 0-2 /LPF (Few) 07/20/25 17:26
Microbiology Results
Micro:
07/21/25 01:30 Nasal Screen MRSA (PCR) - Final
Nose MRSA not detected - performed by PCR methodology.
07/20/25 17:26 Urine Culture - Pending
Urine
07/20/25 17:11 Blood Culture - Pending
Blood/Venous
07/20/25 14:29 Influenza Types A & B (KEISHA) - Final
Nasal Swab Negative for Influenza A & B, NAAT
Negative results must be combined with clinical observations
and patient history.
Nucleic Acid Amplification test (NAAT)performed on the
[employer] NOW platform.
07/20/25 14:29 Blood Culture - Pending
Blood/Venous
Imaging:
07/10/2025 CT chest PE study: emphysematous changes noted in the lungs. Compressive atelectasis of the left lung base. No evidence to suggest pneumonia. No PE seen. Progressive left hemithorax pleural thickening and nodularity suspicious for
progressive metastatic disease. Please see full dictation for additional detail.
Assessment / Plan
Fever
Progressive fatigue
Pancreatic cancer s/p recent chemotherapy
Rheumatoid arthritis
Hyperlipidemia
Osteoporosis
GERD
DVT
Psoriasis
Recommendations:
Continue with empiric cefepime.
Discontinue further vancomycin.
Blood cultures are pending; will continue to monitor.
Follow white count and temperature curve.
Further recommendations as additional data is returned.
--- NOTE | 2025-07-21 15:35 | CM ---
CM reviewed chart, patient seen bedside, initial assessment completed.
Patient is a 75 year old Female with PMH significant for pancreatic cancer metastatic to the L lung / pleura who presents to ED complaining of fever and SOB
Patient resides with her in a three level home, few steps to enter.
Patient denies DME, reports independent with ADLs/IADLs.
Patient reports VN in past after surgery, believes was [place] VN. Denies SNF.
PCP Myesha Hall, Pharmacy [facility].
Patient denies insecurities at home.
CM will continue to follow.
Plan; home no needs anticipated
[2025-07-21] MEDS: LOVENOX 40 MG SC (17:36)
[2025-07-21] MEDS: TYLENOL 650 MG PO (20:00)
[2025-07-22] VITALS (7 sets, daily range): BP systolic 112–147; BP diastolic 66–85; BMI 19.2
[2025-07-22] MEDS: MAXIPIME 1000 MG IV ×4 (01:53→20:38)
[2025-07-22] MEDS: STERILE WATER FOR INJECTION 10 ML IV ×4 (01:54→20:38)
[2025-07-22] MEDS: NSS 1000 IV (07:26)
[2025-07-22] MEDS: NEURONTIN 300 MG PO (07:49)
[2025-07-22] MEDS: ZENPEP DELAYED RELEASE CAPSULE 1 CAPSULE PO ×3 (07:49→17:49)
[2025-07-22] MEDS: MIRALAX 17 GRAMS PO (07:49)
[2025-07-22] MEDS: PROTONIX 40 MG PO (07:49)
--- NOTE | 2025-07-22 11:02 | W.PN.HOSP.TC ---
Today's Communication/Plan
-
see plan
Assessment / Plan
Assessment / Plan
75y F with PMH significant for pancreatic cancer on chemotherapy who presents to ED complaining of fever, fatigue and SOB.
Gen: NAD, AAOx3.
Eyes: EOMI, PERRLA, no scleral icterus.
Neck: supple.
CV: remains RRR, +S1/S2, no m/r/g.
Resp: remains dec BS in L hemithorax
Abd: remains +BS, soft, NT, ND
Skin: No rashes.
Neuro: CN 2-12 intact, non-focal.
Psych: Normal mood and affect.
07/20/25 17:11 Blood/Venous Blood Culture - Preliminary
No Growth in 24 hours- Final report to follow
07/20/25 14:29 Blood/Venous Blood Culture - Preliminary
No Growth in 24 hours- Final report to follow
07/20/25 17:26 Urine Urine Culture - Final
07/21/25 01:30 Nose Nasal Screen MRSA (PCR) - Final
MRSA not detected - performed by PCR methodology.
07/20/25 14:29 Nasal Swab Influenza Types A & B (KEISHA) - Final
Negative for Influenza A & B, NAAT
Negative results must be combined with clinical observations
and patient history.
Nucleic Acid Amplification test (NAAT)performed on the
[employer] NOW platform.
CTA chest: No PE. Progressive left hemithorax pleural thickening and nodularity as well as progressive left pleural effusion, suspicious for progressive metastatic disease. Mild atelectasis in the left lung base. Slightly more prominent 4.5 mm
pleural-based nodule in the superior segment of the right lower lobe: 2 small metastatic focus.
Fever:
-Not currently neutropenic despite malignancy/chemo
-only recent focal complaints are respiratory in nature and ? secondary to malignancy / pleural changes > infection.
-last fever 07/20/25PM
-currently on empiric Cefepime as per ID
-follow BCxs (NGTD)
-unclear why UCx was sent as pt without urinary symptoms and U/A unremarkable, UCx with 15K mixed selin regardless
Left Pleural Effusion:
-imaging above
-IR c/s placed on admission for Dx thoracentesis
Acute on Chronic Hyponatremia:
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
-has been on IVFs (would not give for SIADH), Na 128 from 127
-was hypotensive, now BP improved
-Na pending, may need Tolvaptan
Metastatic Pancreatic Cancer:
-currently on chemotherapy with most recent dose on 07/18/25
-ONC following
FULL/Lovenox
Anticipated Discharge: Within 24 hours
Subjective/Interval History
-
Date of Service: July 22, 2025
No new complaints.
Objective Data
-
Vital Signs:
Vital Signs
Temp Pulse Resp BP Pulse Ox
99.4 F 87 18 121/71 94
07/22/25 07:30 07/22/25 07:30 07/22/25 07:30 07/22/25 07:30 07/22/25 07:30
I&O
07/21/25 07/22/25 07/23/25
06:59 06:59 06:59
Intake Total 840 / 840 2170 / 2170
Balance 840 / 840 2170 / 2170
[2025-07-22 11:44] LABS: Hematocrit 27.5 % (37.0-47.0); Hemoglobin 9.1 g/dL (12.0-16.0); Mean Corp Hgb Conc. 33.1 g/dL (33.0-37.0); Mean Corpuscular Volume 91.4 fL (81.0-99.0); Nucleated Red Blood Cells % 0 %; Platelet Count 413 10^3/uL (130-400); Red Cell Dist. Width 14.7 % (11.5-14.5)
[2025-07-22 12:05] LABS: Blood Urea Nitrogen 6 mg/dl (7-17); Calcium 8.0 mg/dl (8.4-10.2); Carbon Dioxide 20 mmol/L (22-30); Chloride 105 mmol/L (98-107); Estimated Creatinine Clearance 61 ml/min; Glucose 144 mg/dl (70-99); Potassium 5.0 mmol/L (3.5-5.1); Sodium 130 mmol/L (135-145); eGFR > 60.00
[2025-07-22] MEDS: TYLENOL 650 MG PO ×2 (14:36→20:41)
[2025-07-22] MEDS: LOVENOX 40 MG SC (17:49)
[2025-07-23] MEDS: STERILE WATER FOR INJECTION 10 ML IV ×4 (02:30→20:08)
[2025-07-23] MEDS: MAXIPIME 1000 MG IV ×4 (02:31→20:08)
[2025-07-23 03:36] VITALS: BP 134/79
[2025-07-23 06:00] VITALS: BMI 19.0
[2025-07-23 07:00] VITALS: BP 130/81
[2025-07-23] MEDS: MIRALAX 17 GRAMS PO (08:07)
[2025-07-23] MEDS: NEURONTIN 300 MG PO (08:08)
[2025-07-23] MEDS: PROTONIX 40 MG PO (08:08)
[2025-07-23 08:33] VITALS: BP 154/73; BP_SYST 82
[2025-07-23 08:44] VITALS: BP 149/68; BP_SYST 82
[2025-07-23 08:45] LABS: Hematocrit 30.9 % (37.0-47.0); Hemoglobin 10.2 g/dL (12.0-16.0); Mean Corp Hgb Conc. 33.0 g/dL (33.0-37.0); Mean Corpuscular Volume 90.9 fL (81.0-99.0); Platelet Count 477 10^3/uL (130-400); Red Cell Dist. Width 14.5 % (11.5-14.5)
[2025-07-23] MEDS: ZENPEP DELAYED RELEASE CAPSULE PO (09:08)
[2025-07-23 09:30] LABS: Blood Urea Nitrogen 4 mg/dl (7-17); Calcium 8.6 mg/dl (8.4-10.2); Carbon Dioxide 24 mmol/L (22-30); Chloride 99 mmol/L (98-107); Estimated Creatinine Clearance 60 ml/min; Glucose 94 mg/dl (70-99); Potassium 5.1 mmol/L (3.5-5.1); Sodium 130 mmol/L (135-145); eGFR > 60.00
--- NOTE | 2025-07-23 10:25 | W.PN.ONC2 ---
Today's Communication / Plan
-
.
Impression
Impression
a/w Nonneutropenic fever
IV pancreatic carcinoma with pleural involvement left lung s/p C9 abraxane/ gemcitabine 07/18- she did not rec GCSF with this cycle
left pleural effusion s/p thora 07/23
acute on chronic hyponatremia
Plan
Plan
follow pleural fluid cytology and culture
follow cultures
consider GCSF if neutropenic
daily CBC with diff
abx per ID
Subjective/Objective
Subjective
afebrile, no hypoxia or hypotension
Vital Signs:
Vital Signs
Temp Pulse Resp BP Pulse Ox
98.1 F 62 16 149/68 99
07/23/25 08:33 07/23/25 08:44 07/23/25 08:44 07/23/25 08:44 07/23/25 08:44
Lab Results:
Laboratory Data
WBC 3.8 10^3/uL (4.8-10.8) L 07/23/25 07:48
Hgb 10.2 g/dL (12.0-16.0) L 07/23/25 07:48
Plt Count 477 10^3/uL (130-400) H 07/23/25 07:48
eGFR > 60.00 07/23/25 07:48
Physical Exam
HEENT: No Jaundice
Pulmonary: Other (unlabored)
GI: Soft
Extremities: Pulses Present
[2025-07-23 10:37] LABS: Body Fluid Second Tech EF
[2025-07-23] MEDS: ZENPEP DELAYED RELEASE CAPSULE 1 CAPSULE PO ×2 (12:10→16:34)
[2025-07-23 12:31] LABS: Nucleated Red Blood Cells % 0 %
--- NOTE | 2025-07-23 13:33 | W.PN.HOSP.TC ---
Today's Communication/Plan
-
Assessment / Plan
Assessment / Plan
Leukopenic and last fever was on 07/20
S/p thoracentesis, culture pending
Blood cultures negative x 48 hours
Flu negative, serology negative
ID following, continue vancomycin and cefepime
Left pleural effusion
S/p thoracentesis
Follow-up fluid analysis and cultures
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
Fluid restrict
Metastatic prostate cancer
Currently on chemo most recent 07/18/2025
Oncology following
FULL/Lovenox
Anticipated Discharge: > 48 hours
Subjective/Interval History
-
Date of Service: July 23, 2025
Seen and examined. No new complaints. No acute overnight events.
Objective Data
-
Labs:
Laboratory Results
07/23/25
07:48
WBC 3.8 L
Hgb 10.2 L
Hct 30.9 L
Plt Count 477 H
Sodium 130 L
Potassium 5.1
Chloride 99
Carbon Dioxide 24
BUN 4 L
Creatinine 0.4 L
Glucose 94
Calcium 8.6
Vital Signs:
Vital Signs
Temp Pulse Resp BP Pulse Ox
98.1 F 62 16 149/68 99
07/23/25 08:33 07/23/25 08:44 07/23/25 08:44 07/23/25 08:44 07/23/25 08:44
I&O
07/22/25 07/23/25 07/24/25
06:59 06:59 06:59
Intake Total 2170 / 2170 1200 / 1200
Balance 2170 / 2170 1200 / 1200
Physical Exam
-
General: Well Developed, Well Nourished and No Apparent Distress
HEENT: Normocephalic and Atraumatic
Respiratory: Decreased Breath Sounds (Worse on the left side)
Cardiac: Regular Rhythm
GI: Soft, Nontender, Nondistended and Normal Bowel Sounds
Genito-urinary: No Costovertebral Tender
Musculoskeletal: No Clubbing, No Cyanosis and No Edema
Skin: Warm, Dry and IV Access / Catheter Site (Right anterior chest port clean dry intact)
Neuro: Awake and AO x 3
Psych: Calm
--- NOTE | 2025-07-23 13:48 | CM ---
Chart reviewed. Pt remains on IV ABX
Plan: Home with no needs at this time. Will fowllow for DC needs
[2025-07-23 15:00] VITALS: BP 158/90
[2025-07-23] MEDS: LOVENOX 40 MG SC (17:54)
[2025-07-23 23:00] VITALS: BP 149/77
[2025-07-24] MEDS: STERILE WATER FOR INJECTION 10 ML IV ×2 (02:42→08:44)
[2025-07-24] MEDS: MAXIPIME 1000 MG IV ×2 (02:43→08:44)
[2025-07-24 06:00] VITALS: BMI 17.7
[2025-07-24 07:15] VITALS: BP 153/74
[2025-07-24 08:23] LABS: Blood Urea Nitrogen 6 mg/dl (7-17); Calcium 9.3 mg/dl (8.4-10.2); Carbon Dioxide 27 mmol/L (22-30); Chloride 98 mmol/L (98-107); Estimated Creatinine Clearance 56 ml/min; Glucose 103 mg/dl (70-99); Potassium 5.5 mmol/L (3.5-5.1); Sodium 130 mmol/L (135-145); eGFR > 60.00
[2025-07-24] MEDS: PROTONIX 40 MG PO (08:44)
[2025-07-24] MEDS: NEURONTIN 300 MG PO (08:44)
[2025-07-24] MEDS: MIRALAX 17 GRAMS PO (08:47)
[2025-07-24] MEDS: ZENPEP DELAYED RELEASE CAPSULE 1 CAPSULE PO (08:52)
--- NOTE | 2025-07-24 09:21 | W.PN.ONC ---
Today's Communication / Plan
-
consider d/c home today on po abx
she has office f/u with me on 07/31 to consider resuming chemo
Impression
Impression
a/w Non-neutropenic fever
IV pancreatic carcinoma with pleural involvement left lung s/p C9 abraxane/ gemcitabine 07/18- she did not rec GCSF with this cycle
left pleural effusion s/p thora 07/23, 20cc ayla fluid. Gram stain w/ WBCs, no organisms.
acute on chronic hyponatremia
Plan
Plan
consider d/c home today on po abx
she has office f/u with me on 07/31 to consider resuming chemo
Subjective/Objective
Subjective/Objective
s/p thora yesterday, 20cc ayla fluid. Gram stain w/ WBCs, no organisms.
Vital Signs:
Vital Signs
Temp Pulse Resp BP Pulse Ox
97.7 F 74 18 153/74 98
07/24/25 07:15 07/24/25 07:15 07/24/25 07:15 07/24/25 07:15 07/24/25 07:15
Lab Results:
Laboratory Data
WBC 3.8 10^3/uL (4.8-10.8) L 07/23/25 07:48
Hgb 10.2 g/dL (12.0-16.0) L 07/23/25 07:48
Plt Count 477 10^3/uL (130-400) H 07/23/25 07:48
eGFR > 60.00 07/24/25 07:17
Orders
Orders
Orders From Last 24 Hours
07/24/25 09:09
Add On- LAB Routine
[2025-07-24 10:44] LABS: Hematocrit 33.3 % (37.0-47.0); Hemoglobin 11.0 g/dL (12.0-16.0); Mean Corp Hgb Conc. 33.0 g/dL (33.0-37.0); Mean Corpuscular Volume 91.2 fL (81.0-99.0); Nucleated Red Blood Cells % 0 %; Platelet Count 453 10^3/uL (130-400); Red Cell Dist. Width 14.4 % (11.5-14.5)
--- NOTE | 2025-07-24 11:10 | CM ---
CM reviewed chart, patient seen bedside.
Patient for d.c today.
IMM verbally reviewed, declined need for copy.
Patient confirms transport home.
CM will continue to follow.
Plan; home no needs
--- NOTE | 2025-07-24 13:20 | W.DCSUMMARY ---
Discharge Summary
Discharge Data
Date of Admission: 07/20/25
Date of Discharge: 07/24/25
-
Pending Results: No
Hospital Course
75y F with PMH significant for pancreatic cancer metastatic to the L lung / pleura
Presented with fever shortness of breath. Started on IV antibiotics. CT chest demonstrated no PE. Progressive left hemithorax pleural thickening and nodularity as well as progressive left pleural effusion, suspicious for progressive metastatic
disease. Mild atelectasis in the left lung base. Slightly more prominent 4.5 mm pleural-based nodule in the superior segment of the right lower lobe: 2 small metastatic focus. Was evaluated by infectious diseases and interventional radiology for
which a thoracentesis of the left pleural effusion was completed. Cultures were negative. Will discharge home with 2 more days of antibiotics orally.
Was seen and examined on day of discharge sitting in bedside chair comfortable. In extremely good spirits happy that she knows that she is going to be discharged.
NAD
Scleral Anicteric
MMM
No JVD
CTABL
RRR, S1/S2
Soft, NT, ND, BS+
Warm, Dry
AAOx3
Calm
Discharge Plan
-
Patient Disposition: Home (Routine Discharge)
Discharge Diagnosis/Procedures: pleural effusion
metastatic pancreatic cancer
Condition: Good
Diet: As tolerated
Activity: As tolerated
Activity Restrictions/Additional Instructions:
Presented with fever shortness of breath. Started on IV antibiotics. CT chest demonstrated no PE. Progressive left hemithorax pleural thickening and nodularity as well as progressive left pleural effusion, suspicious for progressive metastatic
disease. Mild atelectasis in the left lung base. Slightly more prominent 4.5 mm pleural-based nodule in the superior segment of the right lower lobe: 2 small metastatic focus. Was evaluated by infectious diseases and interventional radiology for
which a thoracentesis of the left pleural effusion was completed. Cultures were negative. Will discharge home with 2 more days of antibiotics orally.
Referrals:
Myesha Hall MD [Family Provider, Oncology]
Prescriptions:
New
levofloxacin 500 mg tablet
500 mg PO DAILY Qty: 1 0RF
Continued
lansoprazole 30 mg Capsule,Delayed Release(Dr/Ec)
30 mg PO DAILY
Creon 24,000-76,000 -120,000 unit Capsule,Delayed Release(Dr/Ec)
1 cap PO AC
gabapentin 300 mg Capsule
300 mg PO DAILY
polyethylene glycol 3350 [Miralax] 17 gram/dose Powder
17 g PO DAILY
Prolia 60 mg/mL Syringe
60 mg SC [id number]
lorazepam 0.5 mg Tablet
0.5 mg PO HSPRN PRN (Reason: anxiety)
Rx Instructions:
take one tablet before chemo on wednesday and afte on of each week
therapeutic multivitamin Tablet
1 tab PO DAILY
ascorbic acid (vitamin C) [Vitamin C] 500 mg Tablet
500 mg PO DAILY
Discharge Orders:
Discharge Patient (As Directed); Ordered 07/24/25
Ordered By: Esa Mendoza
Discharge Date and Time
Discharge Date/Time: 07/24/25 11:43
Print Language: CANADIAN
[2025-07-26 01:09] LABS: CA 19-9 63 U/mL (<=35)
== END 2025-07-24 11:43 | disposition home or self-care (01) | DRG 187 ==
LOC: 4 WEST ACU 21:47
PROVIDERS: Internal Medicine; Nurse Practitioner Acute Care; Radiology Vascular & Interventional Radiology; ADMITTING PHYSICIAN Hospitalist; ATTENDING PHYSICIAN Hospitalist; CONSULT PHYSICIAN Internal Medicine Infectious Disease; EMERGENCY PHYSICIAN Emergency Medicine; FAMILY PHYSICIAN Internal Medicine Hematology & Oncology; OTHER PHYSICIAN Internal Medicine Hematology & Oncology
PROC: 0W9B3ZZ Drainage of Left Pleural Cavity, Percutaneous Approach (ICD-10-PCS; 2025-07-23)
DX: J90 Pleural effusion, not elsewhere classified (principal); C25.9 Malignant neoplasm of pancreas, unspecified; Z68.1 Body mass index [BMI] 19.9 or less, adult; E22.2 Syndrome of inappropriate secretion of antidiuretic hormone; J98.11 Atelectasis; C78.02 Secondary malignant neoplasm of left lung; M06.9 Rheumatoid arthritis, unspecified; E78.5 Hyperlipidemia, unspecified; M81.0 Age-related osteoporosis without current pathological fracture; K21.9 Gastro-esophageal reflux disease without esophagitis; L40.9 Psoriasis, unspecified; Z87.891 Personal history of nicotine dependence; Z88.0 Allergy status to penicillin; Z79.899 Other long term (current) drug therapy; Z11.52 Encounter for screening for COVID-19
CPT/HCPCS: 32555; 71045; 71275; 80048; 80053; 80202; 81003; 81015; 82248; 83605; 83615; 84157; 85025; 85027; 86301; 87015; 87040; 87070; 87086; 87205; 87502; 87641; 87811; 88112; 88305; 89051; 96361; 96365; 96375; 99284; Q9967